=== PATIENT | male | born 1960 | race African-American/Black ===

== ENCOUNTER 2016-06-22 19:25 | Inpatient (IN) | payer OTHER ==
[2016-06-22 19:30] VITALS: BMI 23.2
[2016-06-22] MEDS ORDERED: chlordiazePOXIDE HCL 25 MG CAPSULE PO ONE (19:48)
[2016-06-22] MEDS ORDERED: SODIUM CHLORIDE 0.9% 500 ML INFUS.BAG IV ONE (19:48)
[2016-06-22] MEDS ORDERED: FOLIC ACID INJECTION - 1 MG, THIAMINE HCL 100 MG, MULTIVIT INJECTION ADULT 10 ML in SOD... IVPB ONE (19:51)
[2016-06-22 20:26] LABS: INR 1.21 (0.82-1.09); PROTHROMBIN TIME (PATIENT) 13.4 SEC (9.98-11.88)
[2016-06-22 20:33] LABS: MCH 36.8 pg (25.7-33.7); MCHC 33.2 g/dl (32.0-35.9); MEAN CELL VOLUME 110.8 fl (80-96); MEAN PLT VOLUME 10.2 fl (7.5-11.1); PLATELET COUNT 110 K/MM3 (134-434); RDW 15.7 % (11.9-15.9); WHITE BLOOD COUNT 6.4 K/mm3 (4.0-10.0)
[2016-06-22 20:43] LABS: ALCOHOL < 5.0 mg/dl (0-5)
[2016-06-22 20:47] LABS: TROPONIN I < 0.02 ng/ml (0.00-0.05)
[2016-06-22 20:55] LABS: ALBUMIN 3.3 g/dl (3.4-5.0); CALCIUM 8.8 mg/dL (8.5-10.1); PHOSPHOROUS 1.8 mg/dL (2.5-4.9); TOT PROT 7.6 g/dl (6.4-8.2)
[2016-06-22 20:59] LABS: BILIRUBIN,TOTAL 5.8 mg/dL (0.2-1.0); MAGNESIUM 1.8 mg/dL (1.8-2.4); PLATELET ESTIMATE SLT DECREASED (NORMAL); TARGET CELLS 3+
[2016-06-22 21:04] LABS: SALICYLATE < 4.0 mg/dl (0.0-30.0)
[2016-06-22] MEDS ORDERED: LIDOCAINE HCL 2% (50ML VIAL) SQ ONE (21:25)
[2016-06-22] MEDS ORDERED: LORAZEPAM CARPU-JECT 2 MG/ML DISP.SYRIN IVPUSH ONE (21:25)
[2016-06-22] MEDS ORDERED: TETANUS AND DIPHTHERIA TOXOID 0.5 ML DISP.SYRIN IM ONE (21:25)
--- NOTE | 2016-06-22 21:27 | PDOC ---
[id number]: Patient, Family Exam Limitations: No Limitations - History of Present Illness Initial Comments: 06/22/16 21:45 The patient is a 55 year old male with significant past medical history of seizure disorder and etoh use who presents to the ED BIBA from home with head laceration s/p unwitnessed fall prior to arrival. Patient is a poor historian, however family, at bedside, patient is answering questions appropriately and is at his neurological baseline. States he was carrying garbage bags to and from his apartment to the trash bin, where he had to stop multiple times because he felt tired. During his last trip, the last thing he remembers was walking down the stairs and then waking up on the floor. States when he woke up his neighbor and EMS was already present at the scene. Unsure of how long he lost consciousness for. He admits to not being compliant with his seizure medications. Patient does not give a clear history and is currently not taking any medications. Patient reports he has not been eating or sleeping well for the last month. Admits he has been feeling a bit down after his divorce a couple months ago with no suicidal/homicidal ideation. Denies any generalize pain, changes in vision, headache, dizziness, bladder/bowel incontinence, paresthesias, or changes in sensation. The patient denies fever, chills, cough, SOB, chest pain, and palpitations. The patient denies abdominal pain, nausea, vomiting, and diarrhea. Allergies: NKDA Social History: etoh abuse. Lives at home alone. Past Surgical History: hernia s/p repair PCP: Dr. Bharathi Fitzpatrick <Martine Herring - Last Filed: 06/23/16 02:25> <Shekhar Sorenson - Last Filed: 06/23/16 06:26> - General Chief Complaint: Seizure Stated Complaint: INJURY Past History <Key Seaman - Last Filed: 06/23/16 00:33> <Martine Herring - Last Filed: 06/23/16 02:25> - Past Medical History HTN: Yes Suicide Attempt (Hx): No Seizures: Yes - Immunization History Immunization Up to Date: No - Psycho/Social/Smoking Cessation Hx Anxiety: No Suicidal Ideation: No Smoking History: Former smoker Have you smoked in the past 12 months: No Number of Cigarettes Smoked Daily: 0 If you are a former smoker, when did you quit?: 2 years Cigars Per Day: 0 Information on smoking cessation initiated: No 'Breaking Loose' booklet given: 10/23/14 Hx Alcohol Use: No Drug/Substance Use Hx: No Substance Use Type: Alcohol <Shekhar Sorenson - Last Filed: 06/23/16 06:26> - Past Medical History Allergies/Adverse Reactions: Allergies Allergy/AdvReac Type Severity Reaction Status Date / Time No Known Allergies Allergy Verified 06/23/16 02:01 Home Medications: Ambulatory Orders NK [No Known Home Medication] 06/23/16 Review of Systems - Review of Systems Able to Perform ROS?: Yes Comments:: 06/22/16 21:45 GENERAL/CONSTITUTIONAL: +lack of appetite No fever or chills. No weakness. HEAD, EYES, EARS, NOSE AND THROAT: No change in vision. No ear pain or discharge. No sore throat. CARDIOVASCULAR: No chest pain or shortness of breath. RESPIRATORY: No cough, wheezing, or hemoptysis. GASTROINTESTINAL: No nausea, vomiting, diarrhea or constipation. GENITOURINARY: No dysuria, frequency, or change in urination. MUSCULOSKELETAL: No joint or muscle swelling or pain. No neck or back pain. SKIN: No rash NEUROLOGIC: +LOC No headache, vertigo, or change in strength/sensation. ENDOCRINE: No increased thirst. No abnormal weight change. HEMATOLOGIC/LYMPHATIC: No anemia, easy bleeding, or history of blood clots. ALLERGIC/IMMUNOLOGIC: No hives or skin allergy. <Martine Herring - Last Filed: 06/23/16 02:25> *Physical Exam - Vital Signs Last Vital Signs Temp Pulse Resp BP Pulse Ox 98.1 F 20 L 108 H 140/99 97 06/22/16 19:28 06/22/16 19:28 06/22/16 19:28 06/22/16 19:28 06/22/16 19:28 <Key Seaman - Last Filed: 06/23/16 00:33> - Vital Signs Last Vital Signs Temp Pulse Resp BP Pulse Ox 98.1 F 20 L 108 H 140/99 97 06/22/16 19:28 06/22/16 19:28 06/22/16 19:28 06/22/16 19:28 06/22/16 19:28 - Physical Exam Comments: 06/22/16 22:09 GENERAL: Awake, alert, and fully oriented, in no acute distress. Pt is uncomfortable appearing and tremulous. Unkempt. Pt is not in collar on arrival, place into stable mobilization upon physician encounter. HEAD: No evidence of trauma aside from frontal midline stellate/burst superficial laceration 2cm superior to glabrum, no depression or deformity, no midline cervical tenderness on palpation. Unable to clear c spine via nexxus. EYES: Otherwise unremarkable except for icterus, bite is reproducible, no malocclusion. No periorbital anesthesia. No pain with extraocular movement, no nausea with extraocular movement. ENT: Auricles normal inspection, hearing grossly normal, nares patent, oropharynx clear without exudates. Moist mucosa NECK: Normal ROM, supple, no lymphadenopathy, JVD, or masses. LUNGS: Breath sounds equal, clear to auscultation bilaterally. No wheezes, and no crackles HEART: Regular rate and rhythm, normal S1 and S2, no murmurs, rubs or gallops ABDOMEN: Soft, nontender, normoactive bowel sounds. No guarding, no rebound. No masses. No caput medusae noted. EXTREMITIES: Left knee abrasion midline and mild edema of the knee. No restriction of movement. No valgus or varum laxity or deformity. No crepitus. No erythema or tenderness NEUROLOGICAL: Cranial nerves II through XII grossly intact and symmetric. Normal speech. No neurological deficits. As per family, patient is at neurological baseline. SKIN: Warm, Dry, normal turgor, no rashes noted. No telangiectasia. <Martine Herring - Last Filed: 06/23/16 02:25> - Vital Signs Last Vital Signs Temp Pulse Resp BP Pulse Ox 98.1 F 20 L 108 H 140/99 97 06/22/16 19:28 06/22/16 19:28 06/22/16 19:28 06/22/16 19:28 06/22/16 19:28 <Shekhar Sorenson - Last Filed: 06/23/16 06:26> Procedures - Laceration/Wound Repair Medial Frontal Wound Length: 2.6 to 5.0 cm Wound Explored: clean, no foreign body present Wound's Depth, Shape: stellate Irrigated w/ Saline: Yes Betadine Prep: Yes Anesthesia: 1% Lidocaine w/ Epi Amount of Anesthetic (ccs): 4 Wound Repaired With: Sutures Suture Size/Type: 6:0 Number of Sutures: 10 Sterile Dressing Applied: Yes (xerform, dry gauze) <Key Seaman - Last Filed: 06/23/16 00:33> Heart Score/ECG Review - ECG Impressions Comment:: 06/22/16 23:40 NSR @79bpm Voltage criteria for L ventricular hypertrophy L anterior fascicular block Nonspecific T wave abnormality <Martine Herring - Last Filed: 06/23/16 02:25> ED Treatment Course - LABORATORY CBC & Chemistry Diagram: 06/22/16 19:57 06/22/16 19:57 - ADDITIONAL ORDERS Additional order review: Laboratory Results 06/22/16 06/22/16 06/22/16 19:57 19:57 19:57 INR Sodium Potassium Chloride Carbon Dioxide Anion Gap BUN Creatinine Creat Clearance w eGFR Random Glucose Lactic Acid Calcium Phosphorus Magnesium Total Bilirubin AST ALT Alkaline Phosphatase Creatine Kinase 231 Creatine Kinase Index 1.1 CK-MB (CK-2) 2.641 CK-MB (CK-2) Rel Index Cancelled Troponin I < 0.02 B-Natriuretic Peptide Total Protein Albumin Lipase Salicylates < 4.0 Acetaminophen < 2.0 L Alcohol, Quantitative < 5.0 06/22/16 06/22/16 06/22/16 19:57 19:57 19:57 INR 1.21 H D Sodium 133 L Potassium 3.2 L Chloride 94 L D Carbon Dioxide 19 L D Anion Gap 20 H BUN 13 Creatinine 2.0 H D Creat Clearance w eGFR 35.13 Random Glucose 209 H D Lactic Acid 6.694 H* Calcium 8.8 Phosphorus 1.8 L Magnesium 1.8 Total Bilirubin 5.8 H D AST 521 H D ALT 176 H D Alkaline Phosphatase 607 H D Creatine Kinase Creatine Kinase Index CK-MB (CK-2) CK-MB (CK-2) Rel Index Troponin I B-Natriuretic Peptide 185.71 H Total Protein 7.6 Albumin 3.3 L Lipase 138 Salicylates Acetaminophen Alcohol, Quantitative 06/22/16 19:57 RBC 3.14 L MCV 110.8 H MCHC 33.2 RDW 15.7 MPV 10.2 Neutrophils % 92.0 H D Lymphocytes % 2.0 L D Monocytes % 5.0 Basophils % 1.0 - Medications Given in the ED: ED Medications Discontinued Medications Generic Name Dose Route Start Last Admin Trade Name Domonique PRN Reason Stop Dose Admin Chlordiazepoxide HCl 50 mg 06/22/16 19:48 06/22/16 21:15 Librium - PO 06/22/16 19:49 50 mg ONCE ONE Administration Lidocaine HCl 20 mg 06/22/16 21:25 06/22/16 21:57 Xylocaine 2% SQ 06/22/16 21:26 20 mg ONCE ONE Administration Lidocaine/Epinephrine 20 ml 06/22/16 21:36 06/22/16 21:37 Xylocaine 1%-Epi 1:100,000 IJ 06/22/16 21:37 1 applic ONCE ONE Administration Lorazepam 1 mg 06/22/16 21:25 06/22/16 21:53 Ativan Injection - IVPUSH 06/22/16 21:26 1 mg ONCE ONE Administration Sodium Chloride 500 ml 06/22/16 19:48 06/22/16 21:27 Normal Saline - IV 06/22/16 19:49 500 ml ONCE ONE Administration Tetanus/Diphtheria Toxoids Adsorbed 0.5 ml 06/22/16 21:25 06/22/16 21:53 Decavac - IM 06/22/16 21:26 0.5 ml .ONCE ONE Administration <Key Seaman - Last Filed: 06/23/16 00:33> - LABORATORY CBC & Chemistry Diagram: 06/22/16 19:57 06/22/16 19:57 - ADDITIONAL ORDERS Additional order review: Laboratory Results 06/22/16 06/22/16 06/22/16 19:57 19:57 19:57 INR Sodium Potassium Chloride Carbon Dioxide Anion Gap BUN Creatinine Creat Clearance w eGFR Random Glucose Lactic Acid Calcium Phosphorus Magnesium Total Bilirubin AST ALT Alkaline Phosphatase Creatine Kinase 231 Creatine Kinase Index 1.1 CK-MB (CK-2) 2.641 CK-MB (CK-2) Rel Index Cancelled Troponin I < 0.02 B-Natriuretic Peptide Total Protein Albumin Lipase Salicylates < 4.0 Acetaminophen < 2.0 L Alcohol, Quantitative < 5.0 06/22/16 06/22/16 06/22/16 19:57 19:57 19:57 INR 1.21 H D Sodium 133 L Potassium 3.2 L Chloride 94 L D Carbon Dioxide 19 L D Anion Gap 20 H BUN 13 Creatinine 2.0 H D Creat Clearance w eGFR 35.13 Random Glucose 209 H D Lactic Acid 6.694 H* Calcium 8.8 Phosphorus 1.8 L Magnesium 1.8 Total Bilirubin 5.8 H D AST 521 H D ALT 176 H D Alkaline Phosphatase 607 H D Creatine Kinase Creatine Kinase Index CK-MB (CK-2) CK-MB (CK-2) Rel Index Troponin I B-Natriuretic Peptide 185.71 H Total Protein 7.6 Albumin 3.3 L Lipase 138 Salicylates Acetaminophen Alcohol, Quantitative 06/22/16 19:57 RBC 3.14 L MCV 110.8 H MCHC 33.2 RDW 15.7 MPV 10.2 Neutrophils % 92.0 H D Lymphocytes % 2.0 L D Monocytes % 5.0 Basophils % 1.0 - RADIOLOGY Radiograph Interpretation: 06/23/16 02:25 EXAM: CT abdomen and pelvis without contrast Reviewed by Imaging supervisor carton and can supply: FINDINGS: Lung bases are clear. The visualized cardiac chambers are normal size and configuration. Gallbladder is collapsed or removed. No biliary duct dilation. Liver is mildly enlarged at 18.3 cm. Normal unenhanced pancreas, spleen, adrenal glands and kidneys. The stomach and abdominal small and large bowel are normal. There is no aortic aneurysm. There is no significant retroperitoneal lymphadenopathy. No mesenteric edema or retroperitoneal hematoma. The pelvic small and large bowel are normal. The appendix is normal. The urinary bladder and prostate gland are normal. No pelvic free fluid is identified. There is no significant pelvic lymphadenopathy. Tiny fat-containing bilateral inguinal hernias are noted. No fractures identified. IMPRESSION: Mild hepatomegaly. No evidence of acute pathology. - Medications Given in the ED: ED Medications Discontinued Medications Generic Name Dose Route Start Last Admin Trade Name Freq PRN Reason Stop Dose Admin Sodium Chloride 500 ml 06/22/16 19:48 06/22/16 21:27 Normal Saline - IV 06/22/16 19:49 500 ml ONCE ONE Administration <Martine Herring - Last Filed: 06/23/16 02:25> - LABORATORY CBC & Chemistry Diagram: 06/22/16 19:57 06/22/16 19:57 - ADDITIONAL ORDERS Additional order review: Laboratory Results 06/22/16 06/22/16 06/22/16 19:57 19:57 19:57 INR Sodium Potassium Chloride Carbon Dioxide Anion Gap BUN Creatinine Creat Clearance w eGFR Random Glucose Lactic Acid Calcium Phosphorus Magnesium Total Bilirubin AST ALT Alkaline Phosphatase Creatine Kinase 231 Creatine Kinase Index 1.1 CK-MB (CK-2) 2.641 CK-MB (CK-2) Rel Index Cancelled Troponin I < 0.02 B-Natriuretic Peptide Total Protein Albumin Lipase Salicylates < 4.0 Acetaminophen < 2.0 L Alcohol, Quantitative < 5.0 06/22/16 06/22/16 06/22/16 19:57 19:57 19:57 INR 1.21 H D Sodium 133 L Potassium 3.2 L Chloride 94 L D Carbon Dioxide 19 L D Anion Gap 20 H BUN 13 Creatinine 2.0 H D Creat Clearance w eGFR 35.13 Random Glucose 209 H D Lactic Acid 6.694 H* Calcium 8.8 Phosphorus 1.8 L Magnesium 1.8 Total Bilirubin 5.8 H D AST 521 H D ALT 176 H D Alkaline Phosphatase 607 H D Creatine Kinase Creatine Kinase Index CK-MB (CK-2) CK-MB (CK-2) Rel Index Troponin I B-Natriuretic Peptide 185.71 H Total Protein 7.6 Albumin 3.3 L Lipase 138 Salicylates Acetaminophen Alcohol, Quantitative 06/22/16 19:57 RBC 3.14 L MCV 110.8 H MCHC 33.2 RDW 15.7 MPV 10.2 Neutrophils % 92.0 H D Lymphocytes % 2.0 L D Monocytes % 5.0 Basophils % 1.0 - RADIOLOGY Radiology Studies Ordered: Category Date Time Status CERVICAL SPINE CT W/O CONTR [CT] Stat CT Scan 06/22/16 20:[address] W/O CONTRAST [CT] Stat CT Scan 06/22/16 20:[address] WITHOUT CONTRAST [CT] Stat CT Scan 06/22/16 19:47 Completed CHEST X-RAY PORTABLE* [RAD] Stat Radiology 06/22/16 19:46 Completed <Shekhar Sorenson - Last Filed: 06/23/16 06:26> Medical Decision Making - Medical Decision Making 06/22/16 21:[address] Malika Neri (via answering service) at 21:39 Awaiting call back 06/22/16 22:56 Second call placed to Dr. Neri (via answering service) at 22:56 and patient's case was discussed. <Martine Herring - Last Filed: 06/23/16 02:25> - Medical Decision Making 06/22/16 21:37 This is a 55yo m with chronic alcoholism who is noted to have unwitnessed fall with significant laceration of the forehead and noncompliant with medication and healthcare in general. He also is mildly treumlous and has icterus; he has a negative CT head, maxillofacial and cervical spine; CXR negative; EKG reassuring. His PE shows only tremulousness, iceterus, laceration. He will be given ativen IV and librium PO; will hydrate, give banana bag; will obtain CT abd/pelvis with contrast for better characterization of any intraabdominal lesions. Will admit patient to telemetry for unwitnessed fall of unknown etiology. 06/22/16 23:05 The patient has negative CT and is endorsed to Dr. Neri for further management to telemetry. 06/23/16 06:25 <Shekhar Sorenson - Last Filed: 06/23/16 06:26> *DC/Admit/Observation/Transfer <Key Seaman - Last Filed: 06/23/16 00:33> - Attestations Scribe Attestion: 06/22/16 21:46 Documentation prepared by Martine Herring, acting as medical laboratory specialist for Shekhar Sorenson MD, MD <Martine Herring - Last Filed: 06/23/16 02:25> - Discharge Dispostion Admit: Yes - Attestations Physician Attestion: 06/23/16 06:26 I, Dr. Shekhar Sorenson MD, attest that this document has been prepared under my direction and personally reviewed by me in its entirety. I further attest, that it accurately reflects all work, treatment, procedures and medical decision -making performed by me. <Shekhar Sorenson - Last Filed: 06/23/16 06:26> Diagnosis at time of Disposition: Alcoholism, Dehydration Syncope Qualifiers: Syncope type: unspecified Qualified Code(s): R55 - Syncope and collapse Facial laceration Qualifiers: Encounter type: subsequent encounter Qualified Code(s): S01.81XD - Laceration without foreign body of other part of head, subsequent encounter - Discharge Dispostion Condition at time of disposition: Guarded - Referrals
[2016-06-22] MEDS ORDERED: LIDOCAINE 1%/EPI 1:100000 (20 ML MULTI DOSE VIAL) IJ ONE (21:36)
[2016-06-22] MEDS ORDERED: LIDOCAINE HCL 2% (20ML MULTI-DOSE VIAL) NR ONE (21:40)
[2016-06-22] MEDS ORDERED: LORAZEPAM CARPU-JECT 2 MG/ML DISP.SYRIN ONE (21:41)
[2016-06-22] MEDS ORDERED: chlordiazePOXIDE HCL 25 MG CAPSULE ONE (21:42)
[2016-06-23] MEDS: DEXTROSE 5%-0.45% SALINE 1,000 ML IV SCH ×3 (02:35→22:53)
[2016-06-23] MEDS ORDERED: chlordiazePOXIDE HCL 25 MG CAPSULE PO SCH (06:00)
[2016-06-23] MEDS ORDERED: chlordiazePOXIDE HCL 25 MG CAPSULE ONE ×3 (06:51→12:23)
[2016-06-23 07:46] LABS: MCH 36.6 pg (25.7-33.7); MCHC 32.7 g/dl (32.0-35.9); MEAN CELL VOLUME 111.6 fl (80-96); MEAN PLT VOLUME 10.4 fl (7.5-11.1); PLATELET COUNT 92 K/MM3 (134-434); RDW 15.7 % (11.9-15.9); WHITE BLOOD COUNT 6.6 K/mm3 (4.0-10.0)
[2016-06-23 07:52] LABS: URINE APPEARANCE CLOUDY; URINE COLOR AMBER; URINE GLUCOSE (UA) 1+ (NEGATIVE); URINE KETONE TRACE (NEGATIVE); URINE LEUK ESTERASE NEGATIVE (NEGATIVE); URINE NITRITE NEGATIVE (NEGATIVE); URINE UROBILINOGEN 4.0 E.U/dl E.U./dl (0.2-1.0)
[2016-06-23 07:57] LABS: URINE BLOOD 2+ (NEGATIVE); URINE PROTEIN 2+ (NEGATIVE)
[2016-06-23 08:00] LABS: URINE BACTERIA RARE /hpf (NONE SEEN); URINE HYALINE CAST 28 /lpf; URINE MUCUS MANY; URINE RBC 2 /hpf (0-3); URINE WBC 39 /hpf (3-5)
[2016-06-23 08:27] LABS: ALBUMIN 2.8 g/dl (3.4-5.0); AMYLASE 63 U/L (25-115); ANION GAP 13 (8-16); BILIRUBIN,TOTAL 6.7 mg/dL (0.2-1.0); CALCIUM 9.1 mg/dL (8.5-10.1); CO2 23 mmol/L (21-32); COCKROFT - GAULT 76; CREATININE 1.1 mg/dL (0.7-1.3); GLUCOSE,RANDOM 95 mg/dL (74-106); SGPT/ALT 161 U/L (12-78); TOT PROT 6.7 g/dl (6.4-8.2)
[2016-06-23 08:31] LABS: ALK PHOS 531 U/L (45-117); TROPONIN I 0.02 ng/ml (0.00-0.05)
[2016-06-23 08:46] LABS: SGOT/AST 518 U/L (15-37)
--- NOTE | 2016-06-23 09:00 | PN ---
Progress Note (short form) - Note Progress Note: Consult Dictated Syncope Plan: Telemetry Echo Watch for withdrawal.
[2016-06-23] MEDS ORDERED: POTASSIUM CHLORIDE TABS 20 MEQ TABLET.ER (FP) PO ONE (09:33)
[2016-06-23] MEDS ORDERED: POTASSIUM CHLORIDE TABS 10 MEQ TABLET.ER (FP) ONE (09:34)
[2016-06-23] MEDS: POTASSIUM CHLORIDE TABS 20 MEQ TABLET.ER (FP) PO SCH (09:35)
[2016-06-23] MEDS ORDERED: HEPARIN NA (PORCINE) 5,000 UNITS/ML 1ML VIAL ONE (09:44)
[2016-06-23] MEDS ORDERED: THIAMINE HCL 100 MG TABLET (FP) PO SCH (10:00)
--- NOTE | 2016-06-23 10:03 | CONS ---
CARDIOLOGY CONSULTATION DATE OF CONSULTATION: 06/23/2016 CONSULTATION REQUESTED BY: Malika Neri MD REASON FOR CONSULTATON: Syncope. HISTORY OF PRESENT ILLNESS: The patient is a 55-year-old male with past history of seizure disorder and alcohol abuse who was brought into the emergency room by ambulance after falling with head laceration after an unwitnessed fall. The family was at the bedside and reported to the ER that he was at his neurological baseline. He states that he was carrying garbage bags up and down stairs from his apartment to the trash bin where he had to stop on multiple occasions, feeling generally tired. He denies chest pain or palpitation. He does not recall falling although there is report that he lost consciousness. Head CT showed no intracranial hemorrhage but some soft tissue swelling. Patient is unable to give a totally clear history. He has been upset and stressed out after his recent divorce. He denies prior cardiac history. PAST MEDICAL HISTORY: His past medical history is as above. CURRENT MEDICATIONS: Norvasc 5 mg daily, Librium 50 t.i.d., folic acid, subcutaneous heparin 5000 b.i.d. for DVT prophylaxis, potassium supplementation and vitamin B1 supplementation. ALLERGIES: He has no allergies. FAMILY HISTORY: Negative for early CAD or sudden cardiac . SOCIAL HISTORY: He is a former smoker and drinks alcohol heavily. PHYSICAL EXAMINATION: Vital signs: He is afebrile. Temperature 97.5, pulse 89, blood pressure 140/90. O2 saturation 97% on room air. Anicteric. HEENT: No carotid bruits. Heart: S1, S2, regular, no murmurs. Chest: Clear. Abdomen: Soft, nontender. Extremities: No edema. EKG showed normal sinus rhythm with LVH, possible old septal ND. Chest x-ray was done in the emergency room and showed no acute infiltrates. CBC: White count 6.6, hematocrit 32.7, platelets 92. INR 1.2. Sodium 136, potassium 3.1, currently being repleted. Creatinine 1.1. Lactic acid 6.6. AST 518, ALT 16, alkaline phosphatase 531. CK and troponin negative x 2 sets. Tox screen was negative for salicylates, Tylenol or alcohol. Patient states he has not had a drink in over 2 weeks. Urinalysis showed 2+ protein, 1+ glucose, trace ketones, 2+ blood. Negative nitrites and negative leukocyte esterase. ASSESSMENT: Syncopal episode. PLAN: 1. Telemetry x 24 hours to rule out arrhythmia. 2. Echocardiogram for assessment of structural heart disease. 3. Consideration for neurological evaluation. 4. Watch for signs of withdrawal. Thank you for the consultation. Will follow. SOLO PEDERSEN M.D. SUMAYA/[id number]
[2016-06-23] MEDS: amLODIPine BESYLATE 5 MG TABLET (FP) PO SCH (10:21)
[2016-06-23] MEDS: FOLIC ACID 1 MG TABLET (FP) PO SCH (10:21)
[2016-06-23] MEDS: HEPARIN NA (PORCINE) 5,000 UNITS/ML 1ML VIAL SQ SCH ×2 (10:21→22:48)
[2016-06-23] MEDS ORDERED: chlordiazePOXIDE HCL 25 MG CAPSULE PO PRN (10:45)
--- NOTE | 2016-06-23 10:51 | CONSULT ---
Consult Detox [facility] Reason for Current Admission/Consult: Alcohol withdrawal sx. Referred by:: Malika Neri MD - History History of Present Illness: 55 y/o man BIBA because of a fall and laceration of forehead. According to pt. last drink was almost a week ago. - History Source History Provided By: Patient, Medical Record Limitations to Obtaining History: No Limitations - Alcohol/Substance Use Hx Alcohol Use: Yes - Past Medical History [employer]PER[employer]OR [employer]ISH[employer] RO[employer]: Yes: Seizure Cardio/Vascular: Yes: HTN - Significant Medical Findings: Laboratory Tests 06/22/16 06/22/16 06/22/16 19:57 19:57 19:57 WBC 6.4 RBC 3.14 L Hgb 11.6 L Hct 34.8 L MCV 110.8 H MCHC 33.2 RDW 15.7 Plt Count 110 L D MPV 10.2 Neutrophils % 92.0 H D Lymphocytes % 2.0 L D Monocytes % 5.0 Basophils % 1.0 Differential Comment Manual diff done Platelet Estimate Slt decreased Macrocytosis 4+ Target Cells 3+ Morphology Comment Slide scanned INR 1.21 H D Sodium 133 L Potassium 3.2 L Chloride 94 L D Carbon Dioxide 19 L D Anion Gap 20 H BUN 13 Creatinine 2.0 H D Creat Clearance w eGFR 35.13 Random Glucose 209 H D Lactic Acid Calcium 8.8 Phosphorus 1.8 L Magnesium 1.8 Total Bilirubin 5.8 H D AST 521 H D ALT 176 H D Alkaline Phosphatase 607 H D Creatine Kinase Creatine Kinase Index CK-MB (CK-2) CK-MB (CK-2) Rel Index Troponin I B-Natriuretic Peptide 185.71 H Total Protein 7.6 Albumin 3.3 L Total Amylase Lipase 138 Urine Color Urine Appearance Urine pH Ur Specific [place] Urine Protein Urine Glucose (UA) Urine Ketones Urine Blood Urine Nitrite Urine Bilirubin Urine Urobilinogen Ur Leukocyte Esterase Urine RBC Urine WBC Urine Bacteria Hyaline Casts Urine Mucus Salicylates Acetaminophen Alcohol, Quantitative 06/22/16 06/22/16 06/22/16 19:57 19:57 19:57 WBC RBC Hgb Hct MCV MCHC RDW Plt Count MPV Neutrophils % Lymphocytes % Monocytes % Basophils % Differential Comment Platelet Estimate Macrocytosis Target Cells Morphology Comment INR Sodium Potassium Chloride Carbon Dioxide Anion Gap BUN Creatinine Creat Clearance w eGFR Random Glucose Lactic Acid 6.694 H* Calcium Phosphorus Magnesium Total Bilirubin AST ALT Alkaline Phosphatase Creatine Kinase 231 Creatine Kinase Index 1.1 CK-MB (CK-2) 2.641 CK-MB (CK-2) Rel Index Troponin I < 0.02 B-Natriuretic Peptide Total Protein Albumin Total Amylase Lipase Urine Color Urine Appearance Urine pH Ur Specific [place] Urine Protein Urine Glucose (UA) Urine Ketones Urine Blood Urine Nitrite Urine Bilirubin Urine Urobilinogen Ur Leukocyte Esterase Urine RBC Urine WBC Urine Bacteria Hyaline Casts Urine Mucus Salicylates < 4.0 Acetaminophen < 2.0 L Alcohol, Quantitative < 5.0 06/22/16 06/23/16 06/23/16 19:57 06:10 06:10 WBC 6.6 RBC 2.93 L Hgb 10.7 L Hct 32.7 L MCV 111.6 H MCHC 32.7 RDW 15.7 Plt Count 92 L MPV 10.4 Neutrophils % Y Lymphocytes % Y Monocytes % Basophils % Differential Comment Platelet Estimate Macrocytosis Target Cells Morphology Comment INR Sodium 136 Potassium 3.1 L Chloride 100 Carbon Dioxide 23 D Anion Gap 13 BUN 9 D Creatinine 1.1 D Creat Clearance w eGFR > 60 Random Glucose 95 D Lactic Acid Calcium 9.1 Phosphorus Magnesium Total Bilirubin 6.7 H AST 518 H ALT 161 H Alkaline Phosphatase 531 H Creatine Kinase 583 H D Creatine Kinase Index 0.8 CK-MB (CK-2) CK-MB (CK-2) Rel Index Cancelled Troponin I 0.02 B-Natriuretic Peptide Total Protein 6.7 Albumin 2.8 L Total Amylase 63 Lipase 229 Urine Color Urine Appearance Urine pH Ur Specific [place] Urine Protein Urine Glucose (UA) Urine Ketones Urine Blood Urine Nitrite Urine Bilirubin Urine Urobilinogen Ur Leukocyte Esterase Urine RBC Urine WBC Urine Bacteria Hyaline Casts Urine Mucus Salicylates Acetaminophen Alcohol, Quantitative 06/23/16 06/23/16 06:10 07:15 WBC RBC Hgb Hct MCV MCHC RDW Plt Count MPV Neutrophils % Lymphocytes % Monocytes % Basophils % Differential Comment Platelet Estimate Macrocytosis Target Cells Morphology Comment INR Sodium Potassium Chloride Carbon Dioxide Anion Gap BUN Creatinine Creat Clearance w eGFR Random Glucose Lactic Acid Calcium Phosphorus Magnesium Total Bilirubin AST ALT Alkaline Phosphatase Creatine Kinase Creatine Kinase Index CK-MB (CK-2) CK-MB (CK-2) Rel Index Cancelled Troponin I B-Natriuretic Peptide Total Protein Albumin Total Amylase Lipase Urine Color Divine Urine Appearance Cloudy Urine pH 5.0 Ur Specific [place] 1.024 Urine Protein 2+ H Urine Glucose (UA) 1+ H Urine Ketones Trace H Urine Blood 2+ H Urine Nitrite Negative Urine Bilirubin 4.0 Urine Urobilinogen 4.0 e.u/dl Ur Leukocyte Esterase Negative Urine RBC 2 Urine WBC 39 Urine Bacteria Rare Hyaline Casts 28 Urine Mucus Many Salicylates Acetaminophen Alcohol, Quantitative labs noted CIWA Score - CIWA Score Nausea/Vomitin-Mild Nausea/No Vomiting Muscle Tremors: 4-Moderate,w/Arms Extend Anxiety: 4-Mod. Anxious/Guarded Agitation: 3 Paroxysmal Sweats: 3 Orientation: 0-Oriented Tacttile Disturbances: 0-None Auditory Disturbances: 0-None Visual Disturbances: 0-None Headache: 0-None Present CIWA-Ar Total Score: 15 Assessment Plan - Diagnosis (1) Alcohol dependence with uncomplicated withdrawal Status: Acute - Plan Plan: I advice pt. to attend IOP upon discharge. - Medication Detox Regimen/Protocol: Narciso
[2016-06-23 11:25] LABS: PLATELET ESTIMATE SLT DECREASED (NORMAL)
[2016-06-23 11:28] LABS: HOWELL-JOLLY BODIES SEEN
[2016-06-23 11:30] LABS: TARGET CELLS 3+
[2016-06-23] MEDS: chlordiazePOXIDE HCL 25 MG CAPSULE PO SCH ×3 (12:24→22:48)
--- NOTE | 2016-06-23 12:29 | EKG ---
Test Reason : Blood Pressure : / mmHG Vent. Rate : 079 BPM Atrial Rate : 079 BPM P-R Int : 150 ms QRS Dur : 084 ms QT Int : 400 ms P-R-T Axes : 060 036 039 degrees QTc Int : 458 ms NORMAL SINUS RHYTHM VOLTAGE CRITERIA FOR LEFT VENTRICULAR HYPERTROPHY CANNOT RULE OUT SEPTAL INFARCT , AGE UNDETERMINED ABNORMAL ECG WHEN COMPARED WITH ECG OF 23-OCT-2014 15:30, MINIMAL CRITERIA FOR SEPTAL INFARCT ARE NOW PRESENT NONSPECIFIC T WAVE ABNORMALITY NO LONGER EVIDENT IN INFERIOR LEADS T WAVE INVERSION NO LONGER EVIDENT IN ANTERIOR LEADS Confirmed by CLARITA JONES MD ([id number]) on 06/23/2016 12:29:26 PM Referred By: Confirmed By:CLARITA JONES MD
[2016-06-23] MEDS ORDERED: PNEUMOC 13-VAL CONJ-DIP CRM/PF 0.5 ML DISP.SYRIN IM ONE (16:20)
--- NOTE | 2016-06-23 16:37 | HP ---
Admitting History and Physical - Admission History of Present Illness: The patient is a 55 year old male with significant past medical history of seizure disorder and etoh use who presents to the ED BIBA from home with head laceration s/p unwitnessed fall prior to arrival. Patient is a poor historian, however family, at bedside, patient is answering questions appropriately and is at his neurological baseline. States he was carrying garbage bags to and from his apartment to the trash bin, where he had to stop multiple times because he felt tired. During his last trip, the last thing he remembers was walking down the stairs and then waking up on the floor. States when he woke up his neighbor and EMS was already present at the scene. Unsure of how long he lost consciousness for. He admits to not being compliant with his seizure medications. Patient does not give a clear history and is currently not taking any medications. Patient reports he has not been eating or sleeping well for the last month. Admits he has been feeling a bit down after his divorce a couple months ago with no suicidal/homicidal ideation. Denies any generalize pain, changes in vision, headache, dizziness, bladder/bowel incontinence, paresthesias, or changes in sensation. 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 Cardiovascular: Yes: HTN - Smoking History Smoking history: Current some day smoker Have you smoked in the past 12 months: No Aproximately how many cigarettes per day: 2 If you are a former smoker, when did you quit?: 2 years - Alcohol/Substance Use Hx Alcohol Use: Yes History of Substance Use: reports: None (denies) Home Medications - Allergies Allergies/Adverse Reactions: Allergies Allergy/AdvReac Type Severity Reaction Status Date / Time No Known Allergies Allergy Verified 06/23/16 02:01 - Home Medications Home Medications: Ambulatory Orders Amlodipine Besylate [Norvasc -] 5 mg PO DAILY #30 tablet 06/27/16 Folic Acid - 1 mg PO DAILY #30 tablet 06/27/16 Lactulose 20 gm PO DAILY #30 ml 06/27/16 Thiamine HCl [Vitamin B1 Injection -] 250 mg IVPB Q8H-IV #30 vial 06/27/16 Family Disease History - Family Disease History Family History: Unremarkable Review of Systems Unable to obtain ROS, reason: PT CONFUSED Physical Examination Vital Signs: Vital Signs Temperature 98 F 06/23/16 15:55 Pulse Rate 85 06/23/16 15:55 Respiratory Rate 18 06/23/16 15:55 Blood Pressure 122/92 06/23/16 15:55 O2 Sat by Pulse Oximetry (%) 98 06/23/16 15:55 Eyes: Yes: WNL HENT: Yes: WNL Neck: Yes: WNL Cardiovascular: Yes: Tachycardia Respiratory: Yes: WNL, Regular, CTA Bilaterally Gastrointestinal: Yes: WNL, Normal Bowel Sounds, Soft Musculoskeletal: Yes: WNL Extremities: Yes: WNL Neurological: Yes: WNL, Alert, Oriented ...Motor Strength: WNL Labs: CBC, BMP 06/23/16 06:10 06/23/16 06:10 Problem List - Problems (1) Abnormal LFTs (liver function tests) Code(s): R79.89 - OTHER SPECIFIED ABNORMAL FINDINGS OF BLOOD CHEMISTRY (2) Alcohol dependence with withdrawal Code(s): F10.239 - ALCOHOL DEPENDENCE WITH WITHDRAWAL, UNSPECIFIED Qualifiers : Complication of substance-induced condition: uncomplicated Qualified Code(s): F10.230 - Alcohol dependence with withdrawal, uncomplicated (3) Facial laceration Code(s): S01.81XA - LACERATION W/O FOREIGN BODY OF OTH PART OF HEAD, INIT ENCNTR Qualifiers: Encounter type: subsequent encounter Qualified Code(s): S01.81XD - Laceration without foreign body of other part of head, subsequent encounter (4) PTSD (post-traumatic stress disorder) Code(s): F43.10 - POST-TRAUMATIC STRESS DISORDER, UNSPECIFIED
[2016-06-23] MEDS ORDERED: PNEUMOCOCCAL 23 VACCINE 0.5 ML VIAL IM ONE (16:45)
--- NOTE | 2016-06-23 17:05 | CON.GI ---
Consult Consult Specialty:: gastroenterology Referred by:: Dr Neri Reason for Consultation:: elevated liver enzymes - History of Present Illness History of Present Illness: Obtained from his daughter Hillary. 55 y/o male with PMH of alcohol abuse and depression was asked to be seen because of jaundice. He juli drinks. Last night had a syncopal episode hitting his forehead.Patient still has fine tremors. 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 Cardio/Vascular: Yes: HTN - Alcohol/Substance Use Hx Alcohol Use: Yes History of Substance Use: reports: None (denies) - Smoking History Smoking history: Current some day smoker Have you smoked in the past 12 months: No Aproximately how many cigarettes per day: 2 If you are a former smoker, when did you quit?: 2 years - Social History Usual Living Arrangement: Alone Home Medications - Allergies Allergies/Adverse Reactions: Allergies Allergy/AdvReac Type Severity Reaction Status Date / Time No Known Allergies Allergy Verified 06/23/16 02:01 - Home Medications Home Medications: Ambulatory Orders NK [No Known Home Medication] 06/23/16 Review of Systems - Review of Systems Constitutional: denies: Fever Eyes: denies: Blurred Vision HENT: denies: Difficult Swallowing Neck: denies: Decreased ROM Cardiovascular: denies: Chest Pain Respiratory: denies: Cough, SOB Gastrointestinal: denies: No Symptoms, Abdominal Pain, Bloating, Constipation, Diarrhea, Dysphagia, Indigestion, Melena, Nausea, Vomiting Genitourinary: denies: Flank Pain Physical Exam-GI Vital Signs: Vital Signs Temperature 98 F 06/23/16 15:55 Pulse Rate 85 06/23/16 15:55 Respiratory Rate 18 06/23/16 15:55 Blood Pressure 122/92 06/23/16 15:55 O2 Sat by Pulse Oximetry (%) 98 06/23/16 15:55 Labs: CBC, BMP 06/23/16 06:10 06/23/16 06:10 INR, PTT INR 1.21 (0.82-1.09) H D 06/22/16 19:57 Problem List - Problems (1) Alcoholic liver disease, unspecified Assessment/Plan: R>continue detox protocol hepatitis profile asked to join [facility] will need psyche consult for depression please recall as necessary Code(s): K70.9 - ALCOHOLIC LIVER DISEASE, UNSPECIFIED
--- NOTE | 2016-06-23 22:40 | CONSULT ---
Consult - text type - Consultation Consultation Note: NEUROLOGY CONSULTATION is greatly appreciated: This 55 yo RH man lives alone. H/O extensive ETOH and ETOH withdrawal seizures. Admitted here last year and was seen by me after seizure. Was detoxed and d/c'ed on Keppra but possibly never took. Last ETOH was Monday night. Unable to eat or sleep over the last 3 days. Feeling weak and tired. Today admitted with LoC and left facial abrasion quite probably due to unwitnessed seizure. CT of head (reviewed): Mild atrophy. Left frontal scalp swelling. Labs: MCV= 110, 111.6; Lactic acid =6.694 mg%; Bili= 5.8 mg%; AUT=114; FNG=657; Alk phos= 607. U/A suggestive of UTI. MADELINE: Left frontal, nasal, and maxillary abrasion. Neck supple. Neg Battles's sign. NEURO: Oriented but confused, circumlocutious and distracted. CN: II-XII Normal withut nystagmus. Motor: No drift. Tremulous. Brisk reflexes. No FTN Dystaxia. Romberg neg. Slight shuffle. IMP: ETOH- withdrawal seizure. Pending DT's. Moderate encephalopathy. SUGGEST: Continue librium detox. Consult Dr. Blakely. Give parenteral thaimine 250 mg over 1 hour in 100 cc NS q 8 hrs x three days. First dose stat. Check B12 and folate levels. Check ammonia levels. Hepatology consultation. Consider antibiotics for UTI. Detox placement when stable. Thank you very much, Boris Ruiz MD
[2016-06-24] MEDS: DEXTROSE 5%-0.45% SALINE 1,000 ML IV SCH ×2 (02:00→18:32)
[2016-06-24] MEDS: THIAMINE HCL 200 MG/2 ML VIAL IVPB SCH ×3 (03:14→18:41)
[2016-06-24] MEDS: chlordiazePOXIDE HCL 25 MG CAPSULE PO SCH ×4 (04:51→22:10)
[2016-06-24 07:17] LABS: MCHC 33.2 g/dl (32.0-35.9); MEAN CELL VOLUME 111.4 fl (80-96); MEAN PLT VOLUME 10.5 fl (7.5-11.1); PLATELET COUNT 80 K/MM3 (134-434); RDW 15.5 % (11.9-15.9); WHITE BLOOD COUNT 6.9 K/mm3 (4.0-10.0)
[2016-06-24 08:59] LABS: METAMYELOCYTE 2 % (0-2)
[2016-06-24 09:04] LABS: TARGET CELLS 2+; TEAR DROP CELLS 3+
[2016-06-24] MEDS: FOLIC ACID 1 MG TABLET (FP) PO SCH (09:16)
[2016-06-24] MEDS: HEPARIN NA (PORCINE) 5,000 UNITS/ML 1ML VIAL SQ SCH ×2 (09:16→22:08)
[2016-06-24] MEDS: POTASSIUM CHLORIDE TABS 20 MEQ TABLET.ER (FP) PO SCH (09:16)
[2016-06-24] MEDS: amLODIPine BESYLATE 5 MG TABLET (FP) PO SCH (09:17)
[2016-06-24 09:18] LABS: ALBUMIN 2.5 g/dl (3.4-5.0); ANION GAP 12 (8-16); BILIRUBIN,TOTAL 7.2 mg/dL (0.2-1.0); CALCIUM 8.5 mg/dL (8.5-10.1); CO2 24 mmol/L (21-32); COCKROFT - GAULT 104; CREATININE 0.8 mg/dL (0.7-1.3); GLUCOSE,RANDOM 99 mg/dL (74-106); SGPT/ALT 147 U/L (12-78)
--- NOTE | 2016-06-24 09:33 | PN ---
Progress Note, Physician History of Present Illness: seen and examined today in nad in nad. no overnight events. no new complaints. - Current Medication List Current Medications: Active Medications Amlodipine Besylate (Norvasc -) 5 mg PO DAILY [facility] Last Admin: 06/24/16 09:17 Dose: 5 mg Chlordiazepoxide HCl (Librium -) 25 mg PO Q4H PRN PRN Reason: WITHDRAWAL(CONT SUBST) Stop: 06/26/16 10:44 Chlordiazepoxide HCl (Librium -) 25 mg PO [id number] [facility] Stop: 06/25/16 05:01 Chlordiazepoxide HCl (Librium -) 15 mg PO [id number] [facility] Stop: 06/26/16 05:01 Folic Acid (Folic Acid -) 1 mg PO DAILY [facility] Last Admin: 06/24/16 09:16 Dose: 1 mg Heparin Sodium (Porcine) (Heparin -) 5,000 unit SQ BID [facility] Last Admin: 06/24/16 09:16 Dose: 5,000 unit Dextrose/Sodium Chloride (D5-1/2ns -) 1,000 mls @ 100 mls/hr IV ASDIR [facility] Last Admin: 06/24/16 02:00 Dose: 100 mls/hr Potassium Chloride (K-Dur -) 40 meq PO DAILY [facility] Last Admin: 06/24/16 09:16 Dose: 40 meq Thiamine HCl (Vitamin B1 Injection -) 250 mg IVPB Q8H-IV [facility] Last Admin: 06/24/16 09:17 Dose: 250 mg - Objective Vital Signs: Vital Signs Temperature 99.8 F H 06/24/16 05:14 Pulse Rate 73 06/24/16 05:14 Respiratory Rate 18 06/24/16 05:14 Blood Pressure 138/90 06/24/16 05:14 O2 Sat by Pulse Oximetry (%) 95 06/23/16 21:00 Constitutional: Yes: No Distress, Calm, Other (mildly tremulous) Eyes: Yes: Conjunctiva Clear, EOM Intact HENT: Yes: Other (facial trauma) Cardiovascular: Yes: Tachycardia, S1, S2. No: Regular Rate and Rhythm, Bradycardia, Pulse Irregular, Bruit, JVD, Gallop, Murmur, Rub, S3, S4, Varicosities Respiratory: Yes: WNL, Regular, CTA Bilaterally. No: Rales, Rhonchi, Wheezes Gastrointestinal: Yes: WNL, Normal Bowel Sounds, Soft. No: Distention, Tenderness Musculoskeletal: Yes: WNL Extremities: Yes: WNL Edema: No Peripheral Pulses WNL: Yes Peripheral Pulses: Left Doralis Pedis: 2+, Right Dorsalis Pedis: 2+ Integumentary: Yes: WNL Neurological: Yes: Alert, Oriented Psychiatric: Yes: Alert, Oriented, Other (mildly tremulous) Labs: CBC, BMP 06/24/16 05:35 INR, PTT INR 1.21 (0.82-1.09) H D 06/22/16 19:57 - ....Imaging Chest X-ray: Report Reviewed, Image Reviewed EKG: Report Reviewed, Image Reviewed Other: Report Reviewed, Image Reviewed (tele-sinus tach, no sig arrhythmias) Assessment/Plan Possible syncope possible etoh withdrawal seizure Plan: No cardiac source of syncope identified Echo showed normal LV/RV size and function, no sig valvular abnl Carotid doppler showed no stenosis Only sinus tach on tele, no arrhythmia Check orthostatic BP Neuro and substance abuse evaluation appreciated Being treated for etoh abuse/withdrawal Ok to dc tele at this point
[2016-06-24 09:43] LABS: ALK PHOS 541 U/L (45-117)
[2016-06-24 09:46] LABS: SGOT/AST 384 U/L (15-37)
--- NOTE | 2016-06-24 16:13 | CON.PSY ---
Psychiatry Consult Chief Complaint: I dont have any psych problems, I drank about a week ago. I fell. - Previous Psychiatric Treatment Outpatient: None Inpatient: None - Previous Substance Abuse Treatment Outpatient: More than 6 mos ago - Reason for Previous Treatment Reason for Previous Treatment: Alcohol Abuse - Current Medications Current Medications: Active Medications Amlodipine Besylate (Norvasc -) 5 mg PO DAILY [facility] Last Admin: 06/24/16 09:17 Dose: 5 mg Chlordiazepoxide HCl (Librium -) 25 mg PO Q4H PRN PRN Reason: WITHDRAWAL(CONT SUBST) Stop: 06/26/16 10:44 Chlordiazepoxide HCl (Librium -) 25 mg PO [id number] [facility] Stop: 06/25/16 05:01 Last Admin: 06/24/16 11:08 Dose: 25 mg Chlordiazepoxide HCl (Librium -) 15 mg PO [id number] [facility] Stop: 06/26/16 05:01 Folic Acid (Folic Acid -) 1 mg PO DAILY [facility] Last Admin: 06/24/16 09:16 Dose: 1 mg Heparin Sodium (Porcine) (Heparin -) 5,000 unit SQ BID [facility] Last Admin: 06/24/16 09:16 Dose: 5,000 unit Dextrose/Sodium Chloride (D5-1/2ns -) 1,000 mls @ 100 mls/hr IV ASDIR [facility] Last Admin: 06/24/16 02:00 Dose: 100 mls/hr Potassium Chloride (K-Dur -) 40 meq PO DAILY [facility] Last Admin: 06/24/16 09:16 Dose: 40 meq Thiamine HCl (Vitamin B1 Injection -) 250 mg IVPB Q8H-IV [facility] Last Admin: 06/24/16 09:17 Dose: 250 mg - Allergies Allergies: Allergies Allergy/AdvReac Type Severity Reaction Status Date / Time No Known Allergies Allergy Verified 06/23/16 02:01 - Current Living Status Usual Living Arrangement: Alone - Current Mental Status Evaluation Appearance: Disheveled Attitude: Cooperative - Affect Affect: Constrictive Appropriateness: Appropriate to Content - Mood Mood: Euthymic - Speech/Language Expressive: Coherent - Psychomotor Activity Psychomotor Activity: Normal - Thought Process Thought Process: Intact - Thought Content Hallucinations: Absent Delusions: Absent - Self Perception Self Perception: No Impairment - Cognition Attention: Alert Orientation: Time Memory, Immediate Recall: Intact Memory, Remote: Intact - Concentration Serial Sevens Intact: Yes Simple Calculations Intact: Yes - Abstraction Proverb Interpretation: Intact Judgement: Intact - Impulse Control Impulse Control: Minimally Impaired - Suicidal Ideation Suicidal Ideation: No - Homicidal Ideation Homicidal Ideation: No Assessment/Plan No psych m,eds needed.
--- NOTE | 2016-06-24 22:37 | PN ---
Progress Note, Physician - Current Medication List Current Medications: Active Medications Amlodipine Besylate (Norvasc -) 5 mg PO DAILY [facility] Last Admin: 06/24/16 09:17 Dose: 5 mg Chlordiazepoxide HCl (Librium -) 25 mg PO Q4H PRN PRN Reason: WITHDRAWAL(CONT SUBST) Stop: 06/26/16 10:44 Chlordiazepoxide HCl (Librium -) 25 mg PO [id number] [facility] Stop: 06/25/16 05:01 Last Admin: 06/24/16 22:10 Dose: 25 mg Chlordiazepoxide HCl (Librium -) 15 mg PO [id number] [facility] Stop: 06/26/16 05:01 Folic Acid (Folic Acid -) 1 mg PO DAILY [facility] Last Admin: 06/24/16 09:16 Dose: 1 mg Heparin Sodium (Porcine) (Heparin -) 5,000 unit SQ BID [facility] Last Admin: 06/24/16 22:08 Dose: 5,000 unit Dextrose/Sodium Chloride (D5-1/2ns -) 1,000 mls @ 100 mls/hr IV ASDIR [facility] Last Admin: 06/24/16 18:32 Dose: 100 mls/hr Lactulose (Cephulac (Oral Use)) 20 gm PO DAILY [facility] Potassium Chloride (K-Dur -) 40 meq PO DAILY [facility] Last Admin: 06/24/16 09:16 Dose: 40 meq Thiamine HCl (Vitamin B1 Injection -) 250 mg IVPB Q8H-IV [facility] Last Admin: 06/24/16 18:41 Dose: 250 mg - Objective Vital Signs: Vital Signs Temperature 98.8 F 06/24/16 19:09 Pulse Rate 81 06/24/16 19:09 Respiratory Rate 18 06/24/16 19:09 Blood Pressure 131/89 06/24/16 19:09 O2 Sat by Pulse Oximetry (%) 97 06/24/16 09:00 Labs: CBC, BMP 06/24/16 05:35 06/24/16 05:35 INR, PTT INR 1.21 (0.82-1.09) H D 06/22/16 19:57
[2016-06-25] MEDS: DEXTROSE 5%-0.45% SALINE 1,000 ML IV SCH ×2 (02:40→22:33)
[2016-06-25] MEDS: THIAMINE HCL 200 MG/2 ML VIAL IVPB SCH ×3 (02:41→18:21)
[2016-06-25] MEDS: chlordiazePOXIDE HCL 25 MG CAPSULE PO SCH (06:17)
[2016-06-25] MEDS ORDERED: PT OWN MED DRAWER 7, Y5N ONE ×2 (09:41→17:38)
[2016-06-25] MEDS: FOLIC ACID 1 MG TABLET (FP) PO SCH (09:43)
[2016-06-25] MEDS: POTASSIUM CHLORIDE TABS 20 MEQ TABLET.ER (FP) PO SCH (09:43)
[2016-06-25] MEDS: LACTULOSE 20 GM/30 ML UDC (FOR ORAL USE ONLY) PO SCH (09:43)
[2016-06-25] MEDS: amLODIPine BESYLATE 5 MG TABLET (FP) PO SCH (09:43)
[2016-06-25] MEDS: HEPARIN NA (PORCINE) 5,000 UNITS/ML 1ML VIAL SQ SCH ×2 (09:43→22:32)
[2016-06-25] MEDS: chlordiazePOXIDE 5 MG CAPSULE PO SCH ×3 (11:58→22:32)
--- NOTE | 2016-06-25 15:17 | PN ---
Progress Note, Physician - Current Medication List Current Medications: Active Medications Amlodipine Besylate (Norvasc -) 5 mg PO DAILY [facility] Last Admin: 06/25/16 09:43 Dose: 5 mg Chlordiazepoxide HCl (Librium -) 25 mg PO Q4H PRN PRN Reason: WITHDRAWAL(CONT SUBST) Stop: 06/26/16 10:44 Chlordiazepoxide HCl (Librium -) 15 mg PO [id number] [facility] Stop: 06/26/16 05:01 Last Admin: 06/25/16 11:58 Dose: 15 mg Folic Acid (Folic Acid -) 1 mg PO DAILY [facility] Last Admin: 06/25/16 09:43 Dose: 1 mg Heparin Sodium (Porcine) (Heparin -) 5,000 unit SQ BID [facility] Last Admin: 06/25/16 09:43 Dose: 5,000 unit Dextrose/Sodium Chloride (D5-1/2ns -) 1,000 mls @ 100 mls/hr IV ASDIR [facility] Last Admin: 06/25/16 02:40 Dose: 100 mls/hr Lactulose (Cephulac (Oral Use)) 20 gm PO DAILY [facility] Last Admin: 06/25/16 09:43 Dose: 20 gm Potassium Chloride (K-Dur -) 40 meq PO DAILY [facility] Last Admin: 06/25/16 09:43 Dose: 40 meq Thiamine HCl (Vitamin B1 Injection -) 250 mg IVPB Q8H-IV [facility] Last Admin: 06/25/16 09:50 Dose: 250 mg - Objective Vital Signs: Vital Signs Temperature 98.1 F 06/25/16 13:50 Pulse Rate 88 06/25/16 13:50 Respiratory Rate 20 06/25/16 13:50 Blood Pressure 127/89 06/25/16 13:50 O2 Sat by Pulse Oximetry (%) 97 06/24/16 21:00 Labs: CBC, BMP 06/24/16 05:35 06/24/16 05:35 INR, PTT INR 1.21 (0.82-1.09) H D 06/22/16 19:57
[2016-06-25] MEDS: KCL 10 MEQ IVPB 100 ML IVPB SCH ×3 (15:39→23:58)
[2016-06-25] MEDS ORDERED: KCL 10 MEQ IVPB 100 ML IVPB SCH (22:30)
[2016-06-26] MEDS: DEXTROSE 5%-0.45% SALINE 1,000 ML IV SCH ×2 (01:48→14:02)
[2016-06-26] MEDS: THIAMINE HCL 200 MG/2 ML VIAL IVPB SCH ×3 (02:36→18:11)
[2016-06-26] MEDS: chlordiazePOXIDE 5 MG CAPSULE PO SCH (05:25)
[2016-06-26] MEDS ORDERED: PT OWN MED DRAWER 7, Y5N ONE ×3 (08:59→18:09)
[2016-06-26] MEDS: LACTULOSE 20 GM/30 ML UDC (FOR ORAL USE ONLY) PO SCH (09:04)
[2016-06-26] MEDS: FOLIC ACID 1 MG TABLET (FP) PO SCH (09:05)
[2016-06-26] MEDS: amLODIPine BESYLATE 5 MG TABLET (FP) PO SCH (09:05)
[2016-06-26] MEDS: HEPARIN NA (PORCINE) 5,000 UNITS/ML 1ML VIAL SQ SCH ×2 (09:05→22:00)
[2016-06-26] MEDS: POTASSIUM CHLORIDE TABS 20 MEQ TABLET.ER (FP) PO SCH (09:05)
--- NOTE | 2016-06-26 22:42 | PN ---
Progress Note, Physician History of Present Illness: No new complaints Family was in the room and pt's condition reviewed w/ pt's daughter - Current Medication List Current Medications: Active Medications Amlodipine Besylate (Norvasc -) 5 mg PO DAILY [facility] Last Admin: 06/26/16 09:05 Dose: 5 mg Folic Acid (Folic Acid -) 1 mg PO DAILY [facility] Last Admin: 06/26/16 09:05 Dose: 1 mg Heparin Sodium (Porcine) (Heparin -) 5,000 unit SQ BID [facility] Last Admin: 06/26/16 22:00 Dose: 5,000 unit Dextrose/Sodium Chloride (D5-1/2ns -) 1,000 mls @ 100 mls/hr IV ASDIR [facility] Last Admin: 06/26/16 14:02 Dose: 100 mls/hr Lactulose (Cephulac (Oral Use)) 20 gm PO DAILY [facility] Last Admin: 06/26/16 09:04 Dose: 20 gm Potassium Chloride (K-Dur -) 40 meq PO DAILY [facility] Last Admin: 06/26/16 09:05 Dose: 40 meq Thiamine HCl (Vitamin B1 Injection -) 250 mg IVPB Q8H-IV [facility] Last Admin: 06/26/16 18:11 Dose: 250 mg - Objective Vital Signs: Vital Signs Temperature 98.5 F 06/26/16 18:00 Pulse Rate 89 06/26/16 18:00 Respiratory Rate 20 06/26/16 21:00 Blood Pressure 134/82 06/26/16 18:00 O2 Sat by Pulse Oximetry (%) 97 06/26/16 21:00 Constitutional: Yes: Well Nourished HENT: Yes: Other ((+) laceration on lt forehead w/ sutures) Cardiovascular: Yes: WNL, Regular Rate and Rhythm Respiratory: Yes: WNL, Regular, CTA Bilaterally Gastrointestinal: Yes: WNL, Normal Bowel Sounds, Soft Labs: CBC, BMP 06/24/16 05:35 06/24/16 05:35 INR, PTT INR 1.21 (0.82-1.09) H D 06/22/16 19:57 Problem List - Problems (1) Alcohol dependence with uncomplicated withdrawal Assessment/Plan: Will dc pt home in am Long d/w pt and his daughter about need to never have etoh again Pt wants to f/u w/ [facility] Explained to them that pt needs to f/u with labs(ammonia/lft's) Code(s): F10.230 - ALCOHOL DEPENDENCE WITH WITHDRAWAL, UNCOMPLICATED (2) Facial laceration Assessment/Plan: Pt w/ 10 sutures wc was explained to pt and his daughter that sutures need to be removed in 1 week Code(s): S01.81XA - LACERATION W/O FOREIGN BODY OF OTH PART OF HEAD, INIT ENCNTR Qualifiers: Encounter type: subsequent encounter Qualified Code(s): S01.81XD - Laceration without foreign body of other part of head, subsequent encounter (3) Abnormal LFTs (liver function tests) Assessment/Plan: Due to alcohol Abstinence from etoh explained to pt and daughter Check lft's/ammonia in am Code(s): R79.89 - OTHER SPECIFIED ABNORMAL FINDINGS OF BLOOD CHEMISTRY (4) PTSD (post-traumatic stress disorder) Code(s): F43.10 - POST-TRAUMATIC STRESS DISORDER, UNSPECIFIED
[2016-06-27] MEDS ORDERED: POTASSIUM CHLORIDE TABS 20 MEQ TABLET.ER (FP) PO ONE (01:21)
[2016-06-27] MEDS ORDERED: PT OWN MED DRAWER 7, Y5N ONE (02:09)
[2016-06-27] MEDS: THIAMINE HCL 200 MG/2 ML VIAL IVPB SCH ×2 (02:10→10:42)
[2016-06-27 08:16] LABS: ALBUMIN 2.8 g/dl (3.4-5.0); ALK PHOS 419 U/L (45-117); ANION GAP 11 (8-16); BILIRUBIN,TOTAL 4.2 mg/dL (0.2-1.0); CALCIUM 9.1 mg/dL (8.5-10.1); CO2 25 mmol/L (21-32); COCKROFT - GAULT 93; CREATININE 0.9 mg/dL (0.7-1.3); GLUCOSE,RANDOM 80 mg/dL (74-106); SGOT/AST 183 U/L (15-37); SGPT/ALT 108 U/L (12-78); TOT PROT 6.9 g/dl (6.4-8.2)
[2016-06-27 09:27] LABS: MCH 36.9 pg (25.7-33.7); MCHC 32.3 g/dl (32.0-35.9); MEAN PLT VOLUME 10.8 fl (7.5-11.1); PLATELET COUNT 148 K/MM3 (134-434); RDW 17.5 % (11.9-15.9)
[2016-06-27] MEDS: FOLIC ACID 1 MG TABLET (FP) PO SCH (10:38)
[2016-06-27] MEDS: amLODIPine BESYLATE 5 MG TABLET (FP) PO SCH (10:38)
[2016-06-27] MEDS: POTASSIUM CHLORIDE TABS 20 MEQ TABLET.ER (FP) PO SCH (10:38)
[2016-06-27] MEDS: LACTULOSE 20 GM/30 ML UDC (FOR ORAL USE ONLY) PO SCH (10:41)
[2016-06-27] MEDS: HEPARIN NA (PORCINE) 5,000 UNITS/ML 1ML VIAL SQ SCH (10:41)
[2016-06-27 11:27] LABS: WHITE BLOOD COUNT 10.6 K/mm3 (4.0-10.0)
[2016-06-27 11:28] LABS: METAMYELOCYTE 2 % (0-2)
[2016-06-27 15:18] VITALS: BP 140/86; PULSE 99; TEMP 98.6
== END 2016-06-27 17:50 | disposition home or self-care (01) | DRG 53 ==
LOC: JER 19:25 → JERBED 23:03 → J4W 06-23 15:00 → J5S 06-24 12:33
PROVIDERS: ADMIT Internal Medicine; ATTEND Internal Medicine
PROC: 0HQ0XZZ Repair Scalp Skin, External Approach (ICD-10-PCS; principal; 2016-06-22)
PROC: HZ2ZZZZ Detoxification Services for Substance Abuse Treatment (ICD-10-PCS; 2016-06-22)
DX: G40.89 Other seizures (principal); S01.81XA Laceration without foreign body of other part of head, initial encounter; W18.30XA Fall on same level, unspecified, initial encounter; Y92.008 Other place in unspecified non-institutional (private) residence as the place of occurrence of the external cause; R55 Syncope and collapse; F10.239 Alcohol dependence with withdrawal, unspecified; Z72.0 Tobacco use; I10 Essential (primary) hypertension; R79.89 Other specified abnormal findings of blood chemistry; N39.0 Urinary tract infection, site not specified; K70.9 Alcoholic liver disease, unspecified
CPT/HCPCS: 36415; 70450-TC; 70486-TC; 71010-TC; 72125-TC; 74176-TC; 80053; 80307; 81003; 81015; 82140; 82150; 82550; 82553; 82607; 82746; 83605; 83690; 83735; 83880; 84100; 84153; 84425; 84484; 85025; 85610; 87040; 90732; 93005; 93010; 93306-TC; 93880-TC; 99284-25; G0009; J1644

== ENCOUNTER 2017-02-13 03:22 | Inpatient (IN) | payer OTHER ==
[2017-02-13 03:30] VITALS: BMI 25.7
[2017-02-13] MEDS ORDERED: SODIUM CHLORIDE 0.9% 1000 ML INFUS.BAG IV ONE (03:32)
[2017-02-13] MEDS ORDERED: LORazepam 2 MG/ML SDV VIAL ONE (03:33)
[2017-02-13] MEDS ORDERED: DIAZEPAM ACUDIAL 12.5-15-20 20 MG KIT PR ONE (03:38)
[2017-02-13] MEDS ORDERED: diazePAM CARPU-JECT 10 MG/2 ML DISP.SYRIN IVPUSH ONE (03:46)
[2017-02-13 03:57] LABS: BASO % 0.1 % (0-2.0); EOS % 0.3 % (0-4.5); MCH 35.4 pg (25.7-33.7); MCHC 31.9 g/dl (32.0-35.9); MEAN CELL VOLUME 110.7 fl (80-96); MEAN PLT VOLUME 11.3 fl (7.5-11.1); NEUT % 73.9 % (42.8-82.8); PLATELET COUNT 90 K/MM3 (134-434); RDW 13.9 % (11.9-15.9); WHITE BLOOD COUNT 7.9 K/mm3 (4.0-10.0)
[2017-02-13] MEDS ORDERED: diazePAM ACUDIAL 5-7.5-10 MG 1 EACH KIT RC ONE (04:00)
[2017-02-13 04:03] LABS: URINE MARIJUANA THC NEGATIVE ng/ml (CUTOFF=50)
[2017-02-13] MEDS ORDERED: RAPID SEQUENCE INTUBATION KIT NR ONE (04:14)
--- NOTE | 2017-02-13 04:27 | PDOC ---
History of Present Illness <Rach Fernandez - Last Filed: 02/13/17 05:32> <Db Patel - Last Filed: 02/13/17 05:40> - General History Source: EMS Exam Limitations: Unresponsive - History of Present Illness Initial Comments: 02/13/17 04:08 Patient is a 56 year old male etoh abuse arrived via EMS for unresponsiveness. Per EMS the were called to the home by family who found him down on the ground after hearing a thud. States family said he was seizing on arrival to the emergency room patient started having a seizure on EMS gurney. ROS unobtainable at this time due the severity of illness. GENERAL: [The patient is awake, alert, and fully oriented, in no acute distress. ] HEAD: [Normal with no signs of trauma.] EYES: [Pupils equal, round and reactive to light, sclera icteric, conjunctiva jaundiced.] ENT: [Ears normal, nares patent, oropharynx clear without exudates. Moist mucous membranes.] NECK: [Normal range of motion, supple without lymphadenopathy, JVD, or masses.] LUNGS: [Breath sounds equal, clear to auscultation bilaterally. No wheezes, and no crackles.] HEART: [tachycardia, normal S1 and S2 without murmur, rub.] ABDOMEN: [Soft, nondistended] EXTREMITIES: range of motion, no edema. No clubbing or cyanosis. No cords, erythema,] NEUROLOGICAL: [Unresponsive, actively tonoclonic seizing, occasional posturing. ] PSYCH: Not assessed SKIN: [Warm, Dry, normal turgor, no rashes or lesions noted.] 02/13/17 05:45 <Renzo Quiroz - Last Filed: 02/13/17 06:13> - General Chief Complaint: Seizure Stated Complaint: SEIZURE Time Seen by Provider: 02/13/17 03:24 Past History <Rach Fernandez - Last Filed: 02/13/17 05:32> <Db Patel - Last Filed: 02/13/17 05:40> - Past Medical History COPD: No HTN: Yes Seizures: Yes - Immunization History Immunization Up to Date: No - Suicide/Smoking/Psychosocial Hx Smoking History: Unknown if ever smoked Have you smoked in the past 12 months: No Number of Cigarettes Smoked Daily: 2 If you are a former smoker, when did you quit?: 2 years Cigars Per Day: 0 Information on smoking cessation initiated: No 'Breaking Loose' booklet given: 10/23/14 Hx Alcohol Use: Yes Drug/Substance Use Hx: No (unknown) Substance Use Type: Alcohol Hx Substance Use Treatment: No <Renzo Quiroz - Last Filed: 02/13/17 06:13> - Past Medical History Allergies/Adverse Reactions: Allergies Allergy/AdvReac Type Severity Reaction Status Date / Time No Known Allergies Allergy Verified 02/13/17 03:27 Home Medications: Ambulatory Orders Amlodipine Besylate [Norvasc -] 5 mg PO DAILY #30 tablet 06/27/16 Folic Acid - 1 mg PO DAILY #30 tablet 06/27/16 Lactulose 20 gm PO DAILY #30 ml 06/27/16 Thiamine HCl [Vitamin B1 Injection -] 250 mg IVPB Q8H-IV #30 vial 06/27/16 *Physical Exam - Vital Signs Last Vital Signs Temp Pulse Resp BP Pulse Ox 99 F 105 H 12 153/100 100 02/13/17 04:03 02/13/17 04:38 02/13/17 04:46 02/13/17 04:38 02/13/17 04:38 <Rach Fernandez - Last Filed: 02/13/17 05:32> - Vital Signs Last Vital Signs Temp Pulse Resp BP Pulse Ox 99 F 108 H 16 169/96 95 02/13/17 04:03 02/13/17 05:00 02/13/17 05:00 02/13/17 05:00 02/13/17 05:00 <Db Patel - Last Filed: 02/13/17 05:40> - Vital Signs Last Vital Signs Temp Pulse Resp BP Pulse Ox 99 F 115 H 26 H 117/89 100 02/13/17 04:03 02/13/17 04:03 02/13/17 03:27 02/13/17 04:03 02/13/17 04:03 <Renzo Quiroz - Last Filed: 02/13/17 06:13> Procedures - Intubation Time of Intubation: 16:30 Intubation Method: orotracheal Blade used: Glidescope Tube Size (Fr): 8.0 Medications: Etomidate, Succinylcholine Tube position confirmed by: Direct visualization, CO2 detector, Chest x-ray, Breath sounds Breath Sounds after Intubation: equal Intubation Complications: no complications Post Intubation Xray: Yes - Additional Procedures Additional Procedures: arterial blood draw <Db Patel - Last Filed: 02/13/17 05:40> ED Treatment Course - LABORATORY CBC & Chemistry Diagram: 02/13/17 03:41 02/13/17 03:41 - ADDITIONAL ORDERS Additional order review: Laboratory Results 02/13/17 02/13/17 02/13/17 03:51 03:41 03:41 Sodium Potassium Chloride Carbon Dioxide Anion Gap BUN Creatinine Creat Clearance w eGFR Random Glucose Calcium Total Bilirubin AST ALT Alkaline Phosphatase Total Protein Albumin Lipase Stool Occult Blood Negative Opiates Screen Negative Methadone Screen Negative Barbiturate Screen Negative Phencyclidine Screen Negative Ur Amphetamines Screen Negative MDMA (Ecstasy) Screen Negative Benzodiazepines Screen Negative Cocaine Screen Negative U Marijuana (THC) Screen Negative Alcohol, Quantitative < 5.0 02/13/17 03:41 Sodium 133 L Potassium 3.0 L Chloride 90 L D Carbon Dioxide 26 Anion Gap 17 H BUN 15 D Creatinine 1.4 H D Creat Clearance w eGFR 52.81 Random Glucose 178 H D Calcium 9.3 Total Bilirubin 5.5 H D AST 495 H D ALT 204 H D Alkaline Phosphatase 384 H Total Protein 7.6 Albumin 3.3 L Lipase 554 H Stool Occult Blood Opiates Screen Methadone Screen Barbiturate Screen Phencyclidine Screen Ur Amphetamines Screen MDMA (Ecstasy) Screen Benzodiazepines Screen Cocaine Screen U Marijuana (THC) Screen Alcohol, Quantitative 02/13/17 03:41 RBC 3.19 L MCV 110.7 H MCHC 31.9 L RDW 13.9 D MPV 11.3 H Neutrophils % 73.9 Lymphocytes % 17.9 Monocytes % 7.8 Eosinophils % 0.3 Basophils % 0.1 - RADIOLOGY Radiology Studies Ordered: Category Date Time Status CERVICAL SPINE CT W/O CONTR [CT] Stat CT Scan 02/13/17 03:[address] WITHOUT CONTRAST [CT] Stat CT Scan 02/13/17 03:51 Taken CHEST X-RAY PORTABLE* [RAD] Stat Radiology 02/13/17 04:11 Taken - Medications Given in the ED: ED Medications Discontinued Medications Generic Name Dose Route Start Last Admin Trade Name Freq PRN Reason Stop Dose Admin Diazepam 10 mg 02/13/17 03:46 02/13/17 03:55 Valium Injection - IVPUSH 02/13/17 03:47 10 mg ONCE ONE Administration Diazepam 10 mg 02/13/17 04:00 02/13/17 04:47 Diastat Rectal Gel - RC 02/13/17 04:01 10 mg ONCE ONE Administration Etomidate 20 mg 02/13/17 04:45 02/13/17 04:26 Amidate - IVPUSH 02/13/17 04:46 20 mg NOW ONE Administration Lorazepam 2 mg 02/13/17 03:32 02/13/17 03:55 Ativan Injection - IVPUSH 02/13/17 03:33 2 mg ONCE ONE Administration Lorazepam 2 mg 02/13/17 03:34 02/13/17 03:55 Ativan Injection - IVPUSH 02/13/17 03:35 2 mg ONCE ONE Administration Lorazepam 4 mg 02/13/17 03:45 02/13/17 03:55 Ativan Injection - IVPUSH 02/13/17 03:46 4 mg ONCE ONE Administration Magnesium Sulfate 2 gm 02/13/17 04:38 02/13/17 04:47 Magnesium Sulfate IVPB 02/13/17 04:39 2 gm ONCE ONE Administration Rocuronium [place] 100 mg 02/13/17 04:45 02/13/17 04:37 Zemuron - 1.2 mg/kg (100 mg) 02/13/17 04:46 100 mg IVPUSH Administration ONCE ONE Sodium Chloride 1,000 ml 02/13/17 03:32 02/13/17 03:54 Normal Saline - IV 02/13/17 03:33 1,000 ml ONCE ONE Administration Succinylcholine Chloride 100 mg 02/13/17 04:45 02/13/17 04:48 Quelicin - IVPUSH 02/13/17 04:46 100 mg ONCE ONE Administration <Rach Fernandez - Last Filed: 02/13/17 05:32> - LABORATORY CBC & Chemistry Diagram: 02/13/17 03:41 02/13/17 03:41 - ADDITIONAL ORDERS Additional order review: Laboratory Results 02/13/17 02/13/17 02/13/17 03:51 03:41 03:41 Sodium Potassium Chloride Carbon Dioxide Anion Gap BUN Creatinine Creat Clearance w eGFR Random Glucose Calcium Total Bilirubin AST ALT Alkaline Phosphatase Total Protein Albumin Lipase Stool Occult Blood Negative Opiates Screen Negative Methadone Screen Negative Barbiturate Screen Negative Phencyclidine Screen Negative Ur Amphetamines Screen Negative MDMA (Ecstasy) Screen Negative Benzodiazepines Screen Negative Cocaine Screen Negative U Marijuana (THC) Screen Negative Alcohol, Quantitative < 5.0 02/13/17 03:41 Sodium 133 L Potassium 3.0 L Chloride 90 L D Carbon Dioxide 26 Anion Gap 17 H BUN 15 D Creatinine 1.4 H D Creat Clearance w eGFR 52.81 Random Glucose 178 H D Calcium 9.3 Total Bilirubin 5.5 H D AST 495 H D ALT 204 H D Alkaline Phosphatase 384 H Total Protein 7.6 Albumin 3.3 L Lipase 554 H Stool Occult Blood Opiates Screen Methadone Screen Barbiturate Screen Phencyclidine Screen Ur Amphetamines Screen MDMA (Ecstasy) Screen Benzodiazepines Screen Cocaine Screen U Marijuana (THC) Screen Alcohol, Quantitative 02/13/17 03:41 RBC 3.19 L MCV 110.7 H MCHC 31.9 L RDW 13.9 D MPV 11.3 H Neutrophils % 73.9 Lymphocytes % 17.9 Monocytes % 7.8 Eosinophils % 0.3 Basophils % 0.1 - Medications Given in the ED: ED Medications Discontinued Medications Generic Name Dose Route Start Last Admin Trade Name Freq PRN Reason Stop Dose Admin Diazepam 10 mg 02/13/17 03:46 02/13/17 03:55 Valium Injection - IVPUSH 02/13/17 03:47 10 mg ONCE ONE Administration Diazepam 10 mg 02/13/17 04:00 02/13/17 04:47 Diastat Rectal Gel - RC 02/13/17 04:01 10 mg ONCE ONE Administration Etomidate 20 mg 02/13/17 04:45 02/13/17 04:26 Amidate - IVPUSH 02/13/17 04:46 20 mg NOW ONE Administration Lorazepam 2 mg 02/13/17 03:32 02/13/17 03:55 Ativan Injection - IVPUSH 02/13/17 03:33 2 mg ONCE ONE Administration Lorazepam 2 mg 02/13/17 03:34 02/13/17 03:55 Ativan Injection - IVPUSH 02/13/17 03:35 2 mg ONCE ONE Administration Lorazepam 4 mg 02/13/17 03:45 02/13/17 03:55 Ativan Injection - IVPUSH 02/13/17 03:46 4 mg ONCE ONE Administration Lorazepam 4 mg 02/13/17 05:04 02/13/17 05:06 Ativan Injection - IVPUSH 02/13/17 05:05 4 mg ONCE ONE Administration Magnesium Sulfate 2 gm 02/13/17 04:38 02/13/17 04:47 Magnesium Sulfate IVPB 02/13/17 04:39 2 gm ONCE ONE Administration Rocuronium [place] 100 mg 02/13/17 04:45 02/13/17 04:37 Zemuron - 1.2 mg/kg (100 mg) 02/13/17 04:46 100 mg IVPUSH Administration ONCE ONE Sodium Chloride 1,000 ml 02/13/17 03:32 02/13/17 03:54 Normal Saline - IV 02/13/17 03:33 1,000 ml ONCE ONE Administration Succinylcholine Chloride 100 mg 02/13/17 04:45 02/13/17 04:48 Quelicin - IVPUSH 02/13/17 04:46 100 mg ONCE ONE Administration <Db Patel - Last Filed: 02/13/17 05:40> - LABORATORY CBC & Chemistry Diagram: 02/13/17 03:41 02/13/17 03:41 - ADDITIONAL ORDERS Additional order review: Laboratory Results 02/13/17 02/13/17 03:51 03:41 Stool Occult Blood Negative Opiates Screen Negative Methadone Screen Negative Barbiturate Screen Negative Phencyclidine Screen Negative Ur Amphetamines Screen Negative MDMA (Ecstasy) Screen Negative Benzodiazepines Screen Negative Cocaine Screen Negative U Marijuana (THC) Screen Negative 02/13/17 03:41 RBC 3.19 L MCV 110.7 H MCHC 31.9 L RDW 13.9 D MPV 11.3 H Neutrophils % 73.9 Lymphocytes % 17.9 Monocytes % 7.8 Eosinophils % 0.3 Basophils % 0.1 - RADIOLOGY Radiology Studies Ordered: Category Date Time Status HEAD CT WITHOUT CONTRAST [CT] Stat CT Scan 02/13/17 03:36 Ordered - Medications Given in the ED: ED Medications Discontinued Medications Generic Name Dose Route Start Last Admin Trade Name Freq PRN Reason Stop Dose Admin Diazepam 10 mg 02/13/17 03:46 02/13/17 03:55 Valium Injection - IVPUSH 02/13/17 03:47 10 mg ONCE ONE Administration Lorazepam 2 mg 02/13/17 03:32 02/13/17 03:55 Ativan Injection - IVPUSH 02/13/17 03:33 2 mg ONCE ONE Administration Lorazepam 2 mg 02/13/17 03:34 02/13/17 03:55 Ativan Injection - IVPUSH 02/13/17 03:35 2 mg ONCE ONE Administration Lorazepam 4 mg 02/13/17 03:45 02/13/17 03:55 Ativan Injection - IVPUSH 02/13/17 03:46 4 mg ONCE ONE Administration Sodium Chloride 1,000 ml 02/13/17 03:32 02/13/17 03:54 Normal Saline - IV 02/13/17 03:33 1,000 ml ONCE ONE Administration <Renzo Quiroz - Last Filed: 02/13/17 06:13> Medical Decision Making - Medical Decision Making 02/13/17 04:29 Patient is a 56 year old male etoh abuse arrived via EMS for unresponsiveness. Patient arrives even seizing, he was given Ativan 2mg IV stat with no abatement of seizure. A repeated dose of IV Ativan 2 mg given then Diastat 10 mg per rectum, then Ativan 4 mg IV. Patient continues to have seizures. Shields placed by nurse, Son-in-law Mr. Vincent now arrives in the ER and information obtained from daughter Anette Lara @[phone]. States that patient has a history of hypertension, liver damage, seizure, alcohol abuse. States that a few months ago his ammonia level was elevated and he was told to stop the drinking so his liver would not be further damaged. She does not know if he continues to drink. He was in detox about 8 months ago. She states that tonight her father called her because he had some complaints of congestion. So he came to her house for some cough medicine. After medication patient went to bed then soon after got up to go to the bathroom. They heard a noise in the bathroom and responded, found the patient sitting on the toilet, stiff and not responding. They got him to the living room, laid him on the floor at which time he had a seizure. EMS was called. They deny any head injury. Transported to CT scan on monitor. After CT Scan patient was intubated by Dr. Patel for continued seizure and to protect the airway. A shunt was given Ativan 2 mg IV for sedation postintubation. The patient chest x-ray shows tube at the level of the crystal. EKG sinus tach at 106, normal axis, LVH, no ST-T wave changes Laboratory Tests 02/13/17 02/13/17 02/13/17 03:41 03:41 03:41 WBC 7.9 Hgb 11.3 L Hct 35.3 L Plt Count 90 L D ABG pH ABG pCO2 at Pt Temp ABG pO2 at Pt Temp ABG HCO3 ABG O2 Sat (Measured) ABG O2 Content ABG Base Excess Sodium 133 L Potassium 3.0 L Chloride 90 L D Carbon Dioxide 26 Anion Gap 17 H BUN 15 D Creatinine 1.4 H D Random Glucose 178 H D Total Bilirubin 5.5 H D AST 495 H D ALT 204 H D Alkaline Phosphatase 384 H Ammonia Creatine Kinase CK-MB (CK-2) Troponin I Albumin 3.3 L Lipase 554 H Alcohol, Quantitative < 5.0 02/13/17 02/13/17 02/13/17 03:41 04:52 05:30 WBC Hgb Hct Plt Count ABG pH 7.37 ABG pCO2 at Pt Temp 51.3 H ABG pO2 at Pt Temp 59.4 L ABG HCO3 29.2 H ABG O2 Sat (Measured) 88.2 L ABG O2 Content 13.8 L ABG Base Excess 3.6 H Sodium Potassium Chloride Carbon Dioxide Anion Gap BUN Creatinine Random Glucose Total Bilirubin AST ALT Alkaline Phosphatase Ammonia 58.29 H Creatine Kinase 1826 H CK-MB (CK-2) 5.693 H Troponin I < 0.02 Albumin Lipase Alcohol, Quantitative Patient was given potassium 10 meq 1 with MagSulfate 2 gm IM in the ED CT head and C-spine are negative for any acute injury ICU was contacted and spoke with ICU [facility] and will accept to the unit Dr. Neri contacted and will accept for admission. 02/13/17 05:51 Given 20 mg IVP propofol for sedation. <Renzo Quiroz - Last Filed: 02/13/17 06:13> *DC/Admit/Observation/Transfer - Discharge Dispostion Admit: Yes <Rach Fernandez - Last Filed: 02/13/17 05:32> <Db Patel - Last Filed: 02/13/17 05:40> <GabriellaRenzo - Last Filed: 02/13/17 06:13> Diagnosis at time of Disposition: Dehydration, Hypokalemia, Alcoholic liver disease, unspecified, Hepatitis, Seizure Alcohol withdrawal seizure Qualifiers: Complication of substance-induced condition: with unspecified complication Qualified Code(s): F10.239 - Alcohol dependence with withdrawal, unspecified Respiratory failure Qualifiers: Chronicity: unspecified Respiratory failure complication: unspecified whether with hypoxia or hypercapnia Qualified Code(s): J96.90 - Respiratory failure, unspecified, unspecified whether with hypoxia or hypercapnia - Discharge Dispostion Condition at time of disposition: Critical
[2017-02-13 04:31] LABS: ALBUMIN 3.3 g/dl (3.4-5.0); ALK PHOS 384 U/L (45-117); ANION GAP 17 (8-16); BILIRUBIN,TOTAL 5.5 mg/dL (0.2-1.0); CALCIUM 9.3 mg/dL (8.5-10.1); CO2 26 mmol/L (21-32); CREATININE 1.4 mg/dL (0.7-1.3); GLUCOSE,RANDOM 178 mg/dL (74-106); SGPT/ALT 204 U/L (12-78); TOT PROT 7.6 g/dl (6.4-8.2)
[2017-02-13 04:32] LABS: SGOT/AST 495 U/L (15-37)
[2017-02-13] MEDS ORDERED: MAGNESIUM SULF 50% (8.12 MEQ/2 ML-1 GM VIAL) IVPB ONE ×2 (04:38→18:44)
[2017-02-13] MEDS ORDERED: MAGNESIUM SULF 50% (8.12 MEQ/2 ML-1 GM VIAL) ONE (04:40)
[2017-02-13] MEDS ORDERED: SUCCINYLCHOLINE CHLORIDE 200 MG/10 ML VIAL IVPUSH ONE (04:45)
[2017-02-13] MEDS ORDERED: ETOMIDATE 40 MG/20 ML VIAL IVPUSH ONE (04:45)
[2017-02-13] MEDS ORDERED: ROCURONIUM BROMIDE 50 MG/5 ML VIAL IVPUSH ONE (04:45)
[2017-02-13 05:05] LABS: URINE APPEARANCE SLCLOUDY; URINE BLOOD 3+ (NEGATIVE); URINE GLUCOSE (UA) 1+ (NEGATIVE); URINE KETONE NEGATIVE (NEGATIVE); URINE LEUK ESTERASE NEGATIVE (NEGATIVE); URINE NITRITE NEGATIVE (NEGATIVE); URINE UROBILINOGEN 4.0 E.U/dl mg/dL (0.2-1.0)
[2017-02-13] MEDS: KCL 10 MEQ IVPB 10 MEQ/100 ML INFUS.BAG IVPB SCH ×6 (05:06→23:30)
--- NOTE | 2017-02-13 05:08 | PDOC ---
*Physical Exam - Vital Signs Last Vital Signs Temp Pulse Resp BP Pulse Ox 99 F 108 H 16 169/96 95 02/13/17 04:03 02/13/17 05:00 02/13/17 05:00 02/13/17 05:00 02/13/17 05:00 ED Treatment Course - LABORATORY CBC & Chemistry Diagram: 02/13/17 03:41 02/13/17 03:41 - ADDITIONAL ORDERS Additional order review: Laboratory Results 02/13/17 02/13/17 02/13/17 03:51 03:41 03:41 Sodium Potassium Chloride Carbon Dioxide Anion Gap BUN Creatinine Creat Clearance w eGFR Random Glucose Calcium Total Bilirubin AST ALT Alkaline Phosphatase Total Protein Albumin Lipase Stool Occult Blood Negative Opiates Screen Negative Methadone Screen Negative Barbiturate Screen Negative Phencyclidine Screen Negative Ur Amphetamines Screen Negative MDMA (Ecstasy) Screen Negative Benzodiazepines Screen Negative Cocaine Screen Negative U Marijuana (THC) Screen Negative Alcohol, Quantitative < 5.0 02/13/17 03:41 Sodium 133 L Potassium 3.0 L Chloride 90 L D Carbon Dioxide 26 Anion Gap 17 H BUN 15 D Creatinine 1.4 H D Creat Clearance w eGFR 52.81 Random Glucose 178 H D Calcium 9.3 Total Bilirubin 5.5 H D AST 495 H D ALT 204 H D Alkaline Phosphatase 384 H Total Protein 7.6 Albumin 3.3 L Lipase 554 H Stool Occult Blood Opiates Screen Methadone Screen Barbiturate Screen Phencyclidine Screen Ur Amphetamines Screen MDMA (Ecstasy) Screen Benzodiazepines Screen Cocaine Screen U Marijuana (THC) Screen Alcohol, Quantitative 02/13/17 03:41 RBC 3.19 L MCV 110.7 H MCHC 31.9 L RDW 13.9 D MPV 11.3 H Neutrophils % 73.9 Lymphocytes % 17.9 Monocytes % 7.8 Eosinophils % 0.3 Basophils % 0.1 - RADIOLOGY Radiology Studies Ordered: Category Date Time Status CERVICAL SPINE CT W/O CONTR [CT] Stat CT Scan 02/13/17 03:[address] WITHOUT CONTRAST [CT] Stat CT Scan 02/13/17 03:51 Taken CHEST X-RAY PORTABLE* [RAD] Stat Radiology 02/13/17 04:11 Taken - Medications Given in the ED: ED Medications Discontinued Medications Generic Name Dose Route Start Last Admin Trade Name Freq PRN Reason Stop Dose Admin Diazepam 10 mg 02/13/17 03:46 02/13/17 03:55 Valium Injection - IVPUSH 02/13/17 03:47 10 mg ONCE ONE Administration Diazepam 10 mg 02/13/17 04:00 02/13/17 04:47 Diastat Rectal Gel - RC 02/13/17 04:01 10 mg ONCE ONE Administration Etomidate 20 mg 02/13/17 04:45 02/13/17 04:26 Amidate - IVPUSH 02/13/17 04:46 20 mg NOW ONE Administration Lorazepam 2 mg 02/13/17 03:32 02/13/17 03:55 Ativan Injection - IVPUSH 02/13/17 03:33 2 mg ONCE ONE Administration Lorazepam 2 mg 02/13/17 03:34 02/13/17 03:55 Ativan Injection - IVPUSH 02/13/17 03:35 2 mg ONCE ONE Administration Lorazepam 4 mg 02/13/17 03:45 02/13/17 03:55 Ativan Injection - IVPUSH 02/13/17 03:46 4 mg ONCE ONE Administration Lorazepam 4 mg 02/13/17 05:04 02/13/17 05:06 Ativan Injection - IVPUSH 02/13/17 05:05 4 mg ONCE ONE Administration Magnesium Sulfate 2 gm 02/13/17 04:38 02/13/17 04:47 Magnesium Sulfate IVPB 02/13/17 04:39 2 gm ONCE ONE Administration Rocuronium [place] 100 mg 02/13/17 04:45 02/13/17 04:37 Zemuron - 1.2 mg/kg (100 mg) 02/13/17 04:46 100 mg IVPUSH Administration ONCE ONE Sodium Chloride 1,000 ml 02/13/17 03:32 02/13/17 03:54 Normal Saline - IV 02/13/17 03:33 1,000 ml ONCE ONE Administration Succinylcholine Chloride 100 mg 02/13/17 04:45 02/13/17 04:48 Quelicin - IVPUSH 02/13/17 04:46 100 mg ONCE ONE Administration Medical Decision Making - Medical Decision Making 02/13/17 05:10 Patient Name: SIENA KILGORE THIS IS A PRELIMINARY REPORT FROM [facility] Exam: non contrast CT of the brain Images: [id number] Date of service: 2017-02-13 04:03:04 Comparison: None Indication: Seizure concern Impression: 1. No definitive evidence of acute intracranial hemorrhage, intracranial mass effect, hydrocephalus, or depressed calvarial fracture is appreciated. 2. The visualized portions of the paranasal sinuses are clear. If symptoms or concern persists, correlation with follow up CT or MRI is advised , at your clinical discretion. THIS DOCUMENT HAS BEEN ELECTRONICALLY SIGNED 02/13/17 05:14 Patient Name: SIENA KILGORE THIS IS A PRELIMINARY REPORT FROM [facility] Exam: CT of the cervical spine without contrast Technique: Thin contiguous axial images through the cervical vertebra were obtained without use of contrast. Coronal and sagittal reconstructed images were generated. Number of images:[id number] Indication: Seizure Date of service: 2017-02-13 04:00:27 Comparison:None Impression: 1. There is no definitive evidence of acute compression fracture or subluxation seen. 2. There is multilevel multi-factorial spondylosis If concern or symptomatology persists, correlation with MRI is advised. THIS DOCUMENT HAS BEEN ELECTRONICALLY SIGNED *DC/Admit/Observation/Transfer Diagnosis at time of Disposition: Alcohol withdrawal seizure, Dehydration, Hypokalemia, Alcoholic liver disease, unspecified, Hepatitis, Seizure, Respiratory failure - Discharge Dispostion Condition at time of disposition: Critical - Referrals Referrals: Bharathi Fitzpatrick MD [Primary Care Provider] - - Patient Instructions - Post Discharge Activity
[2017-02-13 05:09] LABS: URINE COLOR YELLOW; URINE PROTEIN 1+ (NEGATIVE)
[2017-02-13 05:10] LABS: CALCIUM OXALATE CRYSTALS MODERATE /hpf (NONE SEEN); URINE BACTERIA RARE /hpf (NONE SEEN); URINE MUCUS RARE; URINE RBC 68 /hpf (0-3); URINE WBC 7 /hpf (3-5)
[2017-02-13 05:23] LABS: TROPONIN I < 0.02 ng/ml (0.00-0.05)
[2017-02-13 05:24] LABS: CPK 1826 IU/L (39-308)
[2017-02-13 05:30] LABS: ANISOCYTOSIS 1+; MACROCYTOSIS 2+
[2017-02-13 05:41] LABS: ARTERIAL BLD GAS O2 SATURATION 88.2 % (90-98.9); ARTERIAL BLOOD GAS BASE EXCESS 3.6 meq/l (-2-2); ARTERIAL BLOOD GAS HCO3 29.2 meq/L (22-26); ARTERIAL BLOOD GAS PO2 59.4 mmHg (80-100); ARTERIAL BLOOD GAS pH 7.37 (7.35-7.45)
[2017-02-13 05:42] LABS: ART PUNCT SITE LEFT RADIAL; PT. ON O2? YES
[2017-02-13 05:43] LABS: LPM/O2% 50; TYPE OF O2 VENTILATOR
[2017-02-13] MEDS ORDERED: PROPOFOL 200 MG/20 ML VIAL IVPUSH ONE (05:48)
--- NOTE | 2017-02-13 06:00 | CONSULT ---
Consult Consult Specialty:: Pulm Critical Care Referred by:: Malika Neri Reason for Consultation:: Seizure - History of Present Illness Chief Complaint: Seizure History of Present Illness: This is a 56 yo male with h/o HTN (on norvasc at home) and ETOH abuse (last drink sometime this week) w/ likely liver cirrhosis. Chart review shows multiple admissions for ETOH WD in the past and was in a detox program 6 months ago. As per family, pt had recent phlegm congestion in throat and visited daughter for OTC "throat medication for phlegm". FAmily noted that he was SOB, diaphoretic and shaky but normally responsive. Around 2 AM, pt was found slumped to the side on toilet and unresponsive by family. They placed him on the floor when he went into seizure-like activity and EMS called. No obvious head or neck trauma. BIBEMS to [facility] ED where he was found to have continuous tonic- clonic like seizure activity and was given multiple pushes of Ativan totaling in 10mg and Valium total 10mg (valium SC was given before establishing IV access ). Preliminary labs were remarkable for k= 3.0, cl=90, Na= 130. Liver enzymes and lipase elevated. Received KCl IV repletion, MgSulfate IV repletion, NS 1L IVF. He was orally intubated with RSI for airway protection and shortly transferred to ICU for further management where he was started on propofol gtt and maintained on Vent settings: A/c rate12/ TV 450/ Peep 5/ fio2 50%. 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 Cardio/Vascular: Yes: HTN Hepatobiliary: Yes: Cirrhosis - Past Surgical History Past Surgical History: Yes: None - Alcohol/Substance Use Hx Alcohol Use: Yes History of Substance Use: reports: None (denies) - Smoking History Smoking history: Unknown if ever smoked Have you smoked in the past 12 months: No Aproximately how many cigarettes per day: 2 If you are a former smoker, when did you quit?: 2 years - Social History Usual Living Arrangement: Alone ADL: Independent (, normally seen at [facility] Home Medications - Allergies Allergies/Adverse Reactions: Allergies Allergy/AdvReac Type Severity Reaction Status Date / Time No Known Allergies Allergy Verified 02/13/17 03:27 - Home Medications Home Medications: Ambulatory Orders Amlodipine Besylate [Norvasc -] 5 mg PO DAILY #30 tablet 06/27/16 Folic Acid - 1 mg PO DAILY #30 tablet 06/27/16 Lactulose 20 gm PO DAILY #30 ml 06/27/16 Thiamine HCl [Vitamin B1 Injection -] 250 mg IVPB Q8H-IV #30 vial 06/27/16 Family Disease History - Family Disease History Family History: Unable to Obtain Review of Systems - Review of Systems Constitutional: reports: Diaphoresis Eyes: reports: Other (icteric) HENT: reports: Other (Throat congestion/ phlegm recently). denies: Difficult Swallowing Neck: reports: No Symptoms Cardiovascular: reports: No Symptoms Gastrointestinal: reports: No Symptoms Genitourinary: reports: No Symptoms Breasts: reports: No Symptoms Reported Musculoskeletal: reports: No Symptoms Integumentary: reports: No Symptoms Neurological: reports: Tremors, Weakness Endocrine: reports: No Symptoms Hematology/Lymphatic: reports: No Symptoms Psychiatric: reports: Other (anxious at times, seeks daughter when he feels anxious) Pain Intensity: 0 Physical Exam Vital Signs: Vital Signs Temperature 99 F 02/13/17 04:03 Pulse Rate 108 H 02/13/17 05:00 Respiratory Rate 16 02/13/17 05:00 Blood Pressure 169/96 02/13/17 05:00 O2 Sat by Pulse Oximetry (%) 95 02/13/17 05:00 Constitutional: Yes: Well Nourished, No Distress Eyes: Yes: PERRL, Sclera Icterus, Other (perioorbital and sceral edema) HENT: Yes: WNL, Atraumatic, Normocephalic. No: Drooling, Epistaxis Neck: Yes: WNL, Supple, Trachea Midline Cardiovascular: Yes: WNL, Regular Rate and Rhythm, Tachycardia. No: Gallop, Murmur, S3, S4 Respiratory: Yes: WNL, Regular, Cough, Intubated, Rhonchi Gastrointestinal: Yes: WNL, Normal Bowel Sounds, Soft. No: Tenderness, Rebound ...Rectal Exam: Yes: WNL Renal/: Yes: WNL, Ignacio Present. No: Bladder Distention, Hematuria Breast(s): Yes: WNL Musculoskeletal: Yes: WNL Extremities: Yes: WNL Edema: No Peripheral Pulses WNL: Yes Integumentary: Yes: WNL Neurological: Yes: Unresponsive, Other (sedated on propofol drip, no tremors or tonic clonic activity detected, PERRLA @ 3mm). No: Facial Droop, Seizure, Tremors Psychiatric: No: WNL, Alert, Oriented, Agitated, Suicidal Ideation, Other Labs: CBC, BMP 02/13/17 03:41 02/13/17 03:41 Imaging - Results Chest X-ray: Image Reviewed Cat Scan: Image Reviewed EKG: Image Reviewed Problem List - Problems (1) Alcohol withdrawal seizure Code(s): F10.239 - ALCOHOL DEPENDENCE WITH WITHDRAWAL, UNSPECIFIED; R56.9 - UNSPECIFIED CONVULSIONS Qualifiers: Complication of substance-induced condition: with unspecified complication Qualified Code(s): F10.239 - Alcohol dependence with withdrawal, unspecified; R56.9 - Unspecified convulsions; R56.9 - Unspecified convulsions; R56.9 - Unspecified convulsions; R56.9 - Unspecified convulsions (2) Alcoholic liver disease, unspecified Code(s): K70.9 - ALCOHOLIC LIVER DISEASE, UNSPECIFIED (3) Respiratory failure Code(s): J96.90 - RESPIRATORY FAILURE, UNSP, UNSP W HYPOXIA OR HYPERCAPNIA Qualifiers: Chronicity: unspecified Respiratory failure complication: unspecified whether with hypoxia or hypercapnia Qualified Code(s): J96.90 - Respiratory failure, unspecified, unspecified whether with hypoxia or hypercapnia (4) Seizure Code(s): R56.9 - UNSPECIFIED CONVULSIONS (5) Abnormal LFTs (liver function tests) Code(s): R79.89 - OTHER SPECIFIED ABNORMAL FINDINGS OF BLOOD CHEMISTRY Assessment/Plan A & P This is a 56 yo male with pmhx significant for ETOH abuse and liver cirrhosis found unresponsive in tonic clonic seizures BIBEMS to ED and orally intubated for airway protection and transferred to ICU for further management. Neuro: Seizures in the setting of tonic clonic activity and unresponsive, most liekly 2/2 ETOH WD given pmhx of ETOH abuse and elevated ammonia levels. HEad CT prelim neg, cervical neck CT neg, UTOX neg, now sedated on propofol, PERRL @ 3mm - f/u final read on head CT - Cont propofol gtt - Ativan PRN for sz - lactulose - f/u NH3 - consider neuro consult if Head CT findings positive or continued sz activity Pulm: orally intubated in the setting of oral airway protection from seziure activity. CXR shows retrocardiac density, otherwise clear, ETT in good position. - wean from vent as possible - send resp cx - cxr FEN: metabolic disarray in the setting of hypokalemia, hyponatremia, hypocholeremia; most likely 2/2 dehydration and malnutrition/poor intake r/t ETOH abuse and possible recent throat infection - repeat electrolytes - replete lytes as needed - folic acid - thiamine - Maintenance IVF CV: tachycardia HR in 100s most likely in the setting of ETOH WD and low grade fever 100.1 (axillary); trop neg , CKMB elevated. pmhx HTN on norvasc at home - f/u CKMB GI/endo: h/o liver cirrhosis r/t to ETOH abuse in now with elevated liver enzymes and elevated lipase, no guarding present on physical exam - trend lipase and liver enzymes - consider abd US : - cont ignacio for strict I & Os - send UA UCx, legionella PPX -protnix EMERSON Lopez-BC Pulm Critical Care
[2017-02-13] MEDS: PROPOFOL 1,000,000 MCG/100 ML VIAL IVPB SCH ×2 (06:38→21:00)
[2017-02-13] MEDS ORDERED: LACTULOSE 20 GM/30 ML UDC (FOR ORAL USE ONLY) PO ONE (07:07)
[2017-02-13] MEDS ORDERED: SODIUM CHLORIDE 1,000 ML IV SCH (07:15)
[2017-02-13] MEDS ORDERED: THIAMINE HCL 200 MG/2 ML VIAL IVPB ONE (09:05)
[2017-02-13] MEDS ORDERED: FOLIC ACID INJECTION - 1 MG, THIAMINE HCL 100 MG, MULTIVIT INJECTION ADULT 10 ML in SOD... IVPB ONE (09:05)
[2017-02-13 10:05] LABS: BASO % 0.3 % (0-2.0); EOS % 0.1 % (0-4.5); MCH 34.6 pg (25.7-33.7); MEAN CELL VOLUME 108.1 fl (80-96); MEAN PLT VOLUME 10.4 fl (7.5-11.1); NEUT % 79.6 % (42.8-82.8); PLATELET COUNT 84 K/MM3 (134-434); RDW 13.6 % (11.9-15.9); WHITE BLOOD COUNT 8.6 K/mm3 (4.0-10.0)
[2017-02-13] MEDS: LACTATED RINGERS SOLUTION 1,000 ML/1,000 ML INFUS.BAG IV SCH (10:12)
[2017-02-13 10:20] LABS: ALBUMIN 2.7 g/dl (3.4-5.0); ANION GAP 8 (8-16); CALCIUM 7.9 mg/dL (8.5-10.1); CO2 29 mmol/L (21-32); CREATININE 0.8 mg/dL (0.7-1.3); GLUCOSE,RANDOM 91 mg/dL (74-106); LDH 383 U/L (87-241); SGOT/AST 369 U/L (15-37); SGPT/ALT 169 U/L (12-78)
[2017-02-13 10:28] LABS: ALK PHOS 325 U/L (45-117); BILIRUBIN,TOTAL 5.4 mg/dL (0.2-1.0); TOT PROT 6.5 g/dl (6.4-8.2)
[2017-02-13 10:31] LABS: PHOSPHOROUS 0.5 mg/dL (2.5-4.9)
[2017-02-13] MEDS: MIDAZOLAM 100 MG in SODIUM CHLORIDE 100 ML IVPB SCH ×2 (10:42→19:00)
--- NOTE | 2017-02-13 13:15 | HP ---
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 Cardiovascular: Yes: HTN Hepatobiliary: Yes: Cirrhosis - Past Surgical History Past Surgical History: Yes: None - Smoking History Smoking history: Unknown if ever smoked Have you smoked in the past 12 months: No Aproximately how many cigarettes per day: 2 If you are a former smoker, when did you quit?: 2 years - Alcohol/Substance Use Hx Alcohol Use: Yes History of Substance Use: reports: None (denies) - Social History ADL: Independent (, normally seen at [facility] Home Medications - Allergies Allergies/Adverse Reactions: Allergies Allergy/AdvReac Type Severity Reaction Status Date / Time No Known Allergies Allergy Verified 02/13/17 03:27 - Home Medications Home Medications: Ambulatory Orders Amlodipine Besylate [Norvasc -] 5 mg PO DAILY #30 tablet 06/27/16 Folic Acid - 1 mg PO DAILY #30 tablet 06/27/16 Lactulose 20 gm PO DAILY #30 ml 06/27/16 Thiamine HCl [Vitamin B1 Injection -] 250 mg IVPB Q8H-IV #30 vial 06/27/16 Physical Examination Vital Signs: Vital Signs Temperature 100.5 F H 02/13/17 10:07 Pulse Rate 104 H 02/13/17 10:07 Respiratory Rate 20 02/13/17 11:48 Blood Pressure 137/81 02/13/17 10:07 O2 Sat by Pulse Oximetry (%) 100 02/13/17 09:30 Labs: CBC, BMP 02/13/17 09:30 02/13/17 09:30
--- NOTE | 2017-02-13 13:28 | PN ---
Teaching Attending Note Name of Resident: Johnnie Fitzgerald ATTENDING PHYSICIAN STATEMENT I saw and evaluated the patient. I reviewed the resident's note and discussed the case with the resident. I agree with the resident's findings and plan as documented. SUBJECTIVE: Patient seen and examined in the ICU. Intubated and sedated. No pressors. AC Mode of vent. No seizure activity. Intake & Output 02/10/17 02/11/17 02/12/17 02/13/17 23:59 23:59 23:59 23:59 Output Total 1400 Balance -1400 Weight 185 lb Last Vital Signs Temp Pulse Resp BP Pulse Ox 100.5 F H 104 H 20 137/81 100 02/13/17 10:07 02/13/17 10:07 02/13/17 11:48 02/13/17 10:07 02/13/17 09:30 Active Medications Propofol (Diprivan -) 1,000,000 mcg in 100 mls @ 2.517 mls/hr IVPB TITR RODRIGO; 5 MCG/KG/MIN PRN Reason: Protocol Last Titration: 02/13/17 07:58 Dose: 37.73 mcg/kg/min, 19 mls/hr Folic Acid 1 mg/ Thiamine HCl 100 mg/ Multivitamins/Minerals 10 ml/ Sodium Chloride 1,000 mls @ 125 mls/hr IVPB ONCE ONE Stop: 02/13/17 17:04 Lactated Ringer's (Lactated Ringers Solution) 1,000 ml in 1,000 mls @ 75 mls/ hr IV ASDIR RODRIGO Last Admin: 02/13/17 10:12 Dose: 75 mls/hr Midazolam HCl 100 mg/ Sodium (Chloride) 100 mls @ 1 mls/hr IVPB TITR RODRIGO; 1 MG/ HR PRN Reason: Protocol Stop: 02/14/17 09:14 Last Admin: 02/13/17 10:42 Dose: 1 mg/hr, 1 mls/hr Constitutional: Yes: Intubated and sedated Eyes: Yes: PERRL, Sclera Icterus, Other (perioorbital and sceral edema) HENT: Yes: WNL, Atraumatic, Normocephalic. No: Drooling, Epistaxis Neck: Yes: WNL, Supple, Trachea Midline Cardiovascular: Yes: WNL, Regular Rate and Rhythm, Tachycardia. No: Gallop, Murmur, S3, S4 Respiratory: Yes: Intubated, Scattered rhonchi Gastrointestinal: Yes: WNL, Normal Bowel Sounds, Soft. No: Tenderness, Rebound ...Rectal Exam: Yes: WNL Renal/: Yes: WNL, Shields Present. No: Bladder Distention, Hematuria Breast(s): Yes: WNL Musculoskeletal: Yes: WNL Extremities: Yes: WNL Edema: No Peripheral Pulses WNL: Yes Integumentary: Yes: WNL Neurological: Yes: Sedated on propofol drip, no seizure Labs: Laboratory Results - last 24 hr 02/13/17 02/13/17 02/13/17 03:41 03:41 03:41 WBC 7.9 RBC 3.19 L Hgb 11.3 L Hct 35.3 L MCV 110.7 H MCH 35.4 H MCHC 31.9 L RDW 13.9 D Plt Count 90 L D MPV 11.3 H Neutrophils % 73.9 Lymphocytes % 17.9 Monocytes % 7.8 Eosinophils % 0.3 Basophils % 0.1 Anisocytosis 1+ Macrocytosis 2+ Puncture Site ABG pH ABG pCO2 at Pt Temp ABG pO2 at Pt Temp ABG HCO3 ABG O2 Sat (Measured) ABG O2 Content ABG Base Excess Satnam Test O2 Delivery Device Oxygen Flow Rate PEEP Sodium 133 L Potassium 3.0 L Chloride 90 L D Carbon Dioxide 26 Anion Gap 17 H BUN 15 D Creatinine 1.4 H D Creat Clearance w eGFR 52.81 Random Glucose 178 H D Lactic Acid Calcium 9.3 Phosphorus Magnesium Total Bilirubin 5.5 H D AST 495 H D ALT 204 H D Alkaline Phosphatase 384 H Ammonia LD Total Creatine Kinase Creatine Kinase Index CK-MB (CK-2) Troponin I Total Protein 7.6 Albumin 3.3 L Lipase 554 H Urine Color Urine Appearance Urine pH Ur Specific [place] Urine Protein Urine Glucose (UA) Urine Ketones Urine Blood Urine Nitrite Urine Bilirubin Urine Urobilinogen Urine WBC (Auto) Urine RBC (Auto) Ur Epithelial Cells Calcium Oxalate Crystal Urine Bacteria Urine Mucus Stool Occult Blood Opiates Screen Negative Methadone Screen Negative Barbiturate Screen Negative Phencyclidine Screen Negative Ur Amphetamines Screen Negative MDMA (Ecstasy) Screen Negative Benzodiazepines Screen Negative Cocaine Screen Negative U Marijuana (THC) Screen Negative Alcohol, Quantitative 02/13/17 02/13/17 02/13/17 03:41 03:41 03:51 WBC RBC Hgb Hct MCV MCH MCHC RDW Plt Count MPV Neutrophils % Lymphocytes % Monocytes % Eosinophils % Basophils % Anisocytosis Macrocytosis Puncture Site ABG pH ABG pCO2 at Pt Temp ABG pO2 at Pt Temp ABG HCO3 ABG O2 Sat (Measured) ABG O2 Content ABG Base Excess Satnam Test O2 Delivery Device Oxygen Flow Rate PEEP Sodium Potassium Chloride Carbon Dioxide Anion Gap BUN Creatinine Creat Clearance w eGFR Random Glucose Lactic Acid Calcium Phosphorus Magnesium Total Bilirubin AST ALT Alkaline Phosphatase Ammonia LD Total Creatine Kinase 1826 H Creatine Kinase Index 0.3 CK-MB (CK-2) 5.693 H Troponin I < 0.02 Total Protein Albumin Lipase Urine Color Urine Appearance Urine pH Ur Specific [place] Urine Protein Urine Glucose (UA) Urine Ketones Urine Blood Urine Nitrite Urine Bilirubin Urine Urobilinogen Urine WBC (Auto) Urine RBC (Auto) Ur Epithelial Cells Calcium Oxalate Crystal Urine Bacteria Urine Mucus Stool Occult Blood Negative Opiates Screen Methadone Screen Barbiturate Screen Phencyclidine Screen Ur Amphetamines Screen MDMA (Ecstasy) Screen Benzodiazepines Screen Cocaine Screen U Marijuana (THC) Screen Alcohol, Quantitative < 5.0 02/13/17 02/13/17 02/13/17 04:49 04:52 05:30 WBC RBC Hgb Hct MCV MCH MCHC RDW Plt Count MPV Neutrophils % Lymphocytes % Monocytes % Eosinophils % Basophils % Anisocytosis Macrocytosis Puncture Site Left radial ABG pH 7.37 ABG pCO2 at Pt Temp 51.3 H ABG pO2 at Pt Temp 59.4 L ABG HCO3 29.2 H ABG O2 Sat (Measured) 88.2 L ABG O2 Content 13.8 L ABG Base Excess 3.6 H Satnam Test Y O2 Delivery Device Ventilator Oxygen Flow Rate 50 PEEP 75.0 Sodium Potassium Chloride Carbon Dioxide Anion Gap BUN Creatinine Creat Clearance w eGFR Random Glucose Lactic Acid Calcium Phosphorus Magnesium Total Bilirubin AST ALT Alkaline Phosphatase Ammonia 58.29 H LD Total Creatine Kinase Creatine Kinase Index CK-MB (CK-2) Troponin I Total Protein Albumin Lipase Urine Color Yellow Urine Appearance Slcloudy Urine pH 5.0 Ur Specific [place] 1.017 Urine Protein 1+ H Urine Glucose (UA) 1+ H Urine Ketones Negative Urine Blood 3+ H Urine Nitrite Negative Urine Bilirubin 2.0 Urine Urobilinogen 4.0 e.u/dl Urine WBC (Auto) 7 Urine RBC (Auto) 68 Ur Epithelial Cells Rare Calcium Oxalate Crystal Moderate Urine Bacteria Rare Urine Mucus Rare Stool Occult Blood Opiates Screen Methadone Screen Barbiturate Screen Phencyclidine Screen Ur Amphetamines Screen MDMA (Ecstasy) Screen Benzodiazepines Screen Cocaine Screen U Marijuana (THC) Screen Alcohol, Quantitative 02/13/17 02/13/17 02/13/17 09:30 09:30 09:30 WBC 8.6 RBC 3.14 L Hgb 10.8 L Hct 33.9 L MCV 108.1 H MCH 34.6 H MCHC 32.0 RDW 13.6 Plt Count 84 L MPV 10.4 Neutrophils % 79.6 Lymphocytes % 14.9 Monocytes % 5.1 Eosinophils % 0.1 Basophils % 0.3 Anisocytosis Macrocytosis Puncture Site ABG pH ABG pCO2 at Pt Temp ABG pO2 at Pt Temp ABG HCO3 ABG O2 Sat (Measured) ABG O2 Content ABG Base Excess Satnam Test O2 Delivery Device Oxygen Flow Rate PEEP Sodium 133 L Potassium 2.9 L* Chloride 96 L Carbon Dioxide 29 Anion Gap 8 BUN 9 D Creatinine 0.8 D Creat Clearance w eGFR > 60 Random Glucose 91 D Lactic Acid Calcium 7.9 L Phosphorus 0.5 L* Magnesium 2.0 Total Bilirubin 5.4 H AST 369 H D ALT 169 H Alkaline Phosphatase 325 H Ammonia 39.04 H LD Total 383 H Creatine Kinase Creatine Kinase Index CK-MB (CK-2) Troponin I Total Protein 6.5 Albumin 2.7 L Lipase Urine Color Urine Appearance Urine pH Ur Specific [place] Urine Protein Urine Glucose (UA) Urine Ketones Urine Blood Urine Nitrite Urine Bilirubin Urine Urobilinogen Urine WBC (Auto) Urine RBC (Auto) Ur Epithelial Cells Calcium Oxalate Crystal Urine Bacteria Urine Mucus Stool Occult Blood Opiates Screen Methadone Screen Barbiturate Screen Phencyclidine Screen Ur Amphetamines Screen MDMA (Ecstasy) Screen Benzodiazepines Screen Cocaine Screen U Marijuana (THC) Screen Alcohol, Quantitative 02/13/17 09:30 WBC RBC Hgb Hct MCV MCH MCHC RDW Plt Count MPV Neutrophils % Lymphocytes % Monocytes % Eosinophils % Basophils % Anisocytosis Macrocytosis Puncture Site ABG pH ABG pCO2 at Pt Temp ABG pO2 at Pt Temp ABG HCO3 ABG O2 Sat (Measured) ABG O2 Content ABG Base Excess Satnam Test O2 Delivery Device Oxygen Flow Rate PEEP Sodium Potassium Chloride Carbon Dioxide Anion Gap BUN Creatinine Creat Clearance w eGFR Random Glucose Lactic Acid 0.8 Calcium Phosphorus Magnesium Total Bilirubin AST ALT Alkaline Phosphatase Ammonia LD Total Creatine Kinase Creatine Kinase Index CK-MB (CK-2) Troponin I Total Protein Albumin Lipase Urine Color Urine Appearance Urine pH Ur Specific [place] Urine Protein Urine Glucose (UA) Urine Ketones Urine Blood Urine Nitrite Urine Bilirubin Urine Urobilinogen Urine WBC (Auto) Urine RBC (Auto) Ur Epithelial Cells Calcium Oxalate Crystal Urine Bacteria Urine Mucus Stool Occult Blood Opiates Screen Methadone Screen Barbiturate Screen Phencyclidine Screen Ur Amphetamines Screen MDMA (Ecstasy) Screen Benzodiazepines Screen Cocaine Screen U Marijuana (THC) Screen Alcohol, Quantitative Problem List - Problems (1) Alcohol withdrawal seizure Code(s): F10.239 - ALCOHOL DEPENDENCE WITH WITHDRAWAL, UNSPECIFIED; R56.9 - UNSPECIFIED CONVULSIONS Qualifiers: Complication of substance-induced condition: with unspecified complication Qualified Code(s): F10.239 - Alcohol dependence with withdrawal, unspecified; R56.9 - Unspecified convulsions; R56.9 - Unspecified convulsions; R56.9 - Unspecified convulsions; R56.9 - Unspecified convulsions (2) Alcoholic liver disease, unspecified Code(s): K70.9 - ALCOHOLIC LIVER DISEASE, UNSPECIFIED (3) Respiratory failure Code(s): J96.90 - RESPIRATORY FAILURE, UNSP, UNSP W HYPOXIA OR HYPERCAPNIA Qualifiers: Chronicity: unspecified Respiratory failure complication: unspecified whether with hypoxia or hypercapnia Qualified Code(s): J96.90 - Respiratory failure, unspecified, unspecified whether with hypoxia or hypercapnia (4) Seizure Code(s): R56.9 - UNSPECIFIED CONVULSIONS (5) Abnormal LFTs (liver function tests) Code(s): R79.89 - OTHER SPECIFIED ABNORMAL FINDINGS OF BLOOD CHEMISTRY Assessment/Plan Sedate for vent synchroncy AEDs Neuro consult IVF VTE prophylaxis Thiamine MVI ICU monitoring Dr Davis Critical care time spent in reviewing chart, evaluating patient and formulating plan - 40 minutes.
--- NOTE | 2017-02-13 14:55 | EKG ---
Test Reason : Blood Pressure : / mmHG Vent. Rate : 106 BPM Atrial Rate : 106 BPM P-R Int : 156 ms QRS Dur : 088 ms QT Int : 342 ms P-R-T Axes : 067 035 034 degrees QTc Int : 454 ms SINUS TACHYCARDIA SEPTAL INFARCT (CITED ON OR BEFORE 22-JUN-2016) ABNORMAL ECG WHEN COMPARED WITH ECG OF 22-JUN-2016 23:28, NO SIGNIFICANT CHANGE WAS FOUND Confirmed by SHANE PICKERING MD ([id number]) on 02/13/2017 2:54:53 PM Referred By: Confirmed By:SHANE PICKERING MD
--- NOTE | 2017-02-13 15:44 | CONSULT ---
Consultation: REQUESTING PROVIDER: CONSULT REQUEST: We have been asked to medically evaluate this patient for EtOH withdrawal and seizures requiring ICU care. HISTORY OF PRESENT ILLNESS: Pt is a 56 M with a long history of EtOH abuse with multiple admissions for withdrawal and detox 6 months ago. Last drink was sometime in the last week per record. Pt has had some nasal congestion and malaise for the last week or so for which he took OTC medication. He presented to ED after being found unconscious by family at home. REVIEW OF SYSTEMS: CONSTITUTIONAL: fever, malaise Absent: , chills, diaphoresis, generalized weakness, loss of appetite, weight change HEENT: nasal congestion Absent: rhinorrhea, , throat pain, throat swelling, difficulty swallowing, mouth swelling, ear pain, eye pain, visual changes CARDIOVASCULAR: Absent: chest pain, syncope, palpitations, irregular heart rate, lightheadedness , peripheral edema RESPIRATORY: Absent: cough, shortness of breath, dyspnea with exertion, orthopnea, wheezing, stridor, hemoptysis GASTROINTESTINAL: Absent: abdominal pain, abdominal distension, nausea, vomiting, diarrhea, constipation, melena, hematochezia GENITOURINARY: Absent: dysuria, frequency, urgency, hesitancy, hematuria, flank pain, genital pain MUSCULOSKELETAL: Absent: myalgia, arthralgia, joint swelling, back pain, neck pain SKIN: Absent: rash, itching, pallor HEMATOLOGIC/IMMUNOLOGIC: Absent: easy bleeding, easy bruising, lymphadenopathy, frequent infections ENDOCRINE: Absent: unexplained weight gain, unexplained weight loss, heat intolerance, cold intolerance NEUROLOGIC: Absent: headache, focal weakness or paresthesias, dizziness, unsteady gait, seizure, mental status changes, bladder or bowel incontinence PSYCHIATRIC: Absent: anxiety, depression, suicidal or homicidal ideation, hallucinations. PHYSICAL EXAMINATION Vital Signs - 24 hr 02/13/17 02/13/17 02/13/17 03:27 04:03 04:26 Temperature 99 F Pulse Rate 118 H Pulse Rate [ 115 H 126 H Apical] Respiratory 26 H 14 Rate Blood Pressure 159/92 Blood Pressure 117/89 155/91 [Left Arm] O2 Sat by Pulse 99 100 Oximetry (%) 02/13/17 02/13/17 02/13/17 04:38 04:46 05:00 Temperature Pulse Rate Pulse Rate [ 105 H 108 H Apical] Respiratory 18 12 16 Rate Blood Pressure Blood Pressure 153/100 169/96 [Left Arm] O2 Sat by Pulse 100 95 Oximetry (%) 02/13/17 02/13/17 02/13/17 06:42 07:06 08:00 Temperature 98.9 F Pulse Rate 105 H 94 H Pulse Rate [ Apical] Respiratory 16 16 22 Rate Blood Pressure 119/83 132/87 Blood Pressure [Left Arm] O2 Sat by Pulse Oximetry (%) 02/13/17 02/13/17 02/13/17 09:00 09:30 09:35 Temperature Pulse Rate 98 H 103 H Pulse Rate [ Apical] Respiratory 21 22 Rate Blood Pressure 122/92 Blood Pressure [Left Arm] O2 Sat by Pulse 100 100 Oximetry (%) 02/13/17 02/13/17 02/13/17 10:07 11:48 14:19 Temperature 100.5 F H Pulse Rate 104 H Pulse Rate [ Apical] Respiratory 22 20 16 Rate Blood Pressure 137/81 Blood Pressure [Left Arm] O2 Sat by Pulse Oximetry (%) GENERAL: intubated, sedated, in no acute distress. HEAD: Normal with no signs of trauma. EYES: Pupils equal, round and reactive to light, sclera anicteric, conjunctiva clear. No lid lag. EARS, NOSE, THROAT: oropharynx clear without exudates. Moist mucous membranes. NECK: Normal range of motion, supple without lymphadenopathy, JVD, or masses. LUNGS: Breath sounds equal, clear to auscultation bilaterally. No wheezes, and no crackles. No accessory muscle use. HEART: Regular rate and rhythm, normal S1 and S2 without murmur, rub or gallop. ABDOMEN: Soft, not distended, normoactive bowel sounds, no guarding, no rebound , no masses. No hepatomegaly or splenomegaly. MUSCULOSKELETAL: Normal range of motion at all joints. No bony deformities or tenderness. No CVA tenderness. UPPER EXTREMITIES: 2+ pulses, warm, well-perfused. No cyanosis. No clubbing. Cap refill <2 seconds. No peripheral edema. LOWER EXTREMITIES: 2+ pulses, warm, well-perfused. No calf tenderness. No peripheral edema. NEUROLOGICAL: intubated, sedated. Pt has spontaneous twitching movements. Unclear if myoclonus PSYCHIATRIC: intubated, sedated SKIN: Warm, dry, normal turgor, no rashes or lesions noted. Laboratory Results - last 24 hr 02/13/17 02/13/17 02/13/17 03:41 03:41 03:41 WBC 7.9 RBC 3.19 L Hgb 11.3 L Hct 35.3 L MCV 110.7 H MCH 35.4 H MCHC 31.9 L RDW 13.9 D Plt Count 90 L D MPV 11.3 H Neutrophils % 73.9 Lymphocytes % 17.9 Monocytes % 7.8 Eosinophils % 0.3 Basophils % 0.1 Anisocytosis 1+ Macrocytosis 2+ Puncture Site ABG pH ABG pCO2 at Pt Temp ABG pO2 at Pt Temp ABG HCO3 ABG O2 Sat (Measured) ABG O2 Content ABG Base Excess Satnam Test O2 Delivery Device Oxygen Flow Rate PEEP Sodium 133 L Potassium 3.0 L Chloride 90 L D Carbon Dioxide 26 Anion Gap 17 H BUN 15 D Creatinine 1.4 H D Creat Clearance w eGFR 52.81 Random Glucose 178 H D Lactic Acid Calcium 9.3 Phosphorus Magnesium Total Bilirubin 5.5 H D AST 495 H D ALT 204 H D Alkaline Phosphatase 384 H Ammonia LD Total Creatine Kinase Creatine Kinase Index CK-MB (CK-2) Troponin I Total Protein 7.6 Albumin 3.3 L Lipase 554 H Urine Color Urine Appearance Urine pH Ur Specific Blackey Urine Protein Urine Glucose (UA) Urine Ketones Urine Blood Urine Nitrite Urine Bilirubin Urine Urobilinogen Urine WBC (Auto) Urine RBC (Auto) Ur Epithelial Cells Calcium Oxalate Crystal Urine Bacteria Urine Mucus Stool Occult Blood Opiates Screen Negative Methadone Screen Negative Barbiturate Screen Negative Phencyclidine Screen Negative Ur Amphetamines Screen Negative MDMA (Ecstasy) Screen Negative Benzodiazepines Screen Negative Cocaine Screen Negative U Marijuana (THC) Screen Negative Alcohol, Quantitative 02/13/17 02/13/17 02/13/17 03:41 03:41 03:51 WBC RBC Hgb Hct MCV MCH MCHC RDW Plt Count MPV Neutrophils % Lymphocytes % Monocytes % Eosinophils % Basophils % Anisocytosis Macrocytosis Puncture Site ABG pH ABG pCO2 at Pt Temp ABG pO2 at Pt Temp ABG HCO3 ABG O2 Sat (Measured) ABG O2 Content ABG Base Excess Satnam Test O2 Delivery Device Oxygen Flow Rate PEEP Sodium Potassium Chloride Carbon Dioxide Anion Gap BUN Creatinine Creat Clearance w eGFR Random Glucose Lactic Acid Calcium Phosphorus Magnesium Total Bilirubin AST ALT Alkaline Phosphatase Ammonia LD Total Creatine Kinase 1826 H Creatine Kinase Index 0.3 CK-MB (CK-2) 5.693 H Troponin I < 0.02 Total Protein Albumin Lipase Urine Color Urine Appearance Urine pH Ur Specific Blackey Urine Protein Urine Glucose (UA) Urine Ketones Urine Blood Urine Nitrite Urine Bilirubin Urine Urobilinogen Urine WBC (Auto) Urine RBC (Auto) Ur Epithelial Cells Calcium Oxalate Crystal Urine Bacteria Urine Mucus Stool Occult Blood Negative Opiates Screen Methadone Screen Barbiturate Screen Phencyclidine Screen Ur Amphetamines Screen MDMA (Ecstasy) Screen Benzodiazepines Screen Cocaine Screen U Marijuana (THC) Screen Alcohol, Quantitative < 5.0 02/13/17 02/13/17 02/13/17 04:49 04:52 05:30 WBC RBC Hgb Hct MCV MCH MCHC RDW Plt Count MPV Neutrophils % Lymphocytes % Monocytes % Eosinophils % Basophils % Anisocytosis Macrocytosis Puncture Site Left radial ABG pH 7.37 ABG pCO2 at Pt Temp 51.3 H ABG pO2 at Pt Temp 59.4 L ABG HCO3 29.2 H ABG O2 Sat (Measured) 88.2 L ABG O2 Content 13.8 L ABG Base Excess 3.6 H Satnam Test Y O2 Delivery Device Ventilator Oxygen Flow Rate 50 PEEP 75.0 Sodium Potassium Chloride Carbon Dioxide Anion Gap BUN Creatinine Creat Clearance w eGFR Random Glucose Lactic Acid Calcium Phosphorus Magnesium Total Bilirubin AST ALT Alkaline Phosphatase Ammonia 58.29 H LD Total Creatine Kinase Creatine Kinase Index CK-MB (CK-2) Troponin I Total Protein Albumin Lipase Urine Color Yellow Urine Appearance Slcloudy Urine pH 5.0 Ur Specific Blackey 1.017 Urine Protein 1+ H Urine Glucose (UA) 1+ H Urine Ketones Negative Urine Blood 3+ H Urine Nitrite Negative Urine Bilirubin 2.0 Urine Urobilinogen 4.0 e.u/dl Urine WBC (Auto) 7 Urine RBC (Auto) 68 Ur Epithelial Cells Rare Calcium Oxalate Crystal Moderate Urine Bacteria Rare Urine Mucus Rare Stool Occult Blood Opiates Screen Methadone Screen Barbiturate Screen Phencyclidine Screen Ur Amphetamines Screen MDMA (Ecstasy) Screen Benzodiazepines Screen Cocaine Screen U Marijuana (THC) Screen Alcohol, Quantitative 02/13/17 02/13/17 02/13/17 09:30 09:30 09:30 WBC 8.6 RBC 3.14 L Hgb 10.8 L Hct 33.9 L MCV 108.1 H MCH 34.6 H MCHC 32.0 RDW 13.6 Plt Count 84 L MPV 10.4 Neutrophils % 79.6 Lymphocytes % 14.9 Monocytes % 5.1 Eosinophils % 0.1 Basophils % 0.3 Anisocytosis Macrocytosis Puncture Site ABG pH ABG pCO2 at Pt Temp ABG pO2 at Pt Temp ABG HCO3 ABG O2 Sat (Measured) ABG O2 Content ABG Base Excess Satnam Test O2 Delivery Device Oxygen Flow Rate PEEP Sodium 133 L Potassium 2.9 L* Chloride 96 L Carbon Dioxide 29 Anion Gap 8 BUN 9 D Creatinine 0.8 D Creat Clearance w eGFR > 60 Random Glucose 91 D Lactic Acid Calcium 7.9 L Phosphorus 0.5 L* Magnesium 2.0 Total Bilirubin 5.4 H AST 369 H D ALT 169 H Alkaline Phosphatase 325 H Ammonia 39.04 H LD Total 383 H Creatine Kinase Creatine Kinase Index CK-MB (CK-2) Troponin I Total Protein 6.5 Albumin 2.7 L Lipase Urine Color Urine Appearance Urine pH Ur Specific Blackey Urine Protein Urine Glucose (UA) Urine Ketones Urine Blood Urine Nitrite Urine Bilirubin Urine Urobilinogen Urine WBC (Auto) Urine RBC (Auto) Ur Epithelial Cells Calcium Oxalate Crystal Urine Bacteria Urine Mucus Stool Occult Blood Opiates Screen Methadone Screen Barbiturate Screen Phencyclidine Screen Ur Amphetamines Screen MDMA (Ecstasy) Screen Benzodiazepines Screen Cocaine Screen U Marijuana (THC) Screen Alcohol, Quantitative 02/13/17 09:30 WBC RBC Hgb Hct MCV MCH MCHC RDW Plt Count MPV Neutrophils % Lymphocytes % Monocytes % Eosinophils % Basophils % Anisocytosis Macrocytosis Puncture Site ABG pH ABG pCO2 at Pt Temp ABG pO2 at Pt Temp ABG HCO3 ABG O2 Sat (Measured) ABG O2 Content ABG Base Excess Satnam Test O2 Delivery Device Oxygen Flow Rate PEEP Sodium Potassium Chloride Carbon Dioxide Anion Gap BUN Creatinine Creat Clearance w eGFR Random Glucose Lactic Acid 0.8 Calcium Phosphorus Magnesium Total Bilirubin AST ALT Alkaline Phosphatase Ammonia LD Total Creatine Kinase Creatine Kinase Index CK-MB (CK-2) Troponin I Total Protein Albumin Lipase Urine Color Urine Appearance Urine pH Ur Specific Blackey Urine Protein Urine Glucose (UA) Urine Ketones Urine Blood Urine Nitrite Urine Bilirubin Urine Urobilinogen Urine WBC (Auto) Urine RBC (Auto) Ur Epithelial Cells Calcium Oxalate Crystal Urine Bacteria Urine Mucus Stool Occult Blood Opiates Screen Methadone Screen Barbiturate Screen Phencyclidine Screen Ur Amphetamines Screen MDMA (Ecstasy) Screen Benzodiazepines Screen Cocaine Screen U Marijuana (THC) Screen Alcohol, Quantitative Active Medications Generic Name Dose Route Start Last Admin Trade Name Domonique PRN Reason Stop Dose Admin Propofol 1,000,000 mcg in 100 mls @ 2.517 mls/hr 02/13/17 06:15 02/13/17 07: 58 Diprivan - IVPB 37.73 mcg/kg/min TITR RODRIGO 19 mls/hr Protocol Titration 5 MCG/KG/MIN Folic Acid 1 mg/ Thiamine HCl 1,000 mls @ 125 mls/hr 02/13/17 09:05 100 mg/ Multivitamins/Minerals IVPB 02/13/17 17:04 10 ml/ Sodium Chloride ONCE ONE Lactated Ringer's 1,000 ml in 1,000 mls @ 75 mls/hr 02/13/17 09:15 02/13/17 10:12 Lactated Ringers Solution IV 75 mls/hr ASDIR RODRIGO Administration Midazolam HCl 100 mg/ Sodium 100 mls @ 1 mls/hr 02/13/17 09:15 02/13/17 10:42 Chloride IVPB 02/14/17 09:14 1 mg/hr TITR RODRIGO 1 mls/hr Protocol Administration 1 MG/HR ASSESSMENT/PLAN: Pt is a 56M w/ extensive history of alcohol abuse with seizures and detox 6 mo ago. Last drink sometime in the last week. Pt came to ICU after having refractory seizures in ED requiring intubation and sedation. Neuro #EtOH withdrawal -Pt intubated and sedated for withdrawal seizures -Pt was on Keppra (not taken recently), so unclear if epileptic vs DT seizures -Propofol drip -Versed drip -Banana bag -Neuro consult #Encephalopathy -ammonia level high at home. Pt has been taking lactulose as outpt -ammonia level above baseline in ICU GI #Hepatitis -transaminitis above his baseline -on LR -abd u/s pending #Pancreatitis -elevated lipase -abd u/s pending Pulm #Intubated and sedated -maintain intubation for tonight FEN -on LR -f/u repeat labs for lyte abnormalities -NPO for now Dispo: We will continue to follow the patient. Thank you for this consultative opportunity. Johnnie Fitzgerald MD PGY-1 ICU Visit type - Emergency Visit Emergency Visit: No - New Patient This patient is new to me today: Yes Date on this admission: 02/13/17 - Critical Care Critical Care patient: Yes Total Critical Care Time (in minutes): 35 Critical Care Statement: The care of this patient involved high complexity decision making to prevent further life threatening deterioration of the patient 's condition and/or to evaluate & treat vital organ system(s) failure or risk of failure.
--- NOTE | 2017-02-13 17:59 | CONSULT ---
Consult - text type - Consultation Consultation Note: NEUROLOGY CONSULTATION is greatly appreciated: This 56 yo recently man with h/o HTN and seizure disorder [facility] hasn't taken meds in some time. [employer] s[employer]p resection of craniopharyngioma 2006 (Dr. Jack Flynn). Given seizure meds after this. Known to me from 2016 eval of B/L hand numbness revealing severe, B/L Carpal tunnel syndromes. H/O heavy drinking since his divorce. Apparently stopped drinking x few days with "Viral symptoms." Now admitted after [facility] with apparently witnessed seizures. Given Lorazepam, intubated. Now on Midazolam and propofol drips. CT of head and C-spine (both reviewed): no traumatic lesions. Labs sig for marked elevated transaminases, alk phos, Ammonia, electrolyte imbalance and a BAL <5 mg%. EXAM: Jaundiced (Scleral icterus) Intubated. Unresponsive to pain. + spontaneous respirations [id number]. No EOM's to Doll's head. Corneals -/- No withdrawal or response to pinch/pain Flaccid/ areflexic. Plantars silent. IMP: 1. Severe, Bilateral, cerebral dysfunction c/w severe Toxic-metabolic encephalopathy (Drug induced coma). 2. Alcohol withdrawal seizure. 3. Hepatic failure with probable hepatic encephalopathy SUGGEST: Agree with the use of midazolam as anti-seizure monotherapy at this juncture. If seizures resume as we taper midazolam in a few days we will load with Fosphenytoin. Midazolam will also substitute for Chlorazepam in the "detox protocol." Resume parenteral thiamine 250 mg IVPB q 8 hrs x 72 hrs. GI/Hepatology consultation (R/O varices and GI bleed). Taper propofol first, then Midazolam slowly. Thank you very much, Boris Ruiz MD
[2017-02-13 18:12] LABS: ANION GAP 8 (8-16); CALCIUM 7.9 mg/dL (8.5-10.1); CO2 29 mmol/L (21-32); CREATININE 0.8 mg/dL (0.7-1.3); GLUCOSE,RANDOM 106 mg/dL (74-106); MAGNESIUM 1.9 mg/dL (1.8-2.4)
[2017-02-13] MEDS: THIAMINE HCL 200 MG/2 ML VIAL IVPB SCH (18:18)
[2017-02-13 18:35] LABS: PHOSPHOROUS 0.5 mg/dL (2.5-4.9)
[2017-02-13] MEDS ORDERED: POTASSIUM CHLORIDE ORAL LIQUID 20 MEQ/15 ML PO ONE ×2 (18:43→18:56)
[2017-02-13 18:53] LABS: URINE LEUK ESTERASE NEGATIVE (NEGATIVE)
[2017-02-13] MEDS ORDERED: PROPOFOL 1,000,000 MCG/100 ML VIAL ONE (20:00)
[2017-02-13] MEDS ORDERED: POTASSIUM PHOSPHATE 20 MM in DEXTROSE 5%-WATER - 250 ML IVPB ONE (20:45)
[2017-02-13] MEDS ORDERED: ACETAMINOPHEN 1000 MG/100 ML VIAL (NON FORMULARY) IVPB ONE (21:17)
[2017-02-13] MEDS ORDERED: IBUPROFEN 800 MG/8 ML IJ IVPB STA (21:18)
--- NOTE | 2017-02-13 21:20 | PN ---
Progress Note (short form) - Note Progress Note: Pt febrile at 9pm with fever ~101F. Stat blood cx ordered Thank you Otilia Vo MD PGY-1 ICU
[2017-02-13] MEDS ORDERED: NAPH,MB-DB/K PH,MBDB POWDER PACKET PO SCH (22:00)
[2017-02-13] MEDS ORDERED: PT OWN MED DRAWER 7, Y5N ONE (22:22)
[2017-02-13 22:29] LABS: BASO % 0.8 % (0-2.0); EOS % 0.1 % (0-4.5); MCH 35.4 pg (25.7-33.7); MCHC 32.8 g/dl (32.0-35.9); MEAN CELL VOLUME 107.8 fl (80-96); MEAN PLT VOLUME 10.4 fl (7.5-11.1); NEUT % 85.5 % (42.8-82.8); PLATELET COUNT 95 K/MM3 (134-434); RDW 13.4 % (11.9-15.9); WHITE BLOOD COUNT 8.8 K/mm3 (4.0-10.0)
[2017-02-14] MEDS: THIAMINE HCL 200 MG/2 ML VIAL IVPB SCH ×3 (01:28→17:27)
[2017-02-14] MEDS: PROPOFOL 1,000,000 MCG/100 ML VIAL IVPB SCH ×4 (02:03→21:59)
[2017-02-14] MEDS: LACTATED RINGERS SOLUTION 1,000 ML/1,000 ML INFUS.BAG IV SCH (02:04)
[2017-02-14] MEDS ORDERED: IBUPROFEN 800 MG/8 ML IJ IVPB STA (06:21)
[2017-02-14 06:32] LABS: BASO % 0.5 % (0-2.0); EOS % 0.5 % (0-4.5); MCH 35.7 pg (25.7-33.7); MCHC 33.1 g/dl (32.0-35.9); MEAN CELL VOLUME 107.7 fl (80-96); MEAN PLT VOLUME 10.6 fl (7.5-11.1); NEUT % 81.7 % (42.8-82.8); PLATELET COUNT 108 K/MM3 (134-434); RDW 13.8 % (11.9-15.9); WHITE BLOOD COUNT 9.1 K/mm3 (4.0-10.0)
[2017-02-14] MEDS: NAPH,MB-DB/K PH,MBDB POWDER PACKET PO SCH ×3 (06:45→22:00)
[2017-02-14 06:49] LABS: ALBUMIN 2.5 g/dl (3.4-5.0); ANION GAP 10 (8-16); CO2 30 mmol/L (21-32); CREATININE 0.7 mg/dL (0.7-1.3); GLUCOSE,RANDOM 109 mg/dL (74-106); MAGNESIUM 1.8 mg/dL (1.8-2.4); PHOSPHOROUS 1.5 mg/dL (2.5-4.9); SGOT/AST 245 U/L (15-37); SGPT/ALT 136 U/L (12-78)
[2017-02-14 06:53] LABS: ALK PHOS 277 U/L (45-117); BILIRUBIN,TOTAL 6.7 mg/dL (0.2-1.0); TOT PROT 6.2 g/dl (6.4-8.2)
[2017-02-14] MEDS ORDERED: LACTATED RINGERS SOLUTION 1,000 ML/1,000 ML INFUS.BAG IV SCH (08:04)
[2017-02-14] MEDS ORDERED: fentaNYL CITRATE 250 MCG/5 ML VIAL ONE ×2 (08:26→14:47)
[2017-02-14] MEDS: FENTANYL INJECTION 500 MCG in DEXTROSE 5%-WATER - 90 ML IVPB SCH (08:28)
[2017-02-14] MEDS ORDERED: POTASSIUM PHOSPHATE 30 MM in SODIUM CHLORIDE 250 ML IVPB ONE (09:00)
[2017-02-14] MEDS ORDERED: SODIUM CHLORIDE 1,000 ML with POTASSIUM CHLORIDE 40 MEQ IVPB STA (11:49)
[2017-02-14] MEDS ORDERED: SODIUM CHLORIDE 1,000 ML IV SCH (12:15)
--- NOTE | 2017-02-14 14:23 | PN ---
Teaching Attending Note Name of Resident: Johnnie Fitzgerald ATTENDING PHYSICIAN STATEMENT I saw and evaluated the patient. I reviewed the resident's note and discussed the case with the resident. I agree with the resident's findings and plan as documented. SUBJECTIVE: Patient seen and examined in the ICU. Intubated and sedated. No pressors. AC Mode of vent. No seizure activity. (+) fever Intake & Output 02/11/17 02/12/17 02/13/17 02/14/17 23:59 23:59 23:59 23:59 Intake Total 2801 1160.8 Output Total 4400 3000 Balance -1599 -1839.2 Weight 185 lb 171 lb 11.2 oz Last Vital Signs Temp Pulse Resp BP Pulse Ox 98.7 F 86 16 102/67 97 02/14/17 10:00 02/14/17 12:38 02/14/17 12:38 02/14/17 12:38 02/14/17 11:22 Active Medications Propofol (Diprivan -) 1,000,000 mcg in 100 mls @ 2.517 mls/hr IVPB TITR RODRIGO; 5 MCG/KG/MIN PRN Reason: Protocol Last Titration: 02/14/17 07:29 Dose: 61.17 mcg/kg/min, 30.8 mls/hr Fentanyl 500 mcg/ Dextrose 100 mls @ 0 mls/hr IVPB TITR RODIRGO PRN Reason: Titrate Last Admin: 02/14/17 08:28 Dose: 500 mls/hr Potassium Phosphate 30 mm/ (Sodium Chloride) 260 mls @ 43.333 mls/hr IVPB ONCE ONE Stop: 02/14/17 14:59 Last Admin: 02/14/17 09:50 Dose: 43.333 mls/hr Potassium Chloride 40 meq/ (Sodium Chloride) 1,020 mls @ 1,000 mls/hr IVPB ASDIR STA Stop: 02/14/17 12:50 Potassium Phos/Sodium Phos (Phos-Nak Packet -) 1 packet PO TID RODRIGO Last Admin: 02/14/17 06:45 Dose: Not Given Thiamine HCl (Vitamin B1 Injection -) 250 mg IVPB Q8H-IV RODRIGO Last Admin: 02/14/17 09:51 Dose: 250 mg Constitutional: Yes: Intubated and sedated Eyes: Yes: PERRL, Sclera Icterus, Other (perioorbital and sceral edema) HENT: Yes: WNL, Atraumatic, Normocephalic. No: Drooling, Epistaxis Neck: Yes: WNL, Supple, Trachea Midline Cardiovascular: Yes: WNL, Regular Rate and Rhythm, Tachycardia. No: Gallop, Murmur, S3, S4 Respiratory: Yes: Intubated, Scattered rhonchi Gastrointestinal: Yes: WNL, Normal Bowel Sounds, Soft. No: Tenderness, Rebound ...Rectal Exam: Yes: WNL Renal/: Yes: WNL, Shields Present. No: Bladder Distention, Hematuria Breast(s): Yes: WNL Musculoskeletal: Yes: WNL Extremities: Yes: WNL Edema: No Peripheral Pulses WNL: Yes Integumentary: Yes: WNL Neurological: Yes: Sedated on propofol drip, no seizure Labs: Laboratory Results - last 24 hr 02/13/17 02/13/17 02/13/17 04:49 17:20 21:45 WBC 8.8 RBC 2.93 L Hgb 10.4 L Hct 31.6 L MCV 107.8 H MCH 35.4 H MCHC 32.8 RDW 13.4 Plt Count 95 L MPV 10.4 Neutrophils % 85.5 H Lymphocytes % 8.3 D Monocytes % 5.3 Eosinophils % 0.1 Basophils % 0.8 Sodium 134 L Potassium 2.6 L* Chloride 97 L Carbon Dioxide 29 Anion Gap 8 BUN 6 L D Creatinine 0.8 Creat Clearance w eGFR Random Glucose 106 Calcium 7.9 L Phosphorus 0.5 L* Magnesium 1.9 Total Bilirubin AST ALT Alkaline Phosphatase Total Protein Albumin Ur Leukocyte Esterase Negative 02/14/17 02/14/17 06:05 06:05 WBC 9.1 RBC 3.03 L Hgb 10.8 L Hct 32.7 L MCV 107.7 H MCH 35.7 H MCHC 33.1 RDW 13.8 Plt Count 108 L MPV 10.6 Neutrophils % 81.7 Lymphocytes % 11.3 D Monocytes % 6.0 Eosinophils % 0.5 D Basophils % 0.5 Sodium 139 Potassium 2.6 L* Chloride 99 Carbon Dioxide 30 Anion Gap 10 BUN 4 L D Creatinine 0.7 Creat Clearance w eGFR > 60 Random Glucose 109 H Calcium 8.0 L Phosphorus 1.5 L D Magnesium 1.8 Total Bilirubin 6.7 H D AST 245 H D ALT 136 H Alkaline Phosphatase 277 H Total Protein 6.2 L Albumin 2.5 L Ur Leukocyte Esterase Problem List - Problems (1) Alcohol withdrawal seizure Code(s): F10.239 - ALCOHOL DEPENDENCE WITH WITHDRAWAL, UNSPECIFIED; R56.9 - UNSPECIFIED CONVULSIONS Qualifiers: Complication of substance-induced condition: with unspecified complication Qualified Code(s): F10.239 - Alcohol dependence with withdrawal, unspecified; R56.9 - Unspecified convulsions; R56.9 - Unspecified convulsions; R56.9 - Unspecified convulsions; R56.9 - Unspecified convulsions (2) Alcoholic liver disease, unspecified Code(s): K70.9 - ALCOHOLIC LIVER DISEASE, UNSPECIFIED (3) Respiratory failure Code(s): J96.90 - RESPIRATORY FAILURE, UNSP, UNSP W HYPOXIA OR HYPERCAPNIA Qualifiers: Chronicity: unspecified Respiratory failure complication: unspecified whether with hypoxia or hypercapnia Qualified Code(s): J96.90 - Respiratory failure, unspecified, unspecified whether with hypoxia or hypercapnia (4) Seizure Code(s): R56.9 - UNSPECIFIED CONVULSIONS (5) Abnormal LFTs (liver function tests) Code(s): R79.89 - OTHER SPECIFIED ABNORMAL FINDINGS OF BLOOD CHEMISTRY Assessment/Plan Sedation vacation AEDs IVF VTE prophylaxis Thiamine MVI ABX per ID ICU monitoring Dr Davis Critical care time spent in reviewing chart, evaluating patient and formulating plan - 40 minutes.
--- NOTE | 2017-02-14 14:42 | PN ---
Physical Exam: SUBJECTIVE: Patient seen and examined at bedside. BP stable. Low fevers. Intubated and sedated. Pt had fever last night for which cultures were drawn. No other events. OBJECTIVE: Vital Signs Period Temp Pulse Resp BP Sys/Mcbride Pulse Ox Last 24 Hr 98.7 F-101.9 F 85-112 16-26 102-162/67-103 97-100 GENERAL: intubated, sedated, in no acute distress. HEAD: Normal with no signs of trauma. EYES: sclera anicteric, conjunctiva clear. No lid lag. EARS, NOSE, THROAT: oropharynx clear without exudates. Moist mucous membranes. NECK: Normal range of motion, supple without lymphadenopathy, JVD, or masses. LUNGS: Breath sounds equal, clear to auscultation bilaterally. No wheezes, and no crackles. No accessory muscle use. HEART: Regular rate and rhythm, normal S1 and S2 without murmur, rub or gallop. ABDOMEN: Soft, not distended, normoactive bowel sounds, no guarding, no rebound , no masses. No hepatomegaly or splenomegaly. MUSCULOSKELETAL: Normal range of motion at all joints. No bony deformities or tenderness. No CVA tenderness. UPPER EXTREMITIES: 2+ pulses, warm, well-perfused. No cyanosis. No clubbing. Cap refill <2 seconds. No peripheral edema. LOWER EXTREMITIES: 2+ pulses, warm, well-perfused. No calf tenderness. No peripheral edema. NEUROLOGICAL: intubated, sedated. Pt has spontaneous twitching movements. Unclear if myoclonus PSYCHIATRIC: intubated, sedated SKIN: Warm, dry, normal turgor, no rashes or lesions noted. Laboratory Results - last 24 hr 02/13/17 02/13/17 02/13/17 04:49 17:20 21:45 WBC 8.8 RBC 2.93 L Hgb 10.4 L Hct 31.6 L MCV 107.8 H MCH 35.4 H MCHC 32.8 RDW 13.4 Plt Count 95 L MPV 10.4 Neutrophils % 85.5 H Lymphocytes % 8.3 D Monocytes % 5.3 Eosinophils % 0.1 Basophils % 0.8 Sodium 134 L Potassium 2.6 L* Chloride 97 L Carbon Dioxide 29 Anion Gap 8 BUN 6 L D Creatinine 0.8 Creat Clearance w eGFR Random Glucose 106 Calcium 7.9 L Phosphorus 0.5 L* Magnesium 1.9 Total Bilirubin AST ALT Alkaline Phosphatase Total Protein Albumin Ur Leukocyte Esterase Negative 02/14/17 02/14/17 06:05 06:05 WBC 9.1 RBC 3.03 L Hgb 10.8 L Hct 32.7 L MCV 107.7 H MCH 35.7 H MCHC 33.1 RDW 13.8 Plt Count 108 L MPV 10.6 Neutrophils % 81.7 Lymphocytes % 11.3 D Monocytes % 6.0 Eosinophils % 0.5 D Basophils % 0.5 Sodium 139 Potassium 2.6 L* Chloride 99 Carbon Dioxide 30 Anion Gap 10 BUN 4 L D Creatinine 0.7 Creat Clearance w eGFR > 60 Random Glucose 109 H Calcium 8.0 L Phosphorus 1.5 L D Magnesium 1.8 Total Bilirubin 6.7 H D AST 245 H D ALT 136 H Alkaline Phosphatase 277 H Total Protein 6.2 L Albumin 2.5 L Ur Leukocyte Esterase Active Medications Generic Name Dose Route Start Last Admin Trade Name Freq PRN Reason Stop Dose Admin Propofol 1,000,000 mcg in 100 mls @ 2.517 mls/hr 02/13/17 06:15 02/14/17 07: 29 Diprivan - IVPB 61.17 mcg/kg/min TITR RODRIGO 30.8 mls/hr Protocol Titration 5 MCG/KG/MIN Fentanyl 500 mcg/ Dextrose 100 mls @ 0 mls/hr 02/14/17 08:00 02/14/17 08:28 IVPB 500 mls/hr TITR RODRIGO Administration Titrate Potassium Phosphate 30 mm/ 260 mls @ 43.333 mls/hr 02/14/17 09:00 02/14/17 09 :50 Sodium Chloride IVPB 02/14/17 14:59 43.333 mls/hr ONCE ONE Administration Potassium Chloride 40 meq/ 1,020 mls @ 1,000 mls/hr 02/14/17 11:49 Sodium Chloride IVPB 02/14/17 12:50 ASDIR STA Potassium Phos/Sodium Phos 1 packet 02/14/17 06:00 02/14/17 06:45 Phos-Nak Packet - PO Not Given TID RODRIGO Thiamine HCl 250 mg 02/13/17 18:15 02/14/17 09:51 Vitamin B1 Injection - IVPB 250 mg Q8H-IV RODRIGO Administration ASSESSMENT/PLAN: Pt is a 56M w/ extensive history of alcohol abuse with seizures and detox 6 mo ago. Last drink sometime in the last week. Pt came to ICU after having refractory seizures in ED requiring intubation and sedation. Neuro #EtOH withdrawal -Pt intubated and sedated for withdrawal seizures -Pt was on Keppra (not taken recently), so unclear if epileptic vs DT seizures -Propofol drip -Versed drip -Banana bag -Neuro recs: continue Versed. If pt develops seizures on versed, switch to Fosphenytoin. C/w thiamine. GI consult to r/o varices #Encephalopathy -ammonia level high at home. Pt has been taking lactulose as outpt -ammonia level above baseline in ICU. Decreasing GI #Hepatitis -transaminitis above his baseline -on LR -abd u/s pending #Pancreatitis -elevated lipase -abd u/s pending Pulm #Intubated and sedated -maintain intubation FEN -on NS -hypokalemia, hypophosphatemia, -NPO for now PPx -SCDs -Hep SubQ Dispo:Admitted to ICU. We will continue to follow the patient. Thank you for this consultative opportunity. Johnnie Fitzgerald MD PGY-1 ICU Visit type - Emergency Visit Emergency Visit: No - New Patient This patient is new to me today: No - Critical Care Critical Care patient: Yes Total Critical Care Time (in minutes): 39 Critical Care Statement: The care of this patient involved high complexity decision making to prevent further life threatening deterioration of the patient 's condition and/or to evaluate & treat vital organ system(s) failure or risk of failure. - Discharge Referral Referred to [facility] No
[2017-02-14 15:02] LABS: ARTERIAL BLD GAS O2 SATURATION 88.5 % (90-98.9); ARTERIAL BLOOD GAS BASE EXCESS 4.9 meq/l (-2-2); ARTERIAL BLOOD GAS HCO3 29.2 meq/L (22-26); ARTERIAL BLOOD GAS pH 7.44 (7.35-7.45)
[2017-02-14 15:04] LABS: ALLENS TEST POSITIVE; ART PUNCT SITE LEFT RADIAL; PT. ON O2? YES
--- NOTE | 2017-02-14 15:13 | PN ---
Progress Note (short form) - Note Progress Note: patient previously seen as a service case. Please inform GI button broacher. Thanks
--- NOTE | 2017-02-14 15:29 | PN ---
Progress Note (short form) - Note Progress Note: ID consult dictated Fever in 56 y/o alcoholic male admitted with seizures LFTs elevated Possible aspiration pneumonia ? Biliary tract disease/ alcoholic hepatitis Await c/s Empiric cefriaxone HIV test if status unknown
[2017-02-14] MEDS ORDERED: POTASSIUM CHLORIDE 40 MEQ in SODIUM CHLORIDE 1,000 ML IVPB ONE (15:30)
[2017-02-14] MEDS ORDERED: IBUPROFEN 400 MG TABLET (FP) PO ONE (15:46)
[2017-02-14] MEDS: CEFTRIAXONE 2 GM in DEXTROSE 5%-WATER - 100 ML IVPB SCH (17:52)
[2017-02-14] MEDS ORDERED: SODIUM CHLORIDE 1,000 ML IV STA (18:37)
--- NOTE | 2017-02-14 20:44 | CONS ---
DATE OF CONSULTATION: 02/14/2017 The patient is a 56-year-old male who is evaluated for fever. Patient has a history of chronic alcoholism and chronic alcoholic liver disease. He was brought in by EMS after he was found to be poorly responsive at home. He was noted to have witnessed generalized seizure activity. According to the notes he had been suffering from a recent upper respiratory tract infection and had a cough productive of whitish, blood-tinged sputum. He was evaluated in the emergency room where he was prophylactically intubated. He was admitted to the Intensive Care Unit and his course has now been complicated by fever to 101.9. He is sedated on the ventilator. No history of recent febrile illness or shaking chills. He did have a recent respiratory tract infection. No recent reports of abdominal pain, vomiting, or diarrhea. No recent reports of dysuria or hematuria. PAST MEDICAL HISTORY: The patient has a history of alcohol abuse and chronic liver disease. He had apparently been on lactulose prior to admission. He also has a history of hypertension and seizure disorder. PAST SURGICAL HISTORY: Status post resection of craniopharyngioma in 2006. ALLERGIES: No known allergies. SOCIAL HISTORY: Positive for alcohol abuse. His HIV status is not documented. SYSTEMS REVIEW: Neurologic: As per HPI. Cardiac: Negative for chest pain or palpitations. Respiratory: As per HPI. Gastrointestinal: As per HPI. Genitourinary: Negative for urinary tract infection. LABORATORY DATA: White count is 9.1, hematocrit 32.7, platelet count 108, BUN 4, creatinine 0.7, potassium is 2.6. Urinalysis is negative for leukocyte esterase. Cultures are pending. PHYSICAL EXAMINATION: General: He is sedated on the ventilator. Vital signs: Temperature 98.7, blood pressure 101.9, blood pressure 102/67, pulse 86 and regular, respirations 28 per minute. HEENT: Sclerae icteric. Patient is orally intubated. Heart: Sounds are tachycardic, S1, S2. Lungs: Air entry bilaterally. Abdomen: Soft, no tenderness elicited. Extremities: Negative for edema. IMPRESSION: Fever in a 56-year-old alcoholic male, admitted with seizures, noted to have elevated liver enzymes: 1. Possible aspiration pneumonia secondary to seizures and altered mentation. 2. Possible biliary tract disease versus alcoholic hepatitis. Await sepsis workup. Empiric antibiotic coverage with ceftriaxone. Monitor liver enzymes. Ventilatory support. I will follow. Thank you for the kind referral. SOLO HANSEN M.D. [id number]
--- NOTE | 2017-02-14 20:59 | PN ---
Progress Note (short form) - Note Progress Note: NEUROLOGY FOLLOW-UP: Events reviewed and discussed with Residents and RN. Briefly hypotensive today necessitating D/C of anesthesia. Pt woke up, agitated. Propofol reinstituted. Febrile today. On cefriaxone, empirically for presumed aspiration. No seizures noted. Exam: Thick mucous sputum in ET tube. + good spontaneous respirations Pt wakes up with his own respiratory effort and exhibits full roving EOM's, reactive pupils and withdraws all fours to pinch. IMP: Non-focal exam. Drug induced coma Alcohol-withdrawal seizure. SUGGEST: Continue thiamine Await GI service consult. Slowly taper propofol tomorrow while maintaining midazolam Rx. Continue antibiotics. Attempt slow midazolam taper on towards extubation. Thank you very much, Boris Ruiz MD
[2017-02-14 22:46] LABS: CALCIUM 7.5 mg/dL (8.5-10.1); CREATININE 0.8 mg/dL (0.7-1.3)
[2017-02-14] MEDS: IBUPROFEN 600 MG TABLET (FP) PO PRN (22:56)
--- NOTE | 2017-02-14 23:09 | PN ---
Progress Note, Physician - Current Medication List Current Medications: Active Medications Propofol (Diprivan -) 1,000,000 mcg in 100 mls @ 2.517 mls/hr IVPB TITR RODRIGO; 5 MCG/KG/MIN PRN Reason: Protocol Last Admin: 02/14/17 21:59 Dose: 18.66 mcg/kg/min, 9.4 mls/hr Fentanyl 500 mcg/ Dextrose 100 mls @ 0 mls/hr IVPB TITR RODRIGO PRN Reason: Titrate Last Admin: 02/14/17 08:28 Dose: 500 mls/hr Potassium Chloride 40 meq/ (Sodium Chloride) 1,020 mls @ 100 mls/hr IVPB ASDIR ONE Stop: 02/15/17 01:41 Last Admin: 02/14/17 16:56 Dose: 100 mls/hr Ceftriaxone Sodium 2 gm/ (Dextrose) 100 mls @ 200 mls/hr IVPB DAILY RODRIGO Last Admin: 02/14/17 17:52 Dose: 200 mls/hr Ibuprofen (Motrin -) 600 mg PO Q8H PRN PRN Reason: PAIN Last Admin: 02/14/17 22:56 Dose: 600 mg Potassium Phos/Sodium Phos (Phos-Nak Packet -) 1 packet PO TID RODRIGO Last Admin: 02/14/17 22:00 Dose: 1 packet Thiamine HCl (Vitamin B1 Injection -) 250 mg IVPB Q8H-IV RODRIGO Last Admin: 02/14/17 17:27 Dose: 250 mg - Objective Vital Signs: Vital Signs Temperature 101.2 F H 02/14/17 18:00 Pulse Rate 98 H 02/14/17 20:00 Respiratory Rate 19 02/14/17 22:37 Blood Pressure 124/92 02/14/17 20:00 O2 Sat by Pulse Oximetry (%) 97 02/14/17 11:22 Labs: CBC, BMP 02/14/17 06:05 02/14/17 21:30
[2017-02-15 01:17] LABS: MAGNESIUM 1.6 mg/dL (1.8-2.4); PHOSPHOROUS 2.9 mg/dL (2.5-4.9)
[2017-02-15] MEDS: THIAMINE HCL 200 MG/2 ML VIAL IVPB SCH ×3 (01:33→17:27)
[2017-02-15] MEDS ORDERED: fentaNYL CITRATE 250 MCG/5 ML VIAL ONE ×3 (01:43→20:08)
[2017-02-15] MEDS: FENTANYL INJECTION 500 MCG in DEXTROSE 5%-WATER - 90 ML IVPB SCH ×4 (02:00→19:30)
[2017-02-15] MEDS ORDERED: MAGNESIUM SULF 50% (8.12 MEQ/2 ML-1 GM VIAL) IVPB ONE ×2 (02:14→11:54)
[2017-02-15] MEDS: PROPOFOL 1,000,000 MCG/100 ML VIAL IVPB SCH ×4 (06:15→19:30)
[2017-02-15] MEDS: NAPH,MB-DB/K PH,MBDB POWDER PACKET PO SCH ×3 (06:17→21:54)
[2017-02-15 06:53] LABS: MCH 36.5 pg (25.7-33.7); MCHC 33.7 g/dl (32.0-35.9); MEAN PLT VOLUME 10.1 fl (7.5-11.1); PLATELET COUNT 123 K/MM3 (134-434); RDW 13.5 % (11.9-15.9); WHITE BLOOD COUNT 6.5 K/mm3 (4.0-10.0)
[2017-02-15 07:02] LABS: ALBUMIN 2.1 g/dl (3.4-5.0); ANION GAP 8 (8-16); BILIRUBIN,TOTAL 6.1 mg/dL (0.2-1.0); CALCIUM 7.6 mg/dL (8.5-10.1); CO2 28 mmol/L (21-32); CREATININE 0.7 mg/dL (0.7-1.3); GLUCOSE,RANDOM 80 mg/dL (74-106); MAGNESIUM 1.9 mg/dL (1.8-2.4); SGOT/AST 127 U/L (15-37); SGPT/ALT 91 U/L (12-78); TOT PROT 5.6 g/dl (6.4-8.2)
[2017-02-15 07:03] LABS: ALK PHOS 204 U/L (45-117)
[2017-02-15] MEDS ORDERED: PT OWN MED DRAWER 7, Y5N ONE (07:59)
[2017-02-15] MEDS ORDERED: KCL 10 MEQ IVPB 10 MEQ/100 ML INFUS.BAG IVPB SCH (09:00)
[2017-02-15] MEDS: CEFTRIAXONE 2 GM in DEXTROSE 5%-WATER - 100 ML IVPB SCH (09:28)
[2017-02-15] MEDS ORDERED: POTASSIUM CHLORIDE 30 MEQ in SODIUM CHLORIDE 300 ML IVPB ONE (09:30)
[2017-02-15] MEDS ORDERED: POTASSIUM CHLORIDE 20 MEQ in SODIUM CHLORIDE 250 ML IVPB ONE (09:30)
[2017-02-15 09:32] LABS: ANISOCYTOSIS 2+; BAND % 28.6 %; BASOPHIL %. 1.2 % (0-2.0); HYPOCHROMIA 0; MACROCYTOSIS 0; METAMYELOCYTE 0 % (0-2); MICROCYTOSIS 1+; MYELOCYTE 0 % (0-2); POIKILOCYTOSIS 0; POLYCHROMASIA 1+; REACTIVE LYMPHOCYTES 0 % (0-80)
--- NOTE | 2017-02-15 10:14 | CON.GI ---
Consult - History of Present Illness History of Present Illness: Chart reviewed. Events noted. The patient is in ICU, intubated and sedated. Per records: This 56 yo recently man with h/o HTN and seizure disorder has been treated at the [facility] but hasn't taken meds in some time. 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 Jack Flynn). Given seizure meds after this. H/O heavy drinking since his divorce. Apparently stopped drinking x few days prior to this admission. Admitted after LOC with apparently witnessed seizures. Sedated. On ventilatory support. No records of hematochezia, melena, hematemesis , or significant changers in hemoglobin level. Hemocult negative. OG clear. - History Source History Provided By: Medical Record Limitations to Obtaining History: Clinical Condition - Past Medical History [employer]RE[employer]ILD[employer]: Yes: Seizure Cardio/Vascular: Yes: HTN Hepatobiliary: Yes: Cirrhosis - Past Surgical History Past Surgical History: Yes: None - Alcohol/Substance Use Hx Alcohol Use: Yes History of Substance Use: reports: None (denies) - Smoking History Smoking history: Unknown if ever smoked Have you smoked in the past 12 months: No Aproximately how many cigarettes per day: 2 If you are a former smoker, when did you quit?: 2 years - Social History Usual Living Arrangement: Alone ADL: Independent (, normally seen at [facility] Home Medications - Allergies Allergies/Adverse Reactions: Allergies Allergy/AdvReac Type Severity Reaction Status Date / Time No Known Allergies Allergy Verified 02/13/17 03:27 - Home Medications Home Medications: Ambulatory Orders Amlodipine Besylate [Norvasc -] 5 mg PO DAILY #30 tablet 06/27/16 Folic Acid - 1 mg PO DAILY #30 tablet 06/27/16 Lactulose 20 gm PO DAILY #30 ml 06/27/16 Thiamine HCl [Vitamin B1 Injection -] 250 mg IVPB Q8H-IV #30 vial 06/27/16 Family Disease History - Family Disease History Family History: Unremarkable Review of Systems Findings/Remarks: as per H&P Physical Exam-GI Vital Signs: Vital Signs Temperature 100.1 F H 02/15/17 09:38 Pulse Rate 74 02/15/17 09:38 Respiratory Rate 14 02/15/17 09:38 Blood Pressure 131/90 02/15/17 09:38 O2 Sat by Pulse Oximetry (%) 98 02/15/17 08:00 Eyes: Yes: Conjunctiva Clear HENT: Yes: Atraumatic Neck: Yes: Supple Cardiovascular: Yes: Regular Rate and Rhythm Respiratory: Yes: Regular, CTA Bilaterally, Other (on vent support) Gastrointestinal Inspection: No: Ascites, Distention ...Palpate: Yes: Soft. No: Firm/Rigid, Mass, Pulsatile Mass ...Percussion: No: Fluid Wave, Tympanitic ...Rectal Exam: Yes: Deferred (done in ED) Neurological: Yes: Other (sedated) Labs: CBC, BMP 02/15/17 06:20 02/15/17 06:20 CBCD WBC 6.5 K/mm3 (4.0-10.0) 02/15/17 06:20 RBC 2.76 M/mm3 (4.00-5.60) L 02/15/17 06:20 Hgb 10.1 GM/dL (11.7-16.9) L 02/15/17 06:20 Hct 29.8 % (35.4-49) L 02/15/17 06:20 MCV 108.0 fl (80-96) H 02/15/17 06:20 MCHC 33.7 g/dl (32.0-35.9) 02/15/17 06:20 RDW 13.5 % (11.9-15.9) 02/15/17 06:20 Plt Count 123 K/MM3 (134-434) L 02/15/17 06:20 MPV 10.1 fl (7.5-11.1) 02/15/17 06:20 CMP Sodium 138 mmol/L (136-145) 02/15/17 06:20 Potassium 2.9 mmol/L (3.5-5.1) L* 02/15/17 06:20 Chloride 102 mmol/L (98-107) 02/15/17 06:20 Carbon Dioxide 28 mmol/L (21-32) 02/15/17 06:20 Anion Gap 8 (8-16) 02/15/17 06:20 BUN 5 mg/dL (7-18) L D 02/15/17 06:20 Creatinine 0.7 mg/dL (0.7-1.3) 12/13/17 06:20 Creat Clearance w eGFR > 60 (>60) 02/15/17 06:20 Calcium 7.6 mg/dL (8.5-10.1) L 02/15/17 06:20 Total Bilirubin 6.1 mg/dL (0.2-1.0) H 02/15/17 06:20 AST 127 U/L (15-37) H D 02/15/17 06:20 ALT 91 U/L (12-78) H D 02/15/17 06:20 Alkaline Phosphatase 204 U/L (45-117) H D 02/15/17 06:20 Total Protein 5.6 g/dl (6.4-8.2) L 02/15/17 06:20 Albumin 2.1 g/dl (3.4-5.0) L 02/15/17 06:20 Imaging - Results Ultrasound: Report Reviewed Problem List - Problems (1) Alcoholic liver disease, unspecified Code(s): K70.9 - ALCOHOLIC LIVER DISEASE, UNSPECIFIED Assessment/Plan A 56 yom with hx of seizures and ?recent onset of alcohol abuse in the ICU for seizure and ?alcohol withdrawal management. No signs of active, or resent GI bleeding, or decompensated liver disease. Blood work, imaging results and the history suggest a possibility of advanced liver disease, which will need to be evaluated closely once his acute, seizure-related issues are under control. Continue care as per ICU team Monitor liver enzymes, PT/INR, ALP, total and direct bili daily will follow d/w ICU resident
[2017-02-15 10:45] LABS: PLATELET COMMENTS PRESENT
[2017-02-15 10:46] LABS: PLATELET ESTIMATE DECREASED; TOTAL CELLS COUNTED 100
[2017-02-15] MEDS ORDERED: POTASSIUM CHLORIDE ORAL LIQUID 20 MEQ/15 ML PO ONE (11:54)
[2017-02-15] MEDS: MIDAZOLAM 100 MG in SODIUM CHLORIDE 100 ML IVPB SCH (12:00)
[2017-02-15] MEDS: IBUPROFEN 600 MG TABLET (FP) PO PRN (12:16)
--- NOTE | 2017-02-15 12:45 | PN ---
Teaching Attending Note Name of Resident: Johnnie Fitzgerald ATTENDING PHYSICIAN STATEMENT I saw and evaluated the patient. I reviewed the resident's note and discussed the case with the resident. I agree with the resident's findings and plan as documented. SUBJECTIVE: Pt seen and examined in the ICU. Remains intubated, sedated. Low grade fever this AM. OBJECTIVE: Last Vital Signs Temp Pulse Resp BP Pulse Ox 100.6 F H 89 14 143/85 98 02/15/17 12:06 02/15/17 12:06 02/15/17 12:06 02/15/17 12:06 02/15/17 10:34 Intake & Output 02/12/17 02/13/17 02/14/17 02/15/17 23:59 23:59 23:59 23:59 Intake Total 2801 4055.8 920 Output Total 4400 3900 700 Balance -1599 155.8 220 Weight 185 lb 171 lb 11.2 oz 171 lb 1.6 oz Gen: intubated, sedated Heart: RRR Lung: decreased breath sounds at the bases Abd: soft, nontender Ext: no edema CBC, BMP 02/15/17 06:20 02/15/17 06:20 Active Medications Propofol (Diprivan -) 1,000,000 mcg in 100 mls @ 2.517 mls/hr IVPB TITR RODRIGO; 5 MCG/KG/MIN PRN Reason: Protocol Last Admin: 02/15/17 10:02 Dose: 27.8 mcg/kg/min, 14 mls/hr Fentanyl 500 mcg/ Dextrose 100 mls @ 0 mls/hr IVPB TITR RODRIGO PRN Reason: Titrate Last Admin: 02/15/17 09:09 Dose: 10 mls/hr Ceftriaxone Sodium 2 gm/ (Dextrose) 100 mls @ 200 mls/hr IVPB DAILY RODRIGO Last Admin: 02/15/17 09:28 Dose: 200 mls/hr Potassium Chloride 30 meq/ (Sodium Chloride) 315 mls @ 88.333 mls/hr IVPB ONCE ONE Stop: 02/15/17 13:03 Last Admin: 02/15/17 10:01 Dose: 88.333 mls/hr Midazolam HCl 100 mg/ Sodium (Chloride) 100 mls @ 1 mls/hr IVPB TITR RODRIGO; 1 MG/ HR PRN Reason: Protocol Last Titration: 02/15/17 12:05 Dose: 6 mg/hr, 6 mls/hr Ibuprofen (Motrin -) 600 mg PO Q8H PRN PRN Reason: PAIN Last Admin: 02/15/17 12:16 Dose: 600 mg Potassium Phos/Sodium Phos (Phos-Nak Packet -) 1 packet PO TID RODRIGO Last Admin: 02/15/17 06:17 Dose: 1 packet Thiamine HCl (Vitamin B1 Injection -) 250 mg IVPB Q8H-IV RODRIGO Last Admin: 02/15/17 09:08 Dose: 250 mg ASSESSMENT AND PLAN: Acute Respiratory Failure Status Epilepticus Alcohol Abuse/Withdrawal Hypokalemia Thrombocytopenia r/o Pneumonia - continue antibiotics - replete lytes - lighten sedation to assess mental status - spontaneous breathing trials when mental status improved - enteral feeds - DVT/GI prophylaxis - continue ICU monitoring critical care time spent in reviewing chart, evaluating patient and formulating plan 35 min
[2017-02-15] MEDS ORDERED: BENZOIN/ALOE VERA/STORAX/TOLU 58 ML BOTTLE ONE (13:48)
[2017-02-15 17:07] LABS: ANION GAP 10 (8-16); CO2 24 mmol/L (21-32); CREATININE 0.7 mg/dL (0.7-1.3); GLUCOSE,RANDOM 78 mg/dL (74-106)
--- NOTE | 2017-02-15 17:21 | PN ---
Physical Exam: SUBJECTIVE: Patient seen and examined at bedside. BP stable. Low fevers. Intubated and sedated. Pt had fever last night for which cultures were drawn. No other events. OBJECTIVE: Vital Signs Period Temp Pulse Resp BP Sys/Mcbride Pulse Ox Last 24 Hr 99.5 F-101.8 F 74-98 12-21 80-144/51-92 98-98 GENERAL: intubated, sedated, in no acute distress. HEAD: Normal with no signs of trauma. EYES: sclera anicteric, conjunctiva clear. No lid lag. EARS, NOSE, THROAT: oropharynx clear without exudates. Moist mucous membranes. NECK: Normal range of motion, supple without lymphadenopathy, JVD, or masses. LUNGS: Breath sounds equal, clear to auscultation bilaterally. No wheezes, and no crackles. No accessory muscle use. HEART: Regular rate and rhythm, normal S1 and S2 without murmur, rub or gallop. ABDOMEN: Soft, not distended, normoactive bowel sounds, no guarding, no rebound , no masses. No hepatomegaly or splenomegaly. MUSCULOSKELETAL: Normal range of motion at all joints. No bony deformities or tenderness. No CVA tenderness. UPPER EXTREMITIES: 2+ pulses, warm, well-perfused. No cyanosis. No clubbing. Cap refill <2 seconds. No peripheral edema. LOWER EXTREMITIES: 2+ pulses, warm, well-perfused. No calf tenderness. No peripheral edema. NEUROLOGICAL: intubated, sedated. Pt has spontaneous twitching movements. Unclear if myoclonus PSYCHIATRIC: intubated, sedated SKIN: Warm, dry, normal turgor, no rashes or lesions noted. Laboratory Results - last 24 hr 02/14/17 02/14/17 02/14/17 21:00 21:00 21:30 WBC RBC Hgb Hct MCV MCH MCHC RDW Plt Count MPV Total Counted Neutrophils % Neutrophils % (Manual) Band Neutrophils % Lymphocytes % Lymphocytes % (Manual) Monocytes % (Manual) Eosinophils % (Manual) Basophils % (Manual) Myelocytes % (Man) Metamyelocytes Hypochromia Platelet Estimate Platelet Comment Polychromasia Poikilocytosis Anisocytosis Microcytosis Macrocytosis Sodium Cancelled 138 Potassium Cancelled 3.3 L D Chloride Cancelled 103 Carbon Dioxide Cancelled 28 Anion Gap Cancelled 7 L BUN Cancelled 3 L D Creatinine Cancelled 0.8 Creat Clearance w eGFR Random Glucose Cancelled 91 Calcium Cancelled 7.5 L Phosphorus 2.9 D Magnesium 1.6 L Total Bilirubin AST ALT Alkaline Phosphatase Ammonia Total Protein Albumin 02/15/17 02/15/17 02/15/17 06:20 06:20 06:20 WBC 6.5 RBC 2.76 L Hgb 10.1 L Hct 29.8 L MCV 108.0 H MCH 36.5 H MCHC 33.7 RDW 13.5 Plt Count 123 L MPV 10.1 Total Counted 100 Neutrophils % No Result Required. Neutrophils % (Manual) 44.0 Band Neutrophils % 28.6 Lymphocytes % No Result Required. Lymphocytes % (Manual) 16.7 Monocytes % (Manual) 8 Eosinophils % (Manual) 1.2 Basophils % (Manual) 1.2 Myelocytes % (Man) 0 Metamyelocytes 0 Hypochromia 0 Platelet Estimate Decreased Platelet Comment Present Polychromasia 1+ Poikilocytosis 0 Anisocytosis 2+ Microcytosis 1+ Macrocytosis 0 Sodium 138 Potassium 2.9 L* Chloride 102 Carbon Dioxide 28 Anion Gap 8 BUN 5 L D Creatinine 0.7 Creat Clearance w eGFR > 60 Random Glucose 80 Calcium 7.6 L Phosphorus 3.0 Magnesium 1.9 Total Bilirubin 6.1 H AST 127 H D ALT 91 H D Alkaline Phosphatase 204 H D Ammonia 24.01 Total Protein 5.6 L Albumin 2.1 L 02/15/17 16:00 WBC RBC Hgb Hct MCV MCH MCHC RDW Plt Count MPV Total Counted Neutrophils % Neutrophils % (Manual) Band Neutrophils % Lymphocytes % Lymphocytes % (Manual) Monocytes % (Manual) Eosinophils % (Manual) Basophils % (Manual) Myelocytes % (Man) Metamyelocytes Hypochromia Platelet Estimate Platelet Comment Polychromasia Poikilocytosis Anisocytosis Microcytosis Macrocytosis Sodium 138 Potassium 3.5 D Chloride 104 Carbon Dioxide 24 Anion Gap 10 BUN 6 L Creatinine 0.7 Creat Clearance w eGFR Random Glucose 78 Calcium 8.0 L Phosphorus Magnesium Total Bilirubin AST ALT Alkaline Phosphatase Ammonia Total Protein Albumin Active Medications Generic Name Dose Route Start Last Admin Trade Name Freq PRN Reason Stop Dose Admin Propofol 1,000,000 mcg in 100 mls @ 2.517 mls/hr 02/13/17 06:15 02/15/17 16: 16 Diprivan - IVPB 27.8 mcg/kg/min TITR RODRIGO 14 mls/hr Protocol Administration 5 MCG/KG/MIN Fentanyl 500 mcg/ Dextrose 100 mls @ 0 mls/hr 02/14/17 08:00 02/15/17 09:09 IVPB 10 mls/hr TITR RODRIGO Administration Titrate Ceftriaxone Sodium 2 gm/ 100 mls @ 200 mls/hr 02/14/17 15:45 02/15/17 09:28 Dextrose IVPB 200 mls/hr DAILY RODRIGO Administration Midazolam HCl 100 mg/ Sodium 100 mls @ 1 mls/hr 02/15/17 12:00 02/15/17 12:05 Chloride IVPB 6 mg/hr TITR RODRIGO 6 mls/hr Protocol Titration 1 MG/HR Ibuprofen 600 mg 02/14/17 21:55 02/15/17 12:16 Motrin - PO 600 mg Q8H PRN Administration PAIN Potassium Phos/Sodium Phos 1 packet 02/14/17 06:00 02/15/17 13:59 Phos-Nak Packet - PO 1 packet TID RODRIGO Administration Thiamine HCl 250 mg 02/13/17 18:15 02/15/17 09:08 Vitamin B1 Injection - IVPB 250 mg Q8H-IV RODRIGO Administration ASSESSMENT/PLAN: Pt is a 56M w/ extensive history of alcohol abuse with seizures and detox 6 mo ago. Last drink sometime in the last week. Pt came to ICU after having refractory seizures in ED requiring intubation and sedation. Neuro #EtOH withdrawal -Pt intubated and sedated for withdrawal seizures -Pt was on Keppra (not taken recently), so unclear if epileptic vs DT seizures -Propofol drip. weaning trials. As of yet, not well tolerated. -Versed drip -Fentanyl -Banana bag -Neuro recs: continue Versed. If pt develops seizures on versed, switch to Fosphenytoin. C/w thiamine. GI consult to r/o varices #Encephalopathy -ammonia level high at home. Pt has been taking lactulose as outpt -ammonia level above baseline in ICU. Normal level GI #Hepatitis -transaminitis above his baseline -abd u/s hepatomegally #Pancreatitis -elevated lipase -abd u/s hepatomegally Pulm #Intubated and sedated -maintain intubation FEN -on NS -hypokalemia, hypophosphatemia. repleting -NPO for now PPx -SCDs -Hep SubQ Dispo:Admitted to ICU. We will continue to follow the patient. Thank you for this consultative opportunity. Johnnie Fitzgerald MD PGY-1 ICU Visit type - Emergency Visit Emergency Visit: No - New Patient This patient is new to me today: No - Critical Care Critical Care patient: Yes Total Critical Care Time (in minutes): 47 Critical Care Statement: The care of this patient involved high complexity decision making to prevent further life threatening deterioration of the patient 's condition and/or to evaluate & treat vital organ system(s) failure or risk of failure. - Discharge Referral Referred to [facility] No
--- NOTE | 2017-02-15 19:30 | PN ---
Progress Note (short form) - Note Progress Note: NEUROLOGY F/U: Still on Propofol and midazolam. No seizures noted. +Spontaneous respirations. Opens eyes to sternal pressure with full roving EOM's. Grimaces to pinch all 4's IMP: Non-focal exam ETOH withdrawal seizure Drug induced coma SUGGEST: Taper and D/C propofol and observe. Then slowly taper and D/C Midazolam. Doubt he will need extended anti-seizzure Rx. Thank you very much, Boris Ruiz MD
--- NOTE | 2017-02-15 23:40 | PN ---
Progress Note, Physician - Current Medication List Current Medications: Active Medications Propofol (Diprivan -) 1,000,000 mcg in 100 mls @ 2.517 mls/hr IVPB TITR RODRIGO; 5 MCG/KG/MIN PRN Reason: Protocol Last Admin: 02/15/17 16:16 Dose: 27.8 mcg/kg/min, 14 mls/hr Fentanyl 500 mcg/ Dextrose 100 mls @ 0 mls/hr IVPB TITR RODRIGO PRN Reason: Titrate Last Admin: 02/15/17 09:09 Dose: 10 mls/hr Ceftriaxone Sodium 2 gm/ (Dextrose) 100 mls @ 200 mls/hr IVPB DAILY RODRIGO Last Admin: 02/15/17 09:28 Dose: 200 mls/hr Midazolam HCl 100 mg/ Sodium (Chloride) 100 mls @ 1 mls/hr IVPB TITR RODRIGO; 1 MG/ HR PRN Reason: Protocol Last Titration: 02/15/17 12:05 Dose: 6 mg/hr, 6 mls/hr Ibuprofen (Motrin -) 600 mg PO Q8H PRN PRN Reason: PAIN Last Admin: 02/15/17 12:16 Dose: 600 mg Potassium Phos/Sodium Phos (Phos-Nak Packet -) 1 packet PO TID RODRIGO Last Admin: 02/15/17 21:54 Dose: 1 packet Thiamine HCl (Vitamin B1 Injection -) 250 mg IVPB Q8H-IV RODRIGO Last Admin: 02/15/17 17:27 Dose: 250 mg - Objective Vital Signs: Vital Signs Temperature 99.9 F H 02/15/17 18:00 Pulse Rate 79 02/15/17 18:00 Respiratory Rate 15 02/15/17 21:30 Blood Pressure 142/85 02/15/17 18:00 O2 Sat by Pulse Oximetry (%) 99 02/15/17 21:00 Labs: CBC, BMP 02/15/17 06:20 02/15/17 16:00
[2017-02-16] MEDS ORDERED: fentaNYL CITRATE 250 MCG/5 ML VIAL ONE (01:28)
[2017-02-16] MEDS: THIAMINE HCL 200 MG/2 ML VIAL IVPB SCH ×3 (01:35→20:46)
[2017-02-16] MEDS: MIDAZOLAM 100 MG in SODIUM CHLORIDE 100 ML IVPB SCH (01:53)
[2017-02-16 07:05] LABS: BASO % 0.8 % (0-2.0); EOS % 0.9 % (0-4.5); MCH 34.6 pg (25.7-33.7); MCHC 32.3 g/dl (32.0-35.9); MEAN CELL VOLUME 107.2 fl (80-96); MEAN PLT VOLUME 9.1 fl (7.5-11.1); NEUT % 66.5 % (42.8-82.8); PLATELET COUNT 181 K/MM3 (134-434); RDW 14.3 % (11.9-15.9); WHITE BLOOD COUNT 10.1 K/mm3 (4.0-10.0)
[2017-02-16 07:20] LABS: ALBUMIN 1.9 g/dl (3.4-5.0); ANION GAP 10 (8-16); CALCIUM 7.9 mg/dL (8.5-10.1); CO2 26 mmol/L (21-32); CREATININE 0.6 mg/dL (0.7-1.3); GLUCOSE,RANDOM 88 mg/dL (74-106); MAGNESIUM 2.3 mg/dL (1.8-2.4); PHOSPHOROUS 2.5 mg/dL (2.5-4.9); SGOT/AST 116 U/L (15-37); SGPT/ALT 76 U/L (12-78)
[2017-02-16 07:21] LABS: ALK PHOS 216 U/L (45-117); BILIRUBIN,TOTAL 5.1 mg/dL (0.2-1.0)
[2017-02-16] MEDS: IBUPROFEN 600 MG TABLET (FP) PO PRN (07:29)
[2017-02-16] MEDS: PROPOFOL 1,000,000 MCG/100 ML VIAL IVPB SCH (07:30)
[2017-02-16] MEDS: NAPH,MB-DB/K PH,MBDB POWDER PACKET PO SCH ×3 (07:52→21:14)
[2017-02-16] MEDS ORDERED: SODIUM CHLORIDE IVPB ONE (08:26)
[2017-02-16] MEDS ORDERED: POTASSIUM PHOSPHATE IVPB ONE (08:26)
[2017-02-16] MEDS ORDERED: KCL 10 MEQ IVPB 10 MEQ/100 ML INFUS.BAG IVPB SCH (08:30)
[2017-02-16] MEDS ORDERED: POTASSIUM PHOSPHATE 30 MM in SODIUM CHLORIDE 250 ML IVPB ONE (08:41)
[2017-02-16] MEDS ORDERED: POTASSIUM CHLORIDE 30 MEQ in SODIUM CHLORIDE 300 ML IVPB ONE (09:00)
[2017-02-16] MEDS: CEFTRIAXONE 2 GM in DEXTROSE 5%-WATER - 100 ML IVPB SCH (09:29)
[2017-02-16] MEDS ORDERED: POTASSIUM CHLORIDE 20 MEQ PREMIX IVPB 100 ML IVPB ONE (11:46)
--- NOTE | 2017-02-16 11:48 | PN ---
Physical Exam: SUBJECTIVE: Patient seen and examined Patient resting in bed, fever 101.3, hemodynamically stable. taken off all sedation this morning and successfully extubated. Tolerating nonrebreather at 50 % fio2, will wean further. responds appropriately. had a lot of respiratory secretions, cough. Will assess mental status in a few hours once patient is reoriented. denies sob, cp, abd pain, n/v, h/a. OBJECTIVE: Vital Signs Period Temp Pulse Resp BP Sys/Mcbride Pulse Ox Last 24 Hr 98.7 F-101.5 F 69-94 14-18 102-150/67-91 97-99 GENERAL: The patient is awake, alert, oriented to self, still under mild sedation from residual versed HEAD: Normal with no signs of trauma. EYES: PERRL, extraocular movements intact, sclera anicteric, conjunctiva clear. No ptosis. ENT: moist mucous membranes. NECK: supple, no jvd. LUNGS: Breath sounds equal, left base crackles HEART: Regular rate and rhythm, S1, S2 ABDOMEN: Soft, nontender, nondistended, normoactive bowel sounds, no guarding, no rebound, no mass EXTREMITIES: 2+ pulses, warm, well-perfused, trace edema. NEUROLOGICAL: Cranial nerves II through XII grossly intact. PSYCH: somewhat confused SKIN: Warm, dry Laboratory Results - last 24 hr 02/13/17 02/15/17 02/16/17 03:37 16:00 05:35 WBC 10.1 H D RBC 2.82 L Hgb 9.7 L Hct 30.2 L MCV 107.2 H MCH 34.6 H MCHC 32.3 RDW 14.3 Plt Count 181 D MPV 9.1 Neutrophils % 66.5 Lymphocytes % 13.1 Monocytes % 18.7 H D Eosinophils % 0.9 Basophils % 0.8 Sodium 138 Potassium 3.5 D Chloride 104 Carbon Dioxide 24 Anion Gap 10 BUN 6 L Creatinine 0.7 Creat Clearance w eGFR Random Glucose 78 Calcium 8.0 L Phosphorus Magnesium Total Bilirubin AST ALT Alkaline Phosphatase Total Protein Albumin Ethylene Glycol None detected 02/16/17 05:35 WBC RBC Hgb Hct MCV MCH MCHC RDW Plt Count MPV Neutrophils % Lymphocytes % Monocytes % Eosinophils % Basophils % Sodium 138 Potassium 3.2 L Chloride 102 Carbon Dioxide 26 Anion Gap 10 BUN 7 Creatinine 0.6 L Creat Clearance w eGFR > 60 Random Glucose 88 Calcium 7.9 L Phosphorus 2.5 Magnesium 2.3 D Total Bilirubin 5.1 H AST 116 H ALT 76 Alkaline Phosphatase 216 H Total Protein 6.0 L Albumin 1.9 L Ethylene Glycol Active Medications Generic Name Dose Route Start Last Admin Trade Name Diegoq PRN Reason Stop Dose Admin Propofol 1,000,000 mcg in 100 mls @ 2.517 mls/hr 02/13/17 06:15 02/16/17 07: 30 Diprivan - IVPB 50 mcg/kg/min TITR RODRIGO 25.175 mls/hr Protocol Administration 5 MCG/KG/MIN Fentanyl 500 mcg/ Dextrose 100 mls @ 0 mls/hr 02/14/17 08:00 02/15/17 19:30 IVPB 10 mls/hr TITR RODRIGO Administration Titrate Ceftriaxone Sodium 2 gm/ 100 mls @ 200 mls/hr 02/14/17 15:45 02/16/17 09:29 Dextrose IVPB 200 mls/hr DAILY RODRIGO Administration Midazolam HCl 100 mg/ Sodium 100 mls @ 1 mls/hr 02/15/17 12:00 02/16/17 01:53 Chloride IVPB 6 mg/hr TITR RODRIGO 6 mls/hr Protocol Administration 1 MG/HR Potassium Phosphate 30 mm/ 260 mls @ 62.5 mls/hr 02/16/17 08:41 Sodium Chloride IVPB 02/16/17 12:35 ONCE ONE Potassium Chloride 30 meq/ 315 mls @ 88.333 mls/hr 02/16/17 09:00 Sodium Chloride IVPB 02/16/17 12:33 ONCE ONE Ibuprofen 600 mg 02/14/17 21:55 02/16/17 07:29 Motrin - PO 600 mg Q8H PRN Administration PAIN Potassium Chloride 30 meq 02/16/17 11:46 Potassium Chloride 20 Meq Premix Ivpb - IVPB 02/16/17 11:47 ONCE ONE Potassium Phos/Sodium Phos 1 packet 02/14/17 06:00 02/16/17 07:52 Phos-Nak Packet - PO 1 packet TID RODRIGO Administration Thiamine HCl 250 mg 02/13/17 18:15 02/16/17 09:29 Vitamin B1 Injection - IVPB 250 mg Q8H-IV RODRIOG Administration ASSESSMENT/PLAN: Pt is a 56 yo M with extensive history of alcohol abuse with seizures and detox 6 mo ago. Last drink sometime in the last week. Pt came to ICU after having refractory seizures in ED requiring intubation and sedation. Neuro *EtOH withdrawal -Pt was on Keppra (not taken recently), so unclear if epileptic vs DT seizures -off sedation and extubated. Neuro assessment to follow reorientation later this afternoon -restart keppra per neurology recs *Encephalopathy -ammonia level (elevated due to chronic liver disease)normalized GI *Hepatitis -transaminitis above his baseline -abd u/s hepatomegaly, fatty liver -gi consult outpatient Pulm -extubated -tolerating ventimask -nebs prn *Sepsis respiratory source -copirous secretions -CXR possible LLL PNA -rocephin coverage -IVF FEN -on NS -hypokalemia repleating -swallow eval PPx -SCDs -Hep SubQ Dispo: ICU Problem List - Problems (1) Alcohol withdrawal seizure Code(s): F10.239 - ALCOHOL DEPENDENCE WITH WITHDRAWAL, UNSPECIFIED; R56.9 - UNSPECIFIED CONVULSIONS Qualifiers: Complication of substance-induced condition: with unspecified complication Qualified Code(s): F10.239 - Alcohol dependence with withdrawal, unspecified; R56.9 - Unspecified convulsions; R56.9 - Unspecified convulsions; R56.9 - Unspecified convulsions; R56.9 - Unspecified convulsions (2) Alcoholic liver disease, unspecified Code(s): K70.9 - ALCOHOLIC LIVER DISEASE, UNSPECIFIED (3) Dehydration Code(s): E86.0 - DEHYDRATION (4) Hepatitis Code(s): K75.9 - INFLAMMATORY LIVER DISEASE, UNSPECIFIED (5) Hypokalemia Code(s): E87.6 - HYPOKALEMIA (6) Respiratory failure Code(s): J96.90 - RESPIRATORY FAILURE, UNSP, UNSP W HYPOXIA OR HYPERCAPNIA Qualifiers: Chronicity: unspecified Respiratory failure complication: unspecified whether with hypoxia or hypercapnia Qualified Code(s): J96.90 - Respiratory failure, unspecified, unspecified whether with hypoxia or hypercapnia (7) Seizure Code(s): R56.9 - UNSPECIFIED CONVULSIONS (8) Abnormal LFTs (liver function tests) Code(s): R79.89 - OTHER SPECIFIED ABNORMAL FINDINGS OF BLOOD CHEMISTRY (9) Alcohol dependence with uncomplicated withdrawal Code(s): F10.230 - ALCOHOL DEPENDENCE WITH WITHDRAWAL, UNCOMPLICATED (10) Alcohol dependence with withdrawal Code(s): F10.239 - ALCOHOL DEPENDENCE WITH WITHDRAWAL, UNSPECIFIED Qualifiers: Complication of substance-induced condition: uncomplicated Qualified Code(s ): F10.230 - Alcohol dependence with withdrawal, uncomplicated (11) Alcohol withdrawal delirium Code(s): F10.231 - ALCOHOL DEPENDENCE WITH WITHDRAWAL DELIRIUM (12) Alcoholism Code(s): F10.20 - ALCOHOL DEPENDENCE, UNCOMPLICATED Visit type - Emergency Visit Emergency Visit: No - New Patient This patient is new to me today: Yes Date on this admission: 02/16/17 - Critical Care Critical Care patient: Yes Total Critical Care Time (in minutes): 35 Critical Care Statement: The care of this patient involved high complexity decision making to prevent further life threatening deterioration of the patient 's condition and/or to evaluate & treat vital organ system(s) failure or risk of failure. - Discharge Referral Referred to [facility] Med [facility] No
--- NOTE | 2017-02-16 12:31 | PN ---
Teaching Attending Note Name of Resident: Alyssa Edmond ATTENDING PHYSICIAN STATEMENT I saw and evaluated the patient. I reviewed the resident's note and discussed the case with the resident. I agree with the resident's findings and plan as documented. SUBJECTIVE: Patient seen and examined in the ICU. Intubated and sedated. No pressors. AC Mode of vent. No seizure activity. Intake & Output 02/13/17 02/14/17 02/15/17 02/16/17 23:59 23:59 23:59 23:59 Intake Total 2801 4055.8 2200 578.2 Output Total 4400 3900 1550 500 Balance -1599 155.8 650 78.2 Weight 185 lb 171 lb 11.2 oz 171 lb 1.6 oz 172 lb Last Vital Signs Temp Pulse Resp BP Pulse Ox 98.7 F 73 14 102/67 99 02/16/17 10:00 02/16/17 10:00 02/16/17 10:00 02/16/17 10:00 02/16/17 09:00 Active Medications Propofol (Diprivan -) 1,000,000 mcg in 100 mls @ 2.517 mls/hr IVPB TITR RODRIGO; 5 MCG/KG/MIN PRN Reason: Protocol Last Admin: 02/16/17 07:30 Dose: 50 mcg/kg/min, 25.175 mls/hr Fentanyl 500 mcg/ Dextrose 100 mls @ 0 mls/hr IVPB TITR RODRIGO PRN Reason: Titrate Last Admin: 02/15/17 19:30 Dose: 10 mls/hr Ceftriaxone Sodium 2 gm/ (Dextrose) 100 mls @ 200 mls/hr IVPB DAILY RODRIGO Last Admin: 02/16/17 09:29 Dose: 200 mls/hr Midazolam HCl 100 mg/ Sodium (Chloride) 100 mls @ 1 mls/hr IVPB TITR RODRIGO; 1 MG/ HR PRN Reason: Protocol Last Admin: 02/16/17 01:53 Dose: 6 mg/hr, 6 mls/hr Potassium Phosphate 30 mm/ (Sodium Chloride) 260 mls @ 62.5 mls/hr IVPB ONCE ONE Stop: 02/16/17 12:35 Potassium Chloride 30 meq/ (Sodium Chloride) 315 mls @ 88.333 mls/hr IVPB ONCE ONE Stop: 02/16/17 12:33 Ibuprofen (Motrin -) 600 mg PO Q8H PRN PRN Reason: PAIN Last Admin: 02/16/17 07:29 Dose: 600 mg Potassium Chloride (Potassium Chloride 20 Meq Premix Ivpb -) 30 meq IVPB ONCE ONE Stop: 02/16/17 11:47 Potassium Phos/Sodium Phos (Phos-Nak Packet -) 1 packet PO TID RODRIGO Last Admin: 02/16/17 07:52 Dose: 1 packet Thiamine HCl (Vitamin B1 Injection -) 250 mg IVPB Q8H-IV RODRIGO Last Admin: 02/16/17 09:29 Dose: 250 mg Constitutional: Yes: Intubated and sedated Eyes: Yes: PERRL, Sclera Icterus, Other (perioorbital and sceral edema) HENT: Yes: WNL, Atraumatic, Normocephalic. No: Drooling, Epistaxis Neck: Yes: WNL, Supple, Trachea Midline Cardiovascular: Yes: WNL, Regular Rate and Rhythm, Tachycardia. No: Gallop, Murmur, S3, S4 Respiratory: Yes: Intubated, Scattered rhonchi Gastrointestinal: Yes: WNL, Normal Bowel Sounds, Soft. No: Tenderness, Rebound ...Rectal Exam: Yes: WNL Renal/: Yes: WNL, Shields Present. No: Bladder Distention, Hematuria Breast(s): Yes: WNL Musculoskeletal: Yes: WNL Extremities: Yes: WNL Edema: No Peripheral Pulses WNL: Yes Integumentary: Yes: WNL Neurological: Yes: Sedated on propofol drip, no seizure Labs: Laboratory Results - last 24 hr 02/13/17 02/15/17 02/16/17 03:37 16:00 05:35 WBC 10.1 H D RBC 2.82 L Hgb 9.7 L Hct 30.2 L MCV 107.2 H MCH 34.6 H MCHC 32.3 RDW 14.3 Plt Count 181 D MPV 9.1 Neutrophils % 66.5 Lymphocytes % 13.1 Monocytes % 18.7 H D Eosinophils % 0.9 Basophils % 0.8 Sodium 138 Potassium 3.5 D Chloride 104 Carbon Dioxide 24 Anion Gap 10 BUN 6 L Creatinine 0.7 Creat Clearance w eGFR Random Glucose 78 Calcium 8.0 L Phosphorus Magnesium Total Bilirubin AST ALT Alkaline Phosphatase Total Protein Albumin Ethylene Glycol None detected 02/16/17 05:35 WBC RBC Hgb Hct MCV MCH MCHC RDW Plt Count MPV Neutrophils % Lymphocytes % Monocytes % Eosinophils % Basophils % Sodium 138 Potassium 3.2 L Chloride 102 Carbon Dioxide 26 Anion Gap 10 BUN 7 Creatinine 0.6 L Creat Clearance w eGFR > 60 Random Glucose 88 Calcium 7.9 L Phosphorus 2.5 Magnesium 2.3 D Total Bilirubin 5.1 H AST 116 H ALT 76 Alkaline Phosphatase 216 H Total Protein 6.0 L Albumin 1.9 L Ethylene Glycol Problem List - Problems (1) Alcohol withdrawal seizure Code(s): F10.239 - ALCOHOL DEPENDENCE WITH WITHDRAWAL, UNSPECIFIED; R56.9 - UNSPECIFIED CONVULSIONS Qualifiers: Complication of substance-induced condition: with unspecified complication Qualified Code(s): F10.239 - Alcohol dependence with withdrawal, unspecified; R56.9 - Unspecified convulsions; R56.9 - Unspecified convulsions; R56.9 - Unspecified convulsions; R56.9 - Unspecified convulsions (2) Alcoholic liver disease, unspecified Code(s): K70.9 - ALCOHOLIC LIVER DISEASE, UNSPECIFIED (3) Respiratory failure Code(s): J96.90 - RESPIRATORY FAILURE, UNSP, UNSP W HYPOXIA OR HYPERCAPNIA Qualifiers: Chronicity: unspecified Respiratory failure complication: unspecified whether with hypoxia or hypercapnia Qualified Code(s): J96.90 - Respiratory failure, unspecified, unspecified whether with hypoxia or hypercapnia (4) Seizure Code(s): R56.9 - UNSPECIFIED CONVULSIONS (5) Abnormal LFTs (liver function tests) Code(s): R79.89 - OTHER SPECIFIED ABNORMAL FINDINGS OF BLOOD CHEMISTRY Assessment/Plan D/C sedation AEDs VTE prophylaxis Thiamine MVI ABX per ID ICU monitoring Wean trials and with hopes of extubation Dr Davis Critical care time spent in reviewing chart, evaluating patient and formulating plan - 40 minutes.
--- NOTE | 2017-02-16 13:47 | PN ---
Progress Note, Physician History of Present Illness: Extubated ++ thick resp secretions, audibly congested Remains febrile CXR increased L infiltrate WBC slightly elevated, plt improved - Current Medication List Current Medications: Active Medications Propofol (Diprivan -) 1,000,000 mcg in 100 mls @ 2.517 mls/hr IVPB TITR RODRIGO; 5 MCG/KG/MIN PRN Reason: Protocol Last Admin: 02/16/17 07:30 Dose: 50 mcg/kg/min, 25.175 mls/hr Fentanyl 500 mcg/ Dextrose 100 mls @ 0 mls/hr IVPB TITR RODRIGO PRN Reason: Titrate Last Admin: 02/15/17 19:30 Dose: 10 mls/hr Ceftriaxone Sodium 2 gm/ (Dextrose) 100 mls @ 200 mls/hr IVPB DAILY RODRIGO Last Admin: 02/16/17 09:29 Dose: 200 mls/hr Midazolam HCl 100 mg/ Sodium (Chloride) 100 mls @ 1 mls/hr IVPB TITR RODRIGO; 1 MG/ HR PRN Reason: Protocol Last Admin: 02/16/17 01:53 Dose: 6 mg/hr, 6 mls/hr Ibuprofen (Motrin -) 600 mg PO Q8H PRN PRN Reason: PAIN Last Admin: 02/16/17 07:29 Dose: 600 mg Potassium Chloride (Potassium Chloride 20 Meq Premix Ivpb -) 30 meq IVPB ONCE ONE Stop: 02/16/17 11:47 Potassium Phos/Sodium Phos (Phos-Nak Packet -) 1 packet PO TID RODRIGO Last Admin: 02/16/17 07:52 Dose: 1 packet Thiamine HCl (Vitamin B1 Injection -) 250 mg IVPB Q8H-IV RODRIGO Last Admin: 02/16/17 09:29 Dose: 250 mg - Objective Vital Signs: Vital Signs Temperature 98.7 F 02/16/17 10:00 Pulse Rate 73 02/16/17 10:00 Respiratory Rate 14 02/16/17 10:00 Blood Pressure 102/67 02/16/17 10:00 O2 Sat by Pulse Oximetry (%) 99 02/16/17 09:00 Constitutional: Yes: No Distress, Other (extubated) Eyes: Yes: Sclera Icterus Cardiovascular: Yes: Regular Rate and Rhythm, S1, S2 Respiratory: Yes: Rhonchi Gastrointestinal: Yes: Normal Bowel Sounds, Soft. No: Tenderness Labs: CBC, BMP 02/16/17 05:35 Assessment/Plan Probable aspiration pneumonia S/P extubation S/P seizures Will reculture In light of continue fever and worsening CXR will broaden coverage Start Zosyn
[2017-02-16] MEDS ORDERED: PIPERACILLIN/TAZOB 3.375 GM 50 ML IVPB SCH (14:00)
[2017-02-16 14:14] LABS: ANION GAP 7 (8-16); CALCIUM 8.6 mg/dL (8.5-10.1); CO2 27 mmol/L (21-32); CREATININE 0.8 mg/dL (0.7-1.3); GLUCOSE,RANDOM 95 mg/dL (74-106)
[2017-02-16] MEDS: PIPERACILLIN/TAZOB 3.375 GM 3.375 GM in DEXTROSE 5%-WATER - 50 ML IVPB SCH ×2 (16:00→19:16)
[2017-02-16] MEDS ORDERED: SODIUM CHLORIDE 1,000 ML IV SCH (16:30)
--- NOTE | 2017-02-16 17:35 | CONSULT ---
Admitting History and Physical - Primary Care Physician PCP: Malika Neri - Admission History of Present Illness: Per EMR: This 56 yo recently man with h/o HTN and seizure disorder [facility] store receiving specialist s/p resection of craniopharyngioma 2006 (Dr. Jack Flynn). Given seizure meds after this. H/O heavy drinking since his divorce. Apparently stopped drinking x few days prior to this admission. Admitted after LOC with apparently witnessed seizures. Intubated.Was on ventilatory support. Extubated at 1 pm today. 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 Cardiovascular: Yes: HTN Hepatobiliary: Yes: Cirrhosis - Past Surgical History Past Surgical History: Yes: None - Smoking History Smoking history: Unknown if ever smoked Have you smoked in the past 12 months: No Aproximately how many cigarettes per day: 2 If you are a former smoker, when did you quit?: 2 years - Alcohol/Substance Use Hx Alcohol Use: Yes History of Substance Use: reports: None (denies) - Social History ADL: Independent (, normally seen at [facility] History - Admission Reason For Visit: ABNORMAL LIVER FUNCTION TESTS,ALCOHOLISM, - Diagnostics X-ray: Report Reviewed CT Scan: Report Reviewed - General Mental Status: Awake and Alert, Able to Follow Commands Ability to Follow Directions: Fair Head/Neck Control: Fair - Hearing Hearing: Functional Speech Evaluation - Communication Primary Language: MACEDONIAN Communication: Yes: Simple Responses - Speech Production Intelligibility: Yes: Mildly Impaired, Moderately Impaired - Speech Characteristics Voice Loudness: Mildly Soft/Quiet, Moderately Soft/Quiet Voice Pitch: Yes: Normal Voice Phonatory-based Quality: Yes: Dysphonia, Vocal Wetness Nasal Resonance: Normal Articulation: Yes: Precise - Language/Auditory Comprehension Follows: Yes: 1 Stage Simple Commands - Swallow Evaluation/Bedside Assessment Current Nutritional Intake: NPO Facial Symmetry at Rest: Symmetrical Facial Symmetry on Retraction: Symmetrical (swollen. reduced ROM) Pucker Lips: Normal (swollen. reduced ROM) Smile: Normal (swollen. reduced ROM) Lingual Movement: Symmetric Lingual Speed of Movement: Normal Laryngeal Elevation: Impaired Laryngeal Movement: Reduced Excursion, Labored,delay initiation, Reduced Velocity Oral Prep Time: Increased A-P Transit: Impaired Timing of Swallow: Delayed Coughing/Throat Clear: Yes (on pureed trial) Recommendations - Speech Evaluation, Impression/Plan Impression: Extubated today. Dysphonia. Responsive cough with trial of puree. Thick yellow phlegm noted in VM. Dysphonia/ aspirating secondary edematous vocal cords from recent extubation. - Dysphagia Impressions/Plan Swallowing Skills: Impaired Dysphagia Impressions: Suspect Aspiration *Silent aspiration: cannot be R/O at bedside - Recommendations Diet Consistency: NPO (including medication.)
[2017-02-16] MEDS ORDERED: amLODIPine BESYLATE 5 MG TABLET (FP) PO ONE (19:22)
[2017-02-16] MEDS ORDERED: DEXTROSE 5%-0.45% SALINE 1,000 ML IV SCH (19:45)
--- NOTE | 2017-02-16 19:59 | PN ---
Progress Note, Physician - Current Medication List Current Medications: Active Medications Amlodipine Besylate (Norvasc -) 5 mg PO DAILY RODRIGO Amlodipine Besylate (Norvasc -) 5 mg PO ONCE ONE Stop: 02/16/17 19:23 Folic Acid (Folic Acid -) 1 mg PO DAILY RODRIGO Propofol (Diprivan -) 1,000,000 mcg in 100 mls @ 2.517 mls/hr IVPB TITR RODRIGO; 5 MCG/KG/MIN PRN Reason: Protocol Last Admin: 02/16/17 07:30 Dose: 50 mcg/kg/min, 25.175 mls/hr Fentanyl 500 mcg/ Dextrose 100 mls @ 0 mls/hr IVPB TITR RODRIGO PRN Reason: Titrate Last Admin: 02/15/17 19:30 Dose: 10 mls/hr Midazolam HCl 100 mg/ Sodium (Chloride) 100 mls @ 1 mls/hr IVPB TITR RODRIGO; 1 MG/ HR PRN Reason: Protocol Last Admin: 02/16/17 01:53 Dose: 6 mg/hr, 6 mls/hr Piperacillin Sod/Tazobactam (Sod 3.375 gm/ Dextrose) 50 mls @ 100 mls/hr IVPB Q8H-IV RODRIGO Last Admin: 02/16/17 19:16 Dose: Not Given Dextrose/Sodium Chloride (D5-1/2ns -) 1,000 mls @ 83 mls/hr IV ASDIR RODRIGO Ibuprofen (Motrin -) 600 mg PO Q8H PRN PRN Reason: PAIN Last Admin: 02/16/17 07:29 Dose: 600 mg Lactulose (Cephulac (Oral Use)) 20 gm PO DAILY RODRIGO Potassium Chloride (Potassium Chloride 20 Meq Premix Ivpb -) 30 meq IVPB ONCE ONE Stop: 02/16/17 11:47 Last Admin: 02/16/17 17:54 Dose: Not Given Potassium Phos/Sodium Phos (Phos-Nak Packet -) 1 packet PO TID RODRIGO Last Admin: 02/16/17 17:55 Dose: Not Given Thiamine HCl (Vitamin B1 Injection -) 250 mg IVPB Q8H-IV RODRIGO Last Admin: 02/16/17 09:29 Dose: 250 mg Thiamine HCl (Vitamin B1 Injection -) 250 mg IVPB Q8H-IV RODRIGO - Objective Vital Signs: Vital Signs Temperature 99.9 F H 02/16/17 14:00 Pulse Rate 86 02/16/17 18:00 Respiratory Rate 17 02/16/17 18:00 Blood Pressure 153/96 02/16/17 18:00 O2 Sat by Pulse Oximetry (%) 98 02/16/17 12:50 Labs: CBC, BMP 02/16/17 05:35 02/16/17 13:10
[2017-02-16] MEDS ORDERED: ACETAMINOPHEN 1000 MG/100 ML VIAL (NON FORMULARY) IVPB ONE (20:29)
[2017-02-17] MEDS: THIAMINE HCL 200 MG/2 ML VIAL IVPB SCH ×3 (02:22→17:55)
[2017-02-17] MEDS: PIPERACILLIN/TAZOB 3.375 GM 3.375 GM in DEXTROSE 5%-WATER - 50 ML IVPB SCH ×3 (02:23→17:57)
[2017-02-17 06:08] LABS: BASO % 0.6 % (0-2.0); EOS % 0.5 % (0-4.5); MCH 34.3 pg (25.7-33.7); MCHC 32.9 g/dl (32.0-35.9); MEAN CELL VOLUME 104.3 fl (80-96); MEAN PLT VOLUME 9.4 fl (7.5-11.1); PLATELET COUNT 294 K/MM3 (134-434); RDW 14.2 % (11.9-15.9); WHITE BLOOD COUNT 14.1 K/mm3 (4.0-10.0)
[2017-02-17] MEDS: NAPH,MB-DB/K PH,MBDB POWDER PACKET PO SCH ×3 (06:26→21:57)
[2017-02-17 06:29] LABS: ALBUMIN 2.3 g/dl (3.4-5.0); ALK PHOS 280 U/L (45-117); ANION GAP 7 (8-16); CALCIUM 8.8 mg/dL (8.5-10.1); CO2 28 mmol/L (21-32); CREATININE 0.8 mg/dL (0.7-1.3); GLUCOSE,RANDOM 91 mg/dL (74-106); PHOSPHOROUS 2.5 mg/dL (2.5-4.9); SGOT/AST 174 U/L (15-37); SGPT/ALT 93 U/L (12-78); TOT PROT 6.7 g/dl (6.4-8.2)
[2017-02-17] MEDS ORDERED: ACETAMINOPHEN 1000 MG/100 ML VIAL (NON FORMULARY) IVPB ONE (08:15)
[2017-02-17] MEDS ORDERED: SODIUM CHLORIDE 1,000 ML IV SCH (09:15)
[2017-02-17] MEDS ORDERED: LACTULOSE 20 GM/30 ML UDC (FOR ORAL USE ONLY) PO SCH (10:00)
[2017-02-17] MEDS ORDERED: FOLIC ACID 1 MG TABLET (FP) PO SCH (10:00)
[2017-02-17] MEDS ORDERED: amLODIPine BESYLATE 5 MG TABLET (FP) PO SCH (10:00)
--- NOTE | 2017-02-17 11:47 | PN ---
Progress Note, Physician History of Present Illness: Chart reviewed. Events noted. The patient is in ICU, extubated. Awake and alert. - Current Medication List Current Medications: Active Medications Amlodipine Besylate (Norvasc -) 5 mg PO DAILY RODRIGO Folic Acid (Folic Acid -) 1 mg PO DAILY [facility] Piperacillin Sod/Tazobactam (Sod 3.375 gm/ Dextrose) 50 mls @ 100 mls/hr IVPB Q8H-IV RODRIGO Last Admin: 02/17/17 11:31 Dose: 100 mls/hr Sodium Chloride (Normal Saline -) 1,000 mls @ 83 mls/hr IV ASDIR RODRIGO Last Admin: 02/17/17 10:00 Dose: 83 mls/hr Ibuprofen (Motrin -) 600 mg PO Q8H PRN PRN Reason: PAIN Last Admin: 02/16/17 07:29 Dose: 600 mg Lactulose (Cephulac (Oral Use)) 20 gm PO DAILY [facility] Potassium Phos/Sodium Phos (Phos-Nak Packet -) 1 packet PO TID RODRIGO Last Admin: 02/17/17 06:26 Dose: Not Given Thiamine HCl (Vitamin B1 Injection -) 250 mg IVPB Q8H-IV RODRIGO Last Admin: 02/17/17 11:36 Dose: 250 mg - Objective Vital Signs: Vital Signs Temperature 101.9 F H 02/17/17 06:00 Pulse Rate 92 H 02/17/17 06:00 Respiratory Rate 29 H 02/17/17 06:00 Blood Pressure 176/93 02/17/17 06:00 O2 Sat by Pulse Oximetry (%) 98 02/16/17 20:17 Constitutional: Yes: No Distress, Calm Eyes: Yes: Conjunctiva Clear HENT: Yes: Atraumatic Neck: Yes: Supple Cardiovascular: Yes: Regular Rate and Rhythm Respiratory: Yes: Regular Gastrointestinal: Yes: Soft. No: Ascites, Distention, Melena, Tenderness, Tenderness, Epigastrium, Tenderness, Rebound, Vomiting Neurological: Yes: Alert, Oriented Labs: CBC, BMP 02/17/17 05:55 02/17/17 05:55 Laboratory Results - last 24 hr 02/16/17 02/17/17 02/17/17 13:10 05:55 05:55 WBC 14.1 H D RBC 3.06 L Hgb 10.5 L Hct 31.9 L MCV 104.3 H MCH 34.3 H MCHC 32.9 RDW 14.2 Plt Count 294 D MPV 9.4 Neutrophils % 72.0 Lymphocytes % 10.1 D Monocytes % 16.8 H Eosinophils % 0.5 Basophils % 0.6 Sodium 137 135 L Potassium 3.6 3.4 L Chloride 103 100 Carbon Dioxide 27 28 Anion Gap 7 L 7 L BUN 7 5 L D Creatinine 0.8 D 0.8 Creat Clearance w eGFR > 60 Random Glucose 95 91 Calcium 8.6 8.8 Phosphorus 2.5 Magnesium 2.0 Total Bilirubin 6.0 H AST 174 H D ALT 93 H D Alkaline Phosphatase 280 H D Total Protein 6.7 Albumin 2.3 L D Problem List - Problems (1) Alcoholic liver disease, unspecified Code(s): K70.9 - ALCOHOLIC LIVER DISEASE, UNSPECIFIED Assessment/Plan A 56 yom with hx of seizures and ?recent onset of alcohol abuse in the ICU for seizure and ?alcohol withdrawal management. No signs of active, or resent GI bleeding, or decompensated liver disease. Blood work, imaging results and the history suggest a possibility of advanced liver disease, which will need to be evaluated closely once his acute, seizure-related issues are under control. Continue care as per ICU team Monitor liver enzymes, PT/INR, ALP, total and direct bili daily will follow EGD d/w ICU resident
--- NOTE | 2017-02-17 11:55 | PN ---
Teaching Attending Note Name of Resident: Johnnie Fitzgerald ATTENDING PHYSICIAN STATEMENT I saw and evaluated the patient. I reviewed the resident's note and discussed the case with the resident. I agree with the resident's findings and plan as documented. SUBJECTIVE: Patient seen and examined in the ICU. Remains extubated and awake. No pressors. No seizure activity. Intake & Output 02/14/17 02/15/17 02/16/17 02/17/17 23:59 23:59 23:59 23:59 Intake Total 4055.8 2200 808.2 1146 Output Total 3900 1550 850 Balance 155.8 650 -41.8 1146 Weight 171 lb 11.2 oz 171 lb 1.6 oz 172 lb 166 lb 0.129 oz Last Vital Signs Temp Pulse Resp BP Pulse Ox 101.9 F H 92 H 29 H 176/93 98 02/17/17 06:00 02/17/17 06:00 02/17/17 06:00 02/17/17 06:00 02/16/17 20:17 Active Medications Amlodipine Besylate (Norvasc -) 5 mg PO DAILY [facility]IGO Folic Acid (Folic Acid -) 1 mg PO DAILY [facility]IG[facility] Piperacillin Sod/Tazobactam (Sod 3.375 gm/ Dextrose) 50 mls @ 100 mls/hr IVPB Q8H-IV [facility] Last Admin: 02/17/17 11:31 Dose: 100 mls/hr Sodium Chloride (Normal Saline -) 1,000 mls @ 83 mls/hr IV ASDIR [facility] Last Admin: 02/17/17 10:00 Dose: 83 mls/hr Ibuprofen (Motrin -) 600 mg PO Q8H PRN PRN Reason: PAIN Last Admin: 02/16/17 07:29 Dose: 600 mg Lactulose (Cephulac (Oral Use)) 20 gm PO DAILY [facility] Potassium Phos/Sodium Phos (Phos-Nak Packet -) 1 packet PO TID RODRIGO Last Admin: 02/17/17 06:26 Dose: Not Given Thiamine HCl (Vitamin B1 Injection -) 250 mg IVPB Q8H-IV [facility]IGO Last Admin: 02/17/17 11:36 Dose: 250 mg Constitutional: Yes: Extubated and awake Eyes: (-) Pallor HENT: Yes: WNL, Atraumatic, Normocephalic. No: Drooling, Epistaxis Neck: Yes: WNL, Supple, Trachea Midline Cardiovascular: Yes: WNL, Regular Rate and Rhythm, Tachycardia. No: Gallop, Murmur, S3, S4 Respiratory: Yes: Scattered rhonchi Gastrointestinal: Yes: WNL, Normal Bowel Sounds, Soft. No: Tenderness, Rebound ...Rectal Exam: Yes: WNL Renal/: Yes: WNL, Shields Present. No: Bladder Distention, Hematuria Breast(s): Yes: WNL Musculoskeletal: Yes: WNL Extremities: Yes: WNL Edema: No Peripheral Pulses WNL: Yes Integumentary: Yes: WNL Neurological: Yes: Awake, non-focal Labs: Laboratory Results - last 24 hr 02/16/17 02/17/17 02/17/17 13:10 05:55 05:55 WBC 14.1 H D RBC 3.06 L Hgb 10.5 L Hct 31.9 L MCV 104.3 H MCH 34.3 H MCHC 32.9 RDW 14.2 Plt Count 294 D MPV 9.4 Neutrophils % 72.0 Lymphocytes % 10.1 D Monocytes % 16.8 H Eosinophils % 0.5 Basophils % 0.6 Sodium 137 135 L Potassium 3.6 3.4 L Chloride 103 100 Carbon Dioxide 27 28 Anion Gap 7 L 7 L BUN 7 5 L D Creatinine 0.8 D 0.8 Creat Clearance w eGFR > 60 Random Glucose 95 91 Calcium 8.6 8.8 Phosphorus 2.5 Magnesium 2.0 Total Bilirubin 6.0 H AST 174 H D ALT 93 H D Alkaline Phosphatase 280 H D Total Protein 6.7 Albumin 2.3 L D Problem List - Problems (1) Alcohol withdrawal seizure Code(s): F10.239 - ALCOHOL DEPENDENCE WITH WITHDRAWAL, UNSPECIFIED; R56.9 - UNSPECIFIED CONVULSIONS Qualifiers: Complication of substance-induced condition: with unspecified complication Qualified Code(s): F10.239 - Alcohol dependence with withdrawal, unspecified; R56.9 - Unspecified convulsions; R56.9 - Unspecified convulsions; R56.9 - Unspecified convulsions; R56.9 - Unspecified convulsions (2) Alcoholic liver disease, unspecified Code(s): K70.9 - ALCOHOLIC LIVER DISEASE, UNSPECIFIED (3) Respiratory failure Code(s): J96.90 - RESPIRATORY FAILURE, UNSP, UNSP W HYPOXIA OR HYPERCAPNIA Qualifiers: Chronicity: unspecified Respiratory failure complication: unspecified whether with hypoxia or hypercapnia Qualified Code(s): J96.90 - Respiratory failure, unspecified, unspecified whether with hypoxia or hypercapnia (4) Seizure Code(s): R56.9 - UNSPECIFIED CONVULSIONS (5) Abnormal LFTs (liver function tests) Code(s): R79.89 - OTHER SPECIFIED ABNORMAL FINDINGS OF BLOOD CHEMISTRY Assessment/Plan Swallow re-evaluation O2 as needed AEDs VTE prophylaxis Thiamine MVI ABX per ID Aspiration precautions Floor Dr Davis Critical care time spent in reviewing chart, evaluating patient and formulating plan - 40 minutes.
--- NOTE | 2017-02-17 12:05 | PN ---
Progress Note, [employer]ER - Note Progress Note: Much improved as compared to last night. Vocal quality much improved. Now mildly dysphonic. No longer wet quality. Off vm, now with NC. More responsive. Swallow function reassessed. Missing dentition. Fair mastication. Swallow is fairly brisk. No responsive cough or vocal wetness. Silent aspiration can not be r/o at bedside. Selected Entries 02/16/17 02/16/17 02/16/17 02:00 06:00 08:00 Supper Temperature 100.1 F H 100.7 F H 101.3 F H 02/16/17 02/16/17 02/16/17 10:00 14:00 20:00 Supper Temperature 98.7 F 99.9 F H 100.7 F H 02/16/17 02/17/17 02/17/17 20:22 02:00 06:00 Supper NPO Temperature 100.5 F H 101.9 F H Laboratory Tests 02/16/17 02/17/17 05:35 05:55 WBC 10.1 H D 14.1 H D Imp:Overtly ok but still with mild dysphonia and fever, elevated WBC. REC: Trial of soft, regular food and nectar thick liquid. Observe for cough,congestion, persistent, fever. NPO if medical changes. Suggest MBS to r/o silent aspiration, likely Monday..
--- NOTE | 2017-02-17 14:34 | PN ---
Physical Exam: SUBJECTIVE: Patient seen and examined at bedside. BP stable. Low fevers. Extubated. OBJECTIVE: Vital Signs Period Temp Pulse Resp BP Sys/Mcbride Pulse Ox Last 24 Hr 100.5 F-101.9 F 78-100 17-30 140-176/87-101 98 GENERAL: The patient is awake, alert, and fully oriented, in no acute distress. No asterixis. HEAD: Normal with no signs of trauma. EYES: PERRL, extraocular movements intact, sclera anicteric, conjunctiva clear. No ptosis. ENT: Adentulous. oropharynx clear without exudates, moist mucous membranes. NECK: Trachea midline, full range of motion, supple. LUNGS: Breath sounds equal, clear to auscultation bilaterally, no wheezes, no crackles, no accessory muscle use. HEART: Regular rate and rhythm, S1, S2 without murmur, rub or gallop. ABDOMEN: Soft, nontender, nondistended, normoactive bowel sounds, no guarding, no rebound, no hepatosplenomegaly, no masses. EXTREMITIES: 2+ pulses, warm, well-perfused, no edema. NEUROLOGICAL: Cranial nerves II through XII grossly intact. Normal speech, gait not observed. PSYCH: Normal mood, normal affect. SKIN: Warm, dry, normal turgor, no rashes or lesions noted Laboratory Results - last 24 hr 02/17/17 02/17/17 05:55 05:55 WBC 14.1 H D RBC 3.06 L Hgb 10.5 L Hct 31.9 L MCV 104.3 H MCH 34.3 H MCHC 32.9 RDW 14.2 Plt Count 294 D MPV 9.4 Neutrophils % 72.0 Lymphocytes % 10.1 D Monocytes % 16.8 H Eosinophils % 0.5 Basophils % 0.6 Sodium 135 L Potassium 3.4 L Chloride 100 Carbon Dioxide 28 Anion Gap 7 L BUN 5 L D Creatinine 0.8 Creat Clearance w eGFR > 60 Random Glucose 91 Calcium 8.8 Phosphorus 2.5 Magnesium 2.0 Total Bilirubin 6.0 H AST 174 H D ALT 93 H D Alkaline Phosphatase 280 H D Total Protein 6.7 Albumin 2.3 L D Active Medications Generic Name Dose Route Start Last Admin Trade Name Freq PRN Reason Stop Dose Admin Amlodipine Besylate 5 mg 02/17/17 10:00 02/17/17 12:30 Norvasc - PO 5 mg DAILY RODRIGO Administration Folic Acid 1 mg 02/17/17 10:00 02/17/17 12:30 Folic Acid - PO 1 mg DAILY RODIRGO Administration Piperacillin Sod/Tazobactam 50 mls @ 100 mls/hr 02/16/17 14:00 02/17/17 11:31 Sod 3.375 gm/ Dextrose IVPB 100 mls/hr Q8H-IV RODRIGO Administration Sodium Chloride 1,000 mls @ 83 mls/hr 02/17/17 09:15 02/17/17 10:00 Normal Saline - IV 83 mls/hr ASDIR RODRIGO Administration Ibuprofen 600 mg 02/14/17 21:55 02/16/17 07:29 Motrin - PO 600 mg Q8H PRN Administration PAIN Lactulose 20 gm 02/17/17 10:00 02/17/17 12:30 Cephulac (Oral Use) PO 20 gm DAILY RODRIGO Administration Potassium Phos/Sodium Phos 1 packet 02/14/17 06:00 02/17/17 06:26 Phos-Nak Packet - PO Not Given TID RODRIGO Thiamine HCl 250 mg 02/17/17 02:00 02/17/17 11:36 Vitamin B1 Injection - IVPB 250 mg Q8H-IV RODRIGO Administration ASSESSMENT/PLAN: Pt is a 56M w/ extensive history of alcohol abuse with seizures and detox 6 mo ago. Last drink sometime in the last week. Pt came to ICU after having refractory seizures in ED requiring intubation and sedation. Pt extubated at this time. Neuro #EtOH withdrawal -Pt intubated and sedated for withdrawal seizures -Pt was on Keppra (not taken recently), so unclear if epileptic vs DT seizures -Propofol drip d/c'ed -Versed drip d/c'ed -Fentanyl d/c'ed -Neuro recs: C/w thiamine. GI consult to r/o varices #Encephalopathy -ammonia level high at home. Pt has been taking lactulose as outpt -ammonia level above baseline in ICU. Normal level GI #Hepatitis -transaminitis above his baseline -abd u/s hepatomegally #Pancreatitis: likely resolved -elevated lipase on admission -abd u/s hepatomegally -no abdominal pain FEN -on NS -hyponatremia. repleting -NPO for now PPx -SCDs -Hep SubQ Dispo:transfer to Med/Surg. Thank you for this consultative opportunity. Johnnie Fitzgerald MD PGY-1 ICU Visit type - Emergency Visit Emergency Visit: No - New Patient This patient is new to me today: No - Critical Care Critical Care patient: Yes Total Critical Care Time (in minutes): 35 Critical Care Statement: The care of this patient involved high complexity decision making to prevent further life threatening deterioration of the patient 's condition and/or to evaluate & treat vital organ system(s) failure or risk of failure. - Discharge Referral Referred to [facility] Med P.C.: No
[2017-02-17] MEDS ORDERED: POTASSIUM CHLORIDE TABS 20 MEQ TABLET.ER (FP) PO ONE (14:41)
[2017-02-17] MEDS: SODIUM CHLORIDE 1,000 ML IV SCH (15:35)
--- NOTE | 2017-02-17 15:43 | PN ---
Progress Note, Physician History of Present Illness: Transferred to regular floor Reports cough/ resp secretions No c/o chest pain /dyspnea CXR improved Temps improved WBC increased 14k - Current Medication List Current Medications: Active Medications Amlodipine Besylate (Norvasc -) 5 mg PO DAILY [facility] Last Admin: 02/17/17 12:30 Dose: 5 mg Folic Acid (Folic Acid -) 1 mg PO DAILY ROD[facility]IGO Last Admin: 02/17/17 12:30 Dose: 1 mg Piperacillin Sod/Tazobactam (Sod 3.375 gm/ Dextrose) 50 mls @ 100 mls/hr IVPB Q8H-IV [facility]RIGO Last Admin: 02/17/17 11:31 Dose: 100 mls/hr Sodium Chloride (Normal Saline -) 1,000 mls @ 83 mls/hr IV ASDIR RODRIGO Last Admin: 02/17/17 10:00 Dose: 83 mls/hr Ibuprofen (Motrin -) 600 mg PO Q8H PRN PRN Reason: PAIN Last Admin: 02/16/17 07:29 Dose: 600 mg Lactulose (Cephulac (Oral Use)) 20 gm PO DAILY [facility] Last Admin: 02/17/17 12:30 Dose: 20 gm Potassium Phos/Sodium Phos (Phos-Nak Packet -) 1 packet PO TID RODRIGO Last Admin: 02/17/17 14:45 Dose: 1 packet Thiamine HCl (Vitamin B1 Injection -) 250 mg IVPB Q8H-IV RODRIGO Last Admin: 02/17/17 11:36 Dose: 250 mg - Objective Vital Signs: Vital Signs Temperature 98.8 F 02/17/17 14:00 Pulse Rate 98 H 02/17/17 14:00 Respiratory Rate 22 02/17/17 14:00 Blood Pressure 123/79 02/17/17 14:00 O2 Sat by Pulse Oximetry (%) 98 02/16/17 20:17 Constitutional: Yes: No Distress Cardiovascular: Yes: Regular Rate and Rhythm, S1, S2 Respiratory: Yes: Other (few crepitations at bases) Gastrointestinal: Yes: Normal Bowel Sounds, Soft. No: Tenderness Edema: No Labs: CBC, BMP 02/17/17 05:55 02/17/17 05:55 Assessment/Plan Probable aspiration pneumonia S/P extubation S/P seizures Repeat c/s no growth CXR improved Continue empiric Zosyn
[2017-02-17] MEDS: IBUPROFEN 600 MG TABLET (FP) PO PRN (16:20)
[2017-02-17] MEDS ORDERED: IBUPROFEN 600 MG TABLET (FP) PO PRN (16:31)
[2017-02-17] MEDS ORDERED: PT OWN MED DRAWER 7, Y5N ONE (18:13)
--- NOTE | 2017-02-17 19:07 | PN ---
Progress Note (short form) - Note Progress Note: NEUROLOGY FOLLOW-UP Extubated. Breathing comfortably. No seizures. Bilirubin still 6.0! Ammonia down to 24 mg% Patient crying, c/o severe depression. Well-oriented. Full EOM's No drift. Normal reflexes. IMP: Non-focal exam ETOH withdrawal seizure. Depression. Suggest: Observe off AED's. Rx as per hepatology/GI Psychiatry consult/antidepressant Rx. Thank you very much, Boris Ruiz MD
--- NOTE | 2017-02-17 23:47 | PN ---
Progress Note, Physician - Current Medication List Current Medications: Active Medications Amlodipine Besylate (Norvasc -) 5 mg PO DAILY [facility] Citalopram Hydrobromide (Celexa -) 10 mg PO DAILY [facility] Folic Acid (Folic Acid -) 1 mg PO DAILY [facility] Piperacillin Sod/Tazobactam (Sod 3.375 gm/ Dextrose) 50 mls @ 100 mls/hr IVPB Q8H-IV [facility] Last Admin: 02/17/17 17:57 Dose: 100 mls/hr Sodium Chloride (Normal Saline -) 1,000 mls @ 83 mls/hr IV ASDIR [facility]RIGO Last Admin: 02/17/17 15:35 Dose: 83 mls/hr Ibuprofen (Motrin -) 600 mg PO Q8H PRN PRN Reason: PAIN Lactulose (Cephulac (Oral Use)) 20 gm PO DAILY [facility] Potassium Phos/Sodium Phos (Phos-Nak Packet -) 1 packet PO TID R[facility]RIGO Last Admin: 02/17/17 21:57 Dose: 1 packet Thiamine HCl (Vitamin B1 Injection -) 250 mg IVPB Q8H-IV RODRIGO Last Admin: 02/17/17 17:55 Dose: 250 mg - Objective Vital Signs: Vital Signs Temperature 98.8 F 02/17/17 19:00 Pulse Rate 88 02/17/17 19:00 Respiratory Rate 20 02/17/17 19:00 Blood Pressure 140/80 02/17/17 17:15 O2 Sat by Pulse Oximetry (%) 98 02/17/17 15:35 Labs: CBC, BMP 02/17/17 05:55 02/17/17 05:55
[2017-02-18] MEDS: THIAMINE HCL 200 MG/2 ML VIAL IVPB SCH ×3 (01:47→17:05)
[2017-02-18] MEDS: SODIUM CHLORIDE 1,000 ML IV SCH ×2 (01:48→17:05)
[2017-02-18] MEDS: PIPERACILLIN/TAZOB 3.375 GM 3.375 GM in DEXTROSE 5%-WATER - 50 ML IVPB SCH ×3 (01:48→17:05)
[2017-02-18] MEDS: NAPH,MB-DB/K PH,MBDB POWDER PACKET PO SCH ×3 (06:31→21:51)
[2017-02-18 07:44] LABS: MCH 33.6 pg (25.7-33.7); MCHC 32.4 g/dl (32.0-35.9); MEAN CELL VOLUME 103.5 fl (80-96); MEAN PLT VOLUME 8.6 fl (7.5-11.1); PLATELET COUNT 382 K/MM3 (134-434); WHITE BLOOD COUNT 18.4 K/mm3 (4.0-10.0)
[2017-02-18 08:10] LABS: ANION GAP 11 (8-16); CALCIUM 9.2 mg/dL (8.5-10.1); CO2 25 mmol/L (21-32); CREATININE 0.8 mg/dL (0.7-1.3); GLUCOSE,RANDOM 87 mg/dL (74-106)
[2017-02-18] MEDS: FENTANYL INJECTION 500 MCG in DEXTROSE 5%-WATER - 90 ML IVPB SCH (08:18)
[2017-02-18] MEDS: MIDAZOLAM 100 MG in SODIUM CHLORIDE 100 ML IVPB SCH (08:18)
[2017-02-18] MEDS: KCL 10 MEQ IVPB 10 MEQ/100 ML INFUS.BAG IVPB SCH (08:18)
[2017-02-18] MEDS: FOLIC ACID 1 MG TABLET (FP) PO SCH (09:35)
[2017-02-18] MEDS: CITALOPRAM HYDROBROMIDE 10 MG TABLET (FP) PO SCH (09:35)
[2017-02-18] MEDS: amLODIPine BESYLATE 5 MG TABLET (FP) PO SCH (09:35)
[2017-02-18] MEDS ORDERED: LACTULOSE 20 GM/30 ML UDC (FOR ORAL USE ONLY) PO SCH (10:00)
[2017-02-18 10:34] LABS: TOTAL CELLS COUNTED 100
[2017-02-18 10:35] LABS: METAMYELOCYTE 1 % (0-2); PLATELET ESTIMATE ADEQUATE
--- NOTE | 2017-02-18 10:35 | PN ---
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 Ammonia level down Repeat BC no growth - Current Medication List Current Medications: Active Medications Amlodipine Besylate (Norvasc -) 5 mg PO DAILY [facility] Last Admin: 02/18/17 09:35 Dose: 5 mg Citalopram Hydrobromide (Celexa -) 10 mg PO DAILY [facility] Last Admin: 02/18/17 09:35 Dose: 10 mg Folic Acid (Folic Acid -) 1 mg PO DAILY [facility] Last Admin: 02/18/17 09:35 Dose: 1 mg Piperacillin Sod/Tazobactam (Sod 3.375 gm/ Dextrose) 50 mls @ 100 mls/hr IVPB Q8H-IV [facility] Last Admin: 02/18/17 09:35 Dose: 100 mls/hr Sodium Chloride (Normal Saline -) 1,000 mls @ 83 mls/hr IV ASDIR [facility] Last Admin: 02/18/17 01:48 Dose: 83 mls/hr Ibuprofen (Motrin -) 600 mg PO Q8H PRN PRN Reason: PAIN Last Admin: 02/18/17 01:53 Dose: 600 mg Lactulose (Cephulac (Oral Use)) 20 gm PO DAILY [facility] Last Admin: 02/18/17 09:35 Dose: 20 gm Potassium Phos/Sodium Phos (Phos-Nak Packet -) 1 packet PO TID [facility] Last Admin: 02/18/17 06:31 Dose: 1 packet Thiamine HCl (Vitamin B1 Injection -) 250 mg IVPB Q8H-IV [facility] Last Admin: 02/18/17 09:36 Dose: 250 mg - Objective Vital Signs: Vital Signs Temperature 99.8 F H 02/18/17 09:00 Pulse Rate 92 H 02/18/17 09:00 Respiratory Rate 18 02/18/17 09:00 Blood Pressure 152/89 02/18/17 09:00 O2 Sat by Pulse Oximetry (%) 97 02/18/17 09:00 Constitutional: Yes: No Distress Eyes: Yes: Conjunctiva Clear Cardiovascular: Yes: Regular Rate and Rhythm, S1, S2 Respiratory: Yes: CTA Bilaterally Gastrointestinal: Yes: Normal Bowel Sounds, Soft. No: Tenderness Edema: No Labs: CBC, BMP 02/18/17 07:25 02/18/17 07:25 Assessment/Plan Probable aspiration pneumonia S/P extubation S/P seizures ? Hepatic encephalopathy Repeat c/s no growth CXR improved Continue empiric Zosyn
--- NOTE | 2017-02-18 14:17 | PN ---
Progress Note (short form) - Note Progress Note: PULMONARY AWAKE/ALERT DAUGHTER IN ATTENDANCE REMAINS STABLE POST EXTUBATION VSS ANICTERIC CLEAR S1S2 BS+ NO EDEMA/SCD'S LABS/MEDS/NOTES/IMAGES/MICRO REVIEWED - Problems (1) Alcohol withdrawal seizure Code(s): F10.239 - ALCOHOL DEPENDENCE WITH WITHDRAWAL, UNSPECIFIED; R56.9 - UNSPECIFIED CONVULSIONS Qualifiers: Complication of substance-induced condition: with unspecified complication Qualified Code(s): F10.239 - Alcohol dependence with withdrawal, unspecified; R56.9 - Unspecified convulsions; R56.9 - Unspecified convulsions; R56.9 - Unspecified convulsions; R56.9 - Unspecified convulsions (2) Alcoholic liver disease, unspecified Code(s): K70.9 - ALCOHOLIC LIVER DISEASE, UNSPECIFIED (3) Respiratory failure Code(s): J96.90 - RESPIRATORY FAILURE, UNSP, UNSP W HYPOXIA OR HYPERCAPNIA Qualifiers: Chronicity: unspecified Respiratory failure complication: unspecified whether with hypoxia or hypercapnia Qualified Code(s): J96.90 - Respiratory failure, unspecified, unspecified whether with hypoxia or hypercapnia (4) Seizure Code(s): R56.9 - UNSPECIFIED CONVULSIONS (5) Abnormal LFTs (liver function tests) Code(s): R79.89 - OTHER SPECIFIED ABNORMAL FINDINGS OF BLOOD CHEMISTRY Assessment/Plan Swallow re-evaluation O2 as needed AEDs VTE prophylaxis Thiamine MVI ABX per ID Aspiration precautions Alexis TRAN MD
[2017-02-18] MEDS ORDERED: PT OWN MED DRAWER 7, Y5N ONE ×2 (14:31→20:02)
[2017-02-18] MEDS ORDERED: WITCH HAZEL 50% (TUCKS) 40 PAD/JAR PAD TP PRN (15:42)
--- NOTE | 2017-02-18 19:45 | PN ---
Progress Note, Physician - Current Medication List Current Medications: Active Medications Amlodipine Besylate (Norvasc -) 5 mg PO DAILY [facility] Last Admin: 02/18/17 09:35 Dose: 5 mg Citalopram Hydrobromide (Celexa -) 10 mg PO DAILY [facility] Last Admin: 02/18/17 09:35 Dose: 10 mg Folic Acid (Folic Acid -) 1 mg PO DAILY [facility] Last Admin: 02/18/17 09:35 Dose: 1 mg Piperacillin Sod/Tazobactam (Sod 3.375 gm/ Dextrose) 50 mls @ 100 mls/hr IVPB Q8H-IV [facility]IGO Last Admin: 02/18/17 17:05 Dose: 100 mls/hr Sodium Chloride (Normal Saline -) 1,000 mls @ 83 mls/hr IV ASDIR [facility] Last Admin: 02/18/17 17:05 Dose: 83 mls/hr Ibuprofen (Motrin -) 600 mg PO Q8H PRN PRN Reason: PAIN Last Admin: 02/18/17 01:53 Dose: 600 mg Potassium Phos/Sodium Phos (Phos-Nak Packet -) 1 packet PO TID RODRIGO Last Admin: 02/18/17 14:33 Dose: 1 packet Thiamine HCl (Vitamin B1 Injection -) 250 mg IVPB Q8H-IV RODRIGO Last Admin: 02/18/17 17:05 Dose: 250 mg Witch Caro/Glycerin (Tucks Pads -) 1 pad TP Q8H PRN PRN Reason: HEMORRHOIDS - Objective Vital Signs: Vital Signs Temperature 99.2 F 02/18/17 14:40 Pulse Rate 98 H 02/18/17 14:40 Respiratory Rate 18 02/18/17 14:40 Blood Pressure 151/90 02/18/17 14:40 O2 Sat by Pulse Oximetry (%) 97 02/18/17 09:00 Labs: CBC, BMP 02/18/17 07:25 02/18/17 07:25
[2017-02-19] MEDS: PIPERACILLIN/TAZOB 3.375 GM 3.375 GM in DEXTROSE 5%-WATER - 50 ML IVPB SCH ×3 (01:41→17:22)
[2017-02-19] MEDS: THIAMINE HCL 200 MG/2 ML VIAL IVPB SCH ×3 (01:47→18:52)
[2017-02-19] MEDS: NAPH,MB-DB/K PH,MBDB POWDER PACKET PO SCH ×3 (06:12→22:47)
[2017-02-19] MEDS: SODIUM CHLORIDE 1,000 ML IV SCH ×3 (07:48→18:51)
[2017-02-19] MEDS ORDERED: PT OWN MED DRAWER 7, Y5N ONE ×3 (09:27→18:28)
[2017-02-19] MEDS: amLODIPine BESYLATE 5 MG TABLET (FP) PO SCH (09:29)
[2017-02-19] MEDS: FOLIC ACID 1 MG TABLET (FP) PO SCH (09:29)
[2017-02-19] MEDS: CITALOPRAM HYDROBROMIDE 10 MG TABLET (FP) PO SCH (09:29)
--- NOTE | 2017-02-19 11:27 | PN ---
Progress Note, Physician History of Present Illness: Temps down Breathing non-labored Seems slightly confused + cough/ resp secretions No c/o chest pain /dyspnea Repeat BC no growth - Current Medication List Current Medications: Active Medications Amlodipine Besylate (Norvasc -) 5 mg PO DAILY [facility] Last Admin: 02/19/17 09:29 Dose: 5 mg Citalopram Hydrobromide (Celexa -) 10 mg PO DAILY [facility] Last Admin: 02/19/17 09:29 Dose: 10 mg Folic Acid (Folic Acid -) 1 mg PO DAILY [facility] Last Admin: 02/19/17 09:29 Dose: 1 mg Piperacillin Sod/Tazobactam (Sod 3.375 gm/ Dextrose) 50 mls @ 100 mls/hr IVPB Q8H-IV [facility] Last Admin: 02/19/17 09:29 Dose: 100 mls/hr Sodium Chloride (Normal Saline -) 1,000 mls @ 83 mls/hr IV ASDIR [facility] Last Admin: 02/19/17 07:48 Dose: 83 mls/hr Ibuprofen (Motrin -) 600 mg PO Q8H PRN PRN Reason: PAIN Last Admin: 02/18/17 01:53 Dose: 600 mg Potassium Phos/Sodium Phos (Phos-Nak Packet -) 1 packet PO TID [facility] Last Admin: 02/19/17 06:12 Dose: 1 packet Thiamine HCl (Vitamin B1 Injection -) 250 mg IVPB Q8H-IV [facility]IGO Last Admin: 02/19/17 10:53 Dose: 250 mg Witch Caro/Glycerin (Tucks Pads -) 1 pad TP Q8H PRN PRN Reason: HEMORRHOIDS - Objective Vital Signs: Vital Signs Temperature 98.8 F 02/19/17 09:32 Pulse Rate 84 02/19/17 09:32 Respiratory Rate 20 02/19/17 09:32 Blood Pressure 154/87 02/19/17 09:32 O2 Sat by Pulse Oximetry (%) 100 02/19/17 09:00 Constitutional: Yes: No Distress Eyes: Yes: Conjunctiva Clear Cardiovascular: Yes: Regular Rate and Rhythm, S1, S2 Respiratory: Yes: CTA Bilaterally Gastrointestinal: Yes: Normal Bowel Sounds, Soft. No: Tenderness Labs: CBC, BMP 02/18/17 07:25 02/18/17 07:25 Assessment/Plan Probable aspiration pneumonia S/P extubation S/P seizures ? Hepatic encephalopathy Repeat c/s no growth CXR improved Continue empiric Zosyn
--- NOTE | 2017-02-19 12:32 | PN ---
Progress Note (short form) - Note Progress Note: PULMONARY AWAKE/ALERT DAUGHTER IN ATTENDANCE REMAINS STABLE POST EXTUBATION NOT WEARING O2 VSS ANICTERIC CLEAR/NO WHEEZE S1S2 BS+ NO EDEMA/SCD'S LABS/MEDS/NOTES/IMAGES/MICRO REVIEWED - Problems (1) Alcohol withdrawal seizure Code(s): F10.239 - ALCOHOL DEPENDENCE WITH WITHDRAWAL, UNSPECIFIED; R56.9 - UNSPECIFIED CONVULSIONS Qualifiers: Complication of substance-induced condition: with unspecified complication Qualified Code(s): F10.239 - Alcohol dependence with withdrawal, unspecified; R56.9 - Unspecified convulsions; R56.9 - Unspecified convulsions; R56.9 - Unspecified convulsions; R56.9 - Unspecified convulsions (2) Alcoholic liver disease, unspecified Code(s): K70.9 - ALCOHOLIC LIVER DISEASE, UNSPECIFIED (3) Respiratory failure Code(s): J96.90 - RESPIRATORY FAILURE, UNSP, UNSP W HYPOXIA OR HYPERCAPNIA Qualifiers: Chronicity: unspecified Respiratory failure complication: unspecified whether with hypoxia or hypercapnia Qualified Code(s): J96.90 - Respiratory failure, unspecified, unspecified whether with hypoxia or hypercapnia (4) Seizure Code(s): R56.9 - UNSPECIFIED CONVULSIONS (5) Abnormal LFTs (liver function tests) Code(s): R79.89 - OTHER SPECIFIED ABNORMAL FINDINGS OF BLOOD CHEMISTRY Assessment/Plan Swallow re-evaluation O2 as needed VTE prophylaxis Thiamine MVI ABX per ID Discharge planning Alexis TRAN MD
[2017-02-19 18:21] VITALS: TEMP 98.3
--- NOTE | 2017-02-19 21:41 | PN ---
Progress Note, Physician History of Present Illness: Pt is confused - Current Medication List Current Medications: Active Medications Amlodipine Besylate (Norvasc -) 5 mg PO DAILY [facility] Last Admin: 02/19/17 09:29 Dose: 5 mg Citalopram Hydrobromide (Celexa -) 10 mg PO DAILY [facility] Last Admin: 02/19/17 09:29 Dose: 10 mg Folic Acid (Folic Acid -) 1 mg PO DAILY [facility] Last Admin: 02/19/17 09:29 Dose: 1 mg Piperacillin Sod/Tazobactam (Sod 3.375 gm/ Dextrose) 50 mls @ 100 mls/hr IVPB Q8H-IV RODRIGO Last Admin: 02/19/17 17:22 Dose: 100 mls/hr Sodium Chloride (Normal Saline -) 1,000 mls @ 83 mls/hr IV ASDIR [facility] Last Admin: 02/19/17 18:51 Dose: 83 mls/hr Ibuprofen (Motrin -) 600 mg PO Q8H PRN PRN Reason: PAIN Last Admin: 02/18/17 01:53 Dose: 600 mg Potassium Phos/Sodium Phos (Phos-Nak Packet -) 1 packet PO TID [facility] Last Admin: 02/19/17 13:28 Dose: 1 packet Thiamine HCl (Vitamin B1 Injection -) 250 mg IVPB Q8H-IV RODRIGO Last Admin: 02/19/17 18:52 Dose: 250 mg Witch Caro/Glycerin (Tucks Pads -) 1 pad TP Q8H PRN PRN Reason: HEMORRHOIDS - Objective Vital Signs: Vital Signs Temperature 98.3 F 02/19/17 17:00 Pulse Rate 80 02/19/17 17:00 Respiratory Rate 20 02/19/17 17:00 Blood Pressure 146/74 02/19/17 17:00 O2 Sat by Pulse Oximetry (%) 100 02/19/17 09:00 Constitutional: Yes: No Distress HENT: Yes: WNL Neck: Yes: WNL, Supple Cardiovascular: Yes: WNL, Regular Rate and Rhythm Respiratory: Yes: WNL, Regular, CTA Bilaterally Gastrointestinal: Yes: WNL, Normal Bowel Sounds, Soft Edema: No Labs: CBC, BMP 02/18/17 07:25 02/18/17 07:25 Problem List - Problems (1) Respiratory failure Assessment/Plan: Asp pneumonia Elevated WBC Repeat wbc in am Cont IV zosyn BC have been negative Code(s): J96.90 - RESPIRATORY FAILURE, UNSP, UNSP W HYPOXIA OR HYPERCAPNIA Qualifiers: Chronicity: unspecified Respiratory failure complication: unspecified whether with hypoxia or hypercapnia Qualified Code(s): J96.90 - Respiratory failure, unspecified, unspecified whether with hypoxia or hypercapnia (2) Alcoholic liver disease, unspecified Assessment/Plan: Hepatic encephalopathy Check stat ammonia level May need to restart lactulose GI consult for persistent elevated LFT's Code(s): K70.9 - ALCOHOLIC LIVER DISEASE, UNSPECIFIED (3) Seizure Assessment/Plan: Due to etoh w/drawal Code(s): R56.9 - UNSPECIFIED CONVULSIONS (4) Alcohol dependence with withdrawal Assessment/Plan: Cont thiamine/folic acid Will get psych consult Cont celexa for depression Code(s): F10.239 - ALCOHOL DEPENDENCE WITH WITHDRAWAL, UNSPECIFIED Qualifiers: Complication of substance-induced condition: uncomplicated Qualified Code(s ): F10.230 - Alcohol dependence with withdrawal, uncomplicated (5) HTN (hypertension) Assessment/Plan: Cont norvasc Code(s): I10 - ESSENTIAL (PRIMARY) HYPERTENSION
[2017-02-20 02:56] VITALS: BP 153/94; PULSE 100
[2017-02-20] MEDS: THIAMINE HCL 200 MG/2 ML VIAL IVPB SCH (04:23)
[2017-02-20] MEDS: PIPERACILLIN/TAZOB 3.375 GM 3.375 GM in DEXTROSE 5%-WATER - 50 ML IVPB SCH (04:23)
--- NOTE | 2017-02-20 22:58 | DS ---
Physical Examination Vital Signs: Vital Signs Temperature 98.3 F 02/19/17 17:00 Pulse Rate 100 H 02/19/17 21:00 Respiratory Rate 20 02/19/17 21:00 Blood Pressure 153/94 02/19/17 21:00 O2 Sat by Pulse Oximetry (%) 100 02/19/17 21:00 Labs: CBC, BMP 02/18/17 07:25 02/18/17 07:25 Discharge Summary Reason For Visit: ABNORMAL LIVER FUNCTION TESTS,ALCOHOLISM, Respiratory failure Aspiration pneumonia Sepsis Etoh withdrawal Alcohol withdrawal seizures Hepatic encephalopathy HTN Hospital Course: Pt is a 56M w/ extensive history of alcohol abuse with seizures and detox 6 mo ago. Pt admitted to ICU after having refractory seizures in ED requiring intubation and sedation. Pt was extubated. Pt found to have alcoholic liver disease w/ elevated ammonia and responded to lactulose. Pt also treated for aspiration pneumonia/sepsis w/ IV zosyn. Pt followed by GI/pulmonary/neuro. Pt than left hospital and returned to ER but left again. Condition: Critical - Instructions Referrals: Bharathi Fitzpatrick MD [Primary Care Provider] - Disposition: ELOPED - Home Medications Comprehensive Discharge Medication List: Ambulatory Orders Amlodipine Besylate [Norvasc -] 5 mg PO DAILY #30 tablet 06/27/16 Folic Acid - 1 mg PO DAILY #30 tablet 06/27/16 Lactulose 20 gm PO DAILY #30 ml 06/27/16 Thiamine HCl [Vitamin B1 Injection -] 250 mg IVPB Q8H-IV #30 vial 06/27/16
== END 2017-02-20 09:12 | disposition left against medical advice (07) | DRG 280 ==
LOC: JER 03:22 → JERBED 05:32 → JICU 06:06 → J5S 02-17 15:04
PROVIDERS: ADMIT Internal Medicine; ATTEND Internal Medicine
PROC: 0BH17EZ Insertion of Endotracheal Airway into Trachea, Via Natural or Artificial Opening (ICD-10-PCS; principal; 2017-02-13)
PROC: 5A1945Z Respiratory Ventilation, 24-96 Consecutive Hours (ICD-10-PCS; 2017-02-13)
DX: K70.30 Alcoholic cirrhosis of liver without ascites (principal); J96.90 Respiratory failure, unspecified, unspecified whether with hypoxia or hypercapnia; R79.89 Other specified abnormal findings of blood chemistry; F10.230 Alcohol dependence with withdrawal, uncomplicated; R56.9 Unspecified convulsions; K70.9 Alcoholic liver disease, unspecified; K85.90 Acute pancreatitis without necrosis or infection, unspecified; G92 Toxic encephalopathy; T50.995A Adverse effect of other drugs, medicaments and biological substances, initial encounter; Y92.89 Other specified places as the place of occurrence of the external cause; K72.91 Hepatic failure, unspecified with coma; E87.6 Hypokalemia; D69.6 Thrombocytopenia, unspecified; G40.802 Other epilepsy, not intractable, without status epilepticus; E83.39 Other disorders of phosphorus metabolism; K76.0 Fatty (change of) liver, not elsewhere classified; E86.0 Dehydration; F10.231 Alcohol dependence with withdrawal delirium; E87.1 Hypo-osmolality and hyponatremia; J69.0 Pneumonitis due to inhalation of food and vomit
CPT/HCPCS: 36415; 36600; 70450-TC; 71010-TC; 72125-TC; 76705-TC; 80048; 80053; 80307; 81003; 81015; 82140; 82272; 82550; 82553; 82693; 82803; 83605; 83615; 83690; 83735; 84100; 84484; 85025; 87040; 87070; 87086; 87205; 87804; 93005; 93010; 94002; 99285-25

== ENCOUNTER 2017-02-19 23:13 | Emergency (ER) | payer OTHER ==
[2017-02-19 23:21] VITALS: BP 157/105; PULSE 111; BMI 23.6
--- NOTE | 2017-02-26 20:35 | PDOC ---
History of Present Illness - General Chief Complaint: Altered Mental Status Stated Complaint: AMS; Pt was an inpatient in our hospital. He eloped and was brought back by police; reportedly altered mental status. Pt is alert and awake and oriented x 3. In no distress. Time Seen by Provider: 02/19/17 23:28 History Source: Patient, Other (police) Past History - Past Medical History Allergies/Adverse Reactions: Allergies Allergy/AdvReac Type Severity Reaction Status Date / Time No Known Allergies Allergy Verified 02/19/17 23:19 Home Medications: Ambulatory Orders Amlodipine Besylate [Norvasc -] 5 mg PO DAILY #30 tablet 06/27/16 Folic Acid - 1 mg PO DAILY #30 tablet 06/27/16 Lactulose 20 gm PO DAILY #30 ml 06/27/16 Thiamine HCl [Vitamin B1 Injection -] 250 mg IVPB Q8H-IV #30 vial 06/27/16 COPD: No HTN: Yes Seizures: Yes - Immunization History Immunization Up to Date: No - Suicide/Smoking/Psychosocial Hx Smoking History: Unknown if ever smoked Have you smoked in the past 12 months: No Number of Cigarettes Smoked Daily: 2 If you are a former smoker, when did you quit?: 2 years Cigars Per Day: 0 Information on smoking cessation initiated: No 'Breaking Loose' booklet given: 10/23/14 Hx Alcohol Use: No Drug/Substance Use Hx: No Substance Use Type: Alcohol Hx Substance Use Treatment: No Review of Systems - Review of Systems Able to Perform ROS?: No (pt is refusing to answer ) Comments:: 02/26/17 20:35 Pt is non compliant with exam, as he doesn't want to stay in the hospital. Is the patient limited Russian proficient: No *Physical Exam - Vital Signs Last Vital Signs Temp Pulse Resp BP Pulse Ox 111 H 14 157/105 95 02/19/17 23:19 02/19/17 23:19 02/19/17 23:19 02/19/17 23:19 - Physical Exam General Appearance: Yes: Nourished, Appropriately Dressed. No: Apparent Distress, Disheveled, Mild Distress, Moderate Distress, Severe Distress HEENT: positive: EOMI, WENDY, Normal ENT Inspection, Normal Voice Neck: positive: Trachea midline Respiratory/Chest: positive: Lungs Clear, Normal Breath Sounds. negative: Respiratory Distress, Accessory Muscle Use Cardiovascular: positive: Regular Rhythm, Regular Rate Gastrointestinal/Abdominal: positive: Flat, Soft Musculoskeletal: positive: Normal Inspection Integumentary: positive: Normal Color, Dry, Warm Neurologic: positive: Alert, Normal Mood/Affect, Motor Strength 5/5, Other (pt is non-compliant with exam) ED Treatment Course - RADIOLOGY Radiology Studies Ordered: Category Date Time Status HEAD CT WITHOUT CONTRAST [CT] Stat CT Scan 02/20/17 00:01 Completed Medical Decision Making - Medical Decision Making 02/26/17 20:33 Pt was brought in by police, as he had eloped from the medical floor. Daughter at bedside. I spoke to the daughter and explained to her that she needs to speak to her father (patient) and explain to him that he needs to stay in the hospital for treatment. I observed pt attempting to flee the ER twice after he was brought in by PD. Pt is stable and alert. In no distress. CT scan ordered for alleged AMS of patient. Head CT normal. Pt was sent back up to his bed on the medical floor. *DC/Admit/Observation/Transfer Diagnosis at time of Disposition: Altered mental status - Referrals - Patient Instructions - Post Discharge Activity
== END 2017-02-20 01:31 | disposition still patient (30) ==
LOC: JER 23:13
DX: R41.82 Altered mental status, unspecified (principal); F10.230 Alcohol dependence with withdrawal, uncomplicated; R79.89 Other specified abnormal findings of blood chemistry
CPT/HCPCS: 70450-TC; 99281-25